=== PATIENT | male | born 1950 | race African-American/Black ===

== ENCOUNTER → 2020-06-07 10:08 | Outpatient (BNVA) | payer OTHER, MEDICARE, SELFPAY | PROVIDERS: Family Provider Family Medicine; PCP Family Medicine; Visit Provider Nurse Practitioner Family | DX: E11.37X3 Type 2 diabetes mellitus with diabetic macular edema, resolved following treatment, bilateral (principal); I10 Essential (primary) hypertension; E78.5 Hyperlipidemia, unspecified | CPT/HCPCS: 80053; 80061; 83036; 84439; 84443; 85025 ==

== ENCOUNTER 2021-03-19 11:05 | Emergency (ER) | payer MEDICARE, SELFPAY ==
[2021-03-19 11:12] VITALS: BP 171/83; PULSE 94; RESP 18; TEMP 36.7; O2SAT 99; BMI 31.4
--- NOTE | 2021-03-19 11:56 | CTR_ITS ---
PROCEDURE INFORMATION: Exam: CT Head Without Contrast Exam date and time: 03/19/2021 12:40 PM Age: 70 years old Clinical indication: Speech disturbance; Slurred speech; Additional info: Altered mental status, slurred speech TECHNIQUE: Imaging protocol: Computed tomography of the head without contrast. Radiation optimization: All CT scans at this facility use at least one of these dose optimization techniques: automated exposure control; mA and/or kV adjustment per patient size (includes targeted exams where dose is matched to clinical indication); or iterative reconstruction. COMPARISON: CT head wo con* [id number] 02/08/2017 8:13 PM RADIATION DOSE METRICS: Total DLP (mGy-cm): 881.62 FINDINGS: Brain: There is generalized chronic atrophy. The ventricles and sulci are prominent. There is decreased white matter density indicating chronic small vessel white matter ischemia. There is mineralization of the basal ganglia. No intracranial hemorrhage, edema or other acute abnormalities are seen in the brain. Cerebral ventricles: See Brain finding. Bones/joints: Unremarkable. No acute fracture. Paranasal sinuses: There is scattered mild mucosal thickening in the paranasal sinuses. Mastoid air cells: Visualized mastoid air cells are well aerated. Soft tissues: Unremarkable. CT/CT head wo con* [id number] IMPRESSION: 1. No acute intracranial abnormality. 2. Chronic atrophy with chronic white matter ischemic changes. Radiation Dose CTDIVOL = (mGy): DLP = 881.62 (mGy-cm)
[2021-03-19 12:11] LABS: Basophils % 0.5 %; Eosinophils # 0.4 10^3/uL (0.0-0.8); Eosinophils % 4.4 %; Hematocrit 47.3 % (42.0-52.0); Hemoglobin 14.5 g/dL (11.7-16.6); Lymphocytes # 1.8 10^3/uL (0.8-4.8); Lymphocytes % 22.3 %; Mean Corpuscular HGB Conc 30.7 g/dL (30.0-36.0); Mean Corpuscular Hemoglobin 28.7 pg (28.0-34.0); Mean Corpuscular Volume 93.7 fL (80-94); Mean Platelet Volume 10.3 fL (7.4-10.4); Monocytes # 0.9 10^3/uL (0.2-0.9); Monocytes % 10.9 %; Neutrophils # 5.06 10^3/uL (1.8-7.7); Neutrophils % 61.8 %; Nucleated Red Blood Cells % 0 %; Platelet Count 226 10^3/cmm (130-400); Red Blood Count 5.05 10^6/uL (4.1-5.3); Red Cell Distribution Width 11.9 % (12.1-15.1); White Blood Count 8.2 10^3/uL (4.0-10.0)
[2021-03-19 12:24] LABS: Alanine Aminotransferase 14 U/L (0-41); Albumin Level 4.3 g/dL (3.5-5.2); Alkaline Phosphatase 79 IU/L (40-130); Anion Gap 14.2 (5-19); Aspartate Amino Transferase 15 U/L (0-40); Blood Urea Nitrogen 11 mg/dL (8-23); Calcium 8.8 mg/dL (8.5-10.5); Carbon Dioxide 24 mmol/L (22-29); Chloride 102 mmol/L (98-107); Glomerular Filtration Rate 89.6 mL/min (90-130); Glucose 121 mg/dL (65-115); Magnesium 2.2 mg/dL (1.7-2.3); Osmolality Calculated 283 mOsm/kg (285-295); Potassium 4.2 mmol/L (3.5-5.1); Sodium 136 mmol/L (136-145); Thyroid Stimulating Hormone 2.37 uIU/mL (0.27-4.20); Total Bilirubin 0.4 mg/dL (0.15-1.2); Total Protein 7.3 g/dL (6.6-8.7)
--- NOTE | 2021-03-19 13:08 | ED_ITS ---
HPI - Neuro Symptoms/Deficit General: Chief Complaint: Neuro Symptoms/Deficit Stated Complaint: STUMBLING Time Seen by Provider: 03/19/21 11:31 History of Present Illness: HPI Narrative: 70-year-old male was brought in by his . She states about 10 AM he was stumbling and seems somewhat confused. He was difficult to understand. Patient stated he felt somewhat dizzy. He denied that he was having any difficulty walking. He denied any weakness in his arms or legs. He took 6 x 81 mg aspirins. His states that he is supposed to take an aspirin every day but he does not do that. She also states she does not take his blood pressure medicine on a regular basis. states that he started doing better 15-20 minutes after it started. Patient denies any fever chills. No nausea or vomiting. No diarrhea constipation. No pain or burning with urination. He has not had any difficulty breathing or shortness of breath. He denies any chest pain. Onset (ago): hour(s) (This occurred at approximately 10 AM) Timing confirmed by: spouse Location: speech and left face History of same: No Severity: moderate Quality: other (Symptoms resolved 15-20 minutes after they started.) Relieving factors: rest Exacerbating factors: none Context: sudden onset On Anticoagulants: No (He is supposed to take aspirin every day but he does not do that.) Associated symptoms: Reports vertigo (He states he did feel somewhat dizzy at that time.); Deny chest pain, cough, diaphoresis, fevers/chills, headache(s), nausea, seizures, short of breath, syncope, tingling, vomiting or weakness Treatments Prior to Arrival: Aspirin (Patient took 6 x 81 mg aspirin) Review of Systems Const: Denies: fever(s), chills, body aches, change in appetite, fatigue, night sweats or diaphoresis Eyes: Reports: other (Patient is blind in the right eye.); Denies: change in vision or blurry vision Card: Reports: lightheadedness; Denies: chest pain, palpitations, irregular heart rhythm, edema, swelling of feet/ankles, syncope, pre-syncope, dyspnea on exertion, orthopnea or leg pain with exertion Resp: Denies: dyspnea, productive cough, non-productive cough, wheezing, stridor or pain on inspiration GI: Denies: abdominal pain, nausea, vomiting, dysphagia, diarrhea or constipation : Denies: flank pain, difficulty urinating or dysuria Musc: Denies: neck pain, back pain, extremity pain, extremity swelling, joint pain, joint swelling, limited range of motion or muscle weakness Neuro: Reports: dizziness, vertigo (He states he did feel somewhat dizzy at that time.), Slurred speech present and other (Left-sided facial droop); Denies: headache(s), numbness in extremities, weakness in extremities, sensory changes, lack of coordination, difficulty walking or confusion PFSH ED PFSH: Medical History Amputated toe Social History Smoking and tobacco status: former smoker Quit status (tobacco): has quit using tobacco Year quit tobacco: 1997 Alcohol intake: never NIH stroke score NIHSS: Level Of Consciousness - 1a: 0 Level Of Consciousness Questions - 1b: Both Correct Level Of Consciousness Commands - 1c: Both Correct Best Gaze - 2: Normal Visual [place] - 3: No Visual Loss Facial Palsy - 4: Normal Motor Arm Right - 5: No Drift Motor Arm Left - 5: No Drift Motor Leg Right - 6: No Drift Motor Leg Left - 6: No Drift Limb Ataxia - 7: Absent Sensory - 8: Normal Best Language - 9: No Aphasia Dysarthia - 10: Normal Extinction And Inattention - 11: 0 Score: Total Score: 0 Physical Exam Const: COMMON NORMALS: patient oriented x3 and alert GENERAL APPEARANCE: well kempt; not lethargic ORIENTATION/CONSCIOUSNESS: Yes oriented to person, Yes oriented to place and Yes oriented to time; not lethargic HENMT: COMMON NORMALS: normocephalic, atraumatic, hearing grossly normal bilaterally, Normal external nose present, Normal nasal mucous membranes and turbinates present and moist oral mucous membranes HEAD & SCALP: normal to inspection, normocephalic and atraumatic NOSE: Normal external nose present and Normal nasal mucous membranes and turbinates present Eye: COMMON NORMALS: Equal, round and reactive pupils present (Patient is blind in the right eye.), EOMs intact bilaterally, no scleral icterus and no papilledema GENERAL EYE: no appearance normal, both eyes and all related structures (Patient is blind in the right eye. Left eye is unremarkable) and normal light reflex (Normal in the left only.) DIRECT OPHTHALMOSCOPY: Yes normal light reflex (Normal in the left only.) and Yes no papilledema Neck/C-Spine: COMMON NORMALS: full ROM, supple, no meningeal signs, no JVD and Thyroid normal GENERAL: Yes normal visual inspection, Yes trachea midline, No anterior neck swelling and No tender THYROID: Thyroid normal CERVICAL SPINE: No cervical ROM normal Chest: COMMONS NORMALS: normal inspection of the chest Resp: COMMON NORMALS: normal respiratory effort, No retractions, No use of accessory muscles and clear to auscultation bilaterally EFFORT & INSPECTION: Yes able to speak in complete sentences, Yes symmetric chest movement, No abnormal respiratory pattern, No tachypneic, No respiratory distress, No decreased respiratory effort, No labored, No grunting, No stridor, No Actively coughing, No retractions and No uses accessory muscles AUSCULTATION: clear to auscultation bilaterally, no crackles, no rales, no rhonchi, no wheezes, breath sounds present and lung sounds not diminished Cardio: COMMON NORMALS: no JVD, regular rate, regular rhythm, No gallops present (Cardio), No clicks present (Cardio), No murmurs present (Cardio) and No rub (Cardio) RATE: regular rate RHYTHM: regular rhythm HEART SOUNDS: no murmurs GI: COMMON NORMALS: Soft to palpation, non-tender, No hepatosplenomegaly present and no masses PALPATION: Yes Soft to palpation and Yes No hepatosplenomegaly present : COMMON NORMALS: Yes no CVA tenderness BLADDER/KIDNEY EXAM: Yes no CVA tenderness Back/Pelvis: COMMON NORMALS: no CVA tenderness Extremity: COMMON NORMALS: full ROM, capillary refill normal and no joint enlargement GENERAL: Yes normal exam except as noted Neuro: COMMON NORMALS: patient oriented x3, CN's II-XII intact bilaterally, moves all extremities, no focal motor deficits and gait normal SENSORIUM/ORIENTATION: Yes alert, Yes oriented to person, Yes oriented to place, Yes oriented to time, No Orientation impaired, No lethargic, No somnolent, No obtunded and No stuporous MENINGEAL SIGNS: Yes no meningeal signs COORDINATION/BALANCE: [id number] test normal and fimp-ul-qhet test normal SPEECH: speech normal GAIT: Yes Normal gait present COORDINATION: [id number] test normal and [id number]-uk-[id number] test normal Psych: COMMON NORMALS: mental status grossly normal, Normal thought process present, cooperative, normal affect, speech normal and activity/motor behavior normal APPEARANCE: Yes grossly normal and Yes well kempt ATTITUDE: Yes calm and Yes engaged ACTIVITY/MOTOR BEHAVIOR: Yes appropriate eye contact SPEECH: Yes normal speech THOUGHT PROCESS: Normal thought process present THOUGHT CONTENT: Yes Normal thought content present ATTENTION/CONCENTRATION: Yes attention grossly intact and Yes concentration grossly intact Skin: COMMON NORMALS: no rashes or lesions noted GENERAL SKIN EXAM: no rashes or lesions noted Course Vital Signs: Vital signs: Vital Signs Temperature 98.1 F 03/19/21 14:29 Pulse Rate 94 03/19/21 11:12 Respiratory Rate 18 03/19/21 14:29 Blood Pressure 171/83 03/19/21 11:12 Pulse Oximetry 99 03/19/21 14:29 MDM - Neuro Symptoms/Deficit Lab Data: Labs: Lab Results 03/19/21 03/19/21 03/19/21 Range/Units 11:40 11:40 13:39 WBC 8.2 (4.0-10.0) 10^3/ uL RBC 5.05 (4.1-5.3) 10^6/u L Hgb 14.5 (11.7-16.6) g/dL Hct 47.3 (42.0-52.0) % MCV 93.7 (80-94) fL MCH 28.7 (28.0-34.0) pg MCHC 30.7 (30.0-36.0) g/dL RDW 11.9 L (12.1-15.1) % Plt Count 226 (130-400) 10^3/c mm MPV 10.3 (7.4-10.4) fL Neut % (Auto) 61.8 % Lymph % (Auto) 22.3 % [place] % (Auto) 10.9 % Eos % (Auto) 4.4 % Baso % (Auto) 0.5 % Neut # (Auto) 5.06 (1.8-7.7) 10^3/u L Lymph # (Auto) 1.8 (0.8-4.8) 10^3/u L [place] # (Auto) 0.9 (0.2-0.9) 10^3/u L Eos # (Auto) 0.4 (0.0-0.8) 10^3/u L Baso # (Auto) 0.0 (0.0-0.1) 10^3/u L Nucleated RBC % (a uto) 0 % Nucleated RBCs # 0.0 /100WBC Sodium 136 (136-145) mmol/L Potassium 4.2 (3.5-5.1) mmol/L Chloride 102 (98-107) mmol/L Carbon Dioxide 24 (22-29) mmol/L Anion Gap 14.2 (5-19) BUN 11 (8-23) mg/dL Creatinine 1.0 (0.7-1.2) mg/dL GFR Calculation 89.6 L (90-130) mL/min Glucose 121 H (65-115) mg/dL Calculated Osmolal ity 283 L (285-295) mOsm/k g Calcium 8.8 (8.5-10.5) mg/dL Magnesium 2.2 (1.7-2.3) mg/dL Total Bilirubin 0.4 (0.15-1.2) mg/dL AST 15 (0-40) U/L ALT 14 (0-41) U/L Alkaline Phosphata se 79 (40-130) IU/L Total Protein 7.3 (6.6-8.7) g/dL Albumin 4.3 (3.5-5.2) g/dL Globulin 3.0 (1.3-4.6) g/dL TSH 2.37 (0.27-4.20) uIU/ mL Urine Color Straw (Yellow) Urine Appearance Clear (CLEAR) Urine pH 7 (5-7) Ur Specific Gravit y 1.005 (1.005-1.030) Urine Protein Neg (Negative) Urine Glucose (UA) Norm (Normal) Urine Ketones Negative (Negative) Urine Blood Neg (Negative) Urine Nitrate Negative (Negative) Urine Bilirubin Neg (Negative) Urine Urobilinogen Norm (Negative) mg/dL Ur Leukocyte [place] ase Negative (Negative) Discharge Plan Discharge Patient Disposition: Home Clinical Impression: TIA (transient ischemic attack), Dizziness Type 2 diabetes mellitus Qualifiers: Diabetes mellitus retirement insulin use: without 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 Diabetes mellitus complication status: without complication Qualified Code(s): E11.9 - Type 2 diabetes mellitus without complications Condition: Stable Prescriptions: No Action aspirin [Adult Aspirin Regimen] 81 mg tablet,delayed release (DR/EC) 81 mg PO DAILY RF: 0 brimonidine 0.1 % drops 1 drop ophthalmic (eye) BID RF: 0 latanoprost 0.005 % drops 1 drop ophthalmic (eye) BEDTIME RF: 0 metformin 500 mg tablet 500 mg PO DAILY PRN (Reason: diabetes) RF: 0 dorzolamide-timolol 22.3-6.8 mg/mL drops 1 drp ophthalmic (eye) BID RF: 0 Vitamin B-12 1 tab PO PRN RF: 0 Vitamin C 1 tab PO PRN RF: 0 Vitamin D3 1 cap PO PRN RF: 0 lisinopril 5 mg tablet 5 mg PO DAILY RF: 0 Discharge Orders: Discharge ED (Routine); Ordered 03/19/21 Ordered By: Jakob Noonan Referrals: Tonio Delatorre DO [Primary Care Provider] - Discharge Diet: Diabetic Discharge Activity: Increase activity as tolerated Patient Instructions: Opioid Safety Activity Restrictions/Additional Instructions: Take your aspirin every day. Take your blood pressure medicines every day. Take all of your other medications as prescribed. Please monitor your blood pressure on a regular basis. Continue to monitor your blood sugars. Follow-up with your primary care physician. 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
--- NOTE | 2021-03-19 13:15 | PC.PHAR ---
pt states he takes care of his own medications-pt states he hasnt taken his lisinopril for a month or maybe less-pt states he takes metformin 500mg once a day prn-ext med history shows last filled on 11/21/20 90d/s as 500mg bid-
[2021-03-19 13:59] LABS: Add Urine Microscopic? NO; Charge for UA Resulting for Rev
[2021-03-19 14:04] LABS: Bilirubin Urine Neg (Negative); Blood Urine Neg (Negative); Glucose Urine UA Norm (Normal); Ketones Urine Negative (Negative); Leukocyte Esterase Urine Negative (Negative); Nitrate Urine Negative (Negative); Protein Urine Neg (Negative); Specific Gravity, Urine 1.005 (1.005-1.030); Urine Appearance Clear (CLEAR); Urine Color Straw (Yellow); Urobilinogen Urine Norm (Negative); pH Urine 7 (5-7)
[2021-03-19 14:29] VITALS: RESP 18; TEMP 36.7; O2SAT 99
== END 2021-03-19 14:29 | disposition home or self-care (01) ==
PROVIDERS: Emergency Provider Emergency Medicine; PCP Family Medicine
DX: G45.9 Transient cerebral ischemic attack, unspecified (principal); R42 Dizziness and giddiness; E11.9 Type 2 diabetes mellitus without complications; Z79.82 Long term (current) use of aspirin; Z87.891 Personal history of nicotine dependence
CPT/HCPCS: 70450; 80053; 81003; 83735; 84443; 85025; 99283

== ENCOUNTER → 2021-03-22 10:06 | Outpatient (BNVA) | payer MEDICARE, SELFPAY | PROVIDERS: PCP Family Medicine; Visit Provider Family Medicine | DX: E11.9 Type 2 diabetes mellitus without complications (principal); G45.9 Transient cerebral ischemic attack, unspecified; R42 Dizziness and giddiness; Z09 Encounter for follow-up examination after completed treatment for conditions other than malignant neoplasm; I10 Essential (primary) hypertension | CPT/HCPCS: 80061; 83036 ==

== ENCOUNTER 2021-04-03 10:04 | Observation (INO) | payer MEDICARE, SELFPAY ==
[2021-04-03] VITALS (12 sets, daily range): BP systolic 158–199; BP diastolic 79–105; PULSE 48–99; RESP 16–18; TEMP 36.3–37.3; O2SAT 95–100; BMI 31.5
--- NOTE | 2021-04-03 10:34 | ECG_ITS ---
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 Measurements Intervals Maud Rate: 51 P: 51 PA: 180 QRS: -47 QRSD: 110 T: -16 QT: 417 QTc: 386 Interpretive Statements SINUS BRADYCARDIA POSSIBLE RIGHT VENTRICULAR CONDUCTION DELAY [RSR (QR) IN V1/V2] LEFT ANTERIOR FASCICULAR BLOCK [QRS AXIS <= -45, QR IN I, RS IN II] MODERATE VOLTAGE CRITERIA FOR LVH, CONSIDER NORMAL VARIANT [MEETS CRITERIA IN ONE OF: R(aVL), S(V1), R(V5), R(V5/V6)+S(V1)] No previous ECG available for comparison Electronically Signed On 04-04-2021 9:27:29 CDT by Cassie Tamayo M.D. [email or web address]
--- NOTE | 2021-04-03 10:34 | CT_ITS ---
WS: [id number] CT HEAD NONCONTRAST HISTORY: Symptoms of Acute Stroke TECHNIQUE: Contiguous axial imaging performed through the brain in 2.5 mm imaging. Bone and soft tiss ue windows. Sagittal and coronal reformats reviewed. All CT scans at [facility] use at ast one of these dose optimization techniques: automated exposure control; mA and/or kV adjustment pe r patient size (includes targeted exams where dose is matched to clinical indication); or iterative r econstruction. DLP: 1010.81 mGy-cm. COMPARISON: 03/19/2021 No acute intracranial hemorrhage, midline shift or mass effect. Mild atrophy with moderate to severe chronic microvascular ischemic changes in the white matter. Ther e is a new area of decreased attenuation in the RIGHT bryant radiata. Bilateral basal ganglia calcif ications. Ventricles: Normal size with no hydrocephalus. Paranasal sinuses: Mild mucoperiosteal thickening in the LEFT maxillary sinus. No air-fluid levels. Mastoid air cells: Well pneumatized. Calvarium and scalp: No skull fracture. There is mild scalp edema. Abnormal RIGHT orbit. CT/CT head wo con* [id number] IMPRESSION: 1. No acute intracranial hemorrhage or edema. 2. Subacute infarct has developed since 03/19/2021 within the RIGHT bryant radi emile. 3. Moderate chronic microvascular ischemic changes. Notified Merlin Mendoza DO at 04/03/2021 10:46 AM.
--- NOTE | 2021-04-03 10:35 | ED_ITS ---
HPI - Neuro Symptoms/Deficit General: Chief Complaint: Neuro Symptoms/Deficit Stated Complaint: TIA's, Here Recently Time Seen by Provider: 04/03/21 10:22 History of Present Illness: HPI Narrative: 70-year-old male presents emergency room complaining of left-sided facial droop slurring of speech and left-sided weakness. He went to bed last night said he felt dizzy that was around 930 then this morning when he woke up he had left-sided weakness and facial droop. He has some distortion of facial muscles due to loss of the right eye. Patient does have a little bit of dizziness he was evaluated 2 weeks ago and no significant abnormality was found at that time. He was started on aspirin but he does not appear to be on a statin according to his medication list. Onset (ago): hour(s) Timing confirmed by: spouse Location: speech, left face, left arm and left leg History of same: Yes Severity: mild Quality: weak and tingling Associated symptoms: Deny chest pain, malaise, nausea or vomiting Review of Systems Const: Denies: fever(s), chills, body aches, change in appetite, fatigue or malaise ENMT: Denies: throat pain, ear or mastoid pain, nasal discharge or nasal congestion Card: Denies: chest pain, edema, dyspnea on exertion or orthopnea Resp: Denies: dyspnea, productive cough or non-productive cough GI: Denies: abdominal pain, nausea, vomiting, hematemesis, coffee ground emesis, diarrhea, constipation, bloating, hematochezia or melena : Denies: flank pain, dysuria, urinary frequency or urinary urgency Skin/Breast: Denies: rash or pruritus PFSH ED PFSH: Medical History (Updated 04/04/21 @ 16:56 by Merlin Mendoza DO) Amputated toe Social History Smoking and tobacco status: former smoker Quit status (tobacco): has quit using tobacco Year quit tobacco: 1997 Alcohol intake: never NIH stroke score NIHSS: Level Of Consciousness - 1a: 0 Level Of Consciousness Questions - 1b: Both Correct Level Of Consciousness Commands - 1c: Both Correct Best Gaze - 2: Normal Visual [place] - 3: No Visual Loss Facial Palsy - 4: Par tial Paralysis Motor Arm Right - 5: No Drift Motor Arm Left - 5: No Drift Motor Leg Right - 6: No Drift Motor Leg Left - 6: No Drift (His strength is not as brisk in the left compared to the right however he is able to perform all functions leg raising and [id number]) Limb Ataxia - 7: Absent Sensory - 8: Normal Best Language - 9: No Aphasia Dysarthia - 10: Normal E xtinction And Inattention - 11: 0 Score: Total Score: 2 Physical Exam Const: COMMON NORMALS: no acute distress GENERAL APPEARANCE: cooperative and comfortable ORIENTATION/CONSCIOUSNESS: Yes awake, Yes oriented to person, Yes oriented to place and Yes oriented to time HENMT: COMMON NORMALS: normocephalic, atraumatic, hearing grossly normal bilaterally, external ears normal, EAC's normal, TM's normal bilaterally, Normal nasal mucous membranes and turbinates present, moist oral mucous membranes and oropharynx normal HEAD & SCALP: normocephalic and atraumatic NOSE: Normal nasal mucous membranes and turbinates present EXTERNAL EAR: Yes external ears normal EXTERNAL AUDITORY CANAL: EAC's normal TYMPANIC MEMBRANE: TM's normal bilaterally Eye: COMMON NORMALS: Equal, round and reactive pupils present, EOMs intact bilaterally, conjunctivae normal and no scleral icterus CONJUNCTIVA: Yes conjunctivae normal PUPIL: Yes Equal, round and reactive pupils present Neck/C-Spine: COMMON NORMALS: full ROM, no lymphadenopathy, supple and no JVD Lymph: LYMPHATIC: no lymphadenopathy noted and no lymphedema noted Resp: COMMON NORMALS: normal respiratory effort, No retractions, No use of accessory muscles and clear to auscultation bilaterally AUSCULTATION: clear to auscultation bilaterally Cardio: COMMON NORMALS: no JVD, regular rate, regular rhythm and No murmurs present (Cardio) RATE: regular rate RHYTHM: regular rhythm GI: COMMON NORMALS: Soft to palpation and No hepatosplenomegaly present AUSCULTATION: Yes normoactive bowel sounds PALPATION: Yes Soft to palpation, No Tenderness to palpation present (GI), No Guarding due to palpation present (GI) and Yes No hepatosplenomegaly present Extremity: COMMON NORMALS: normal to inspection, capillary refill normal, no clubbing, cyanosis or edema, no calf tenderness and no pedal edema Neuro: SENSORIUM/ORIENTATION: Yes oriented to person, Yes oriented to place and Yes oriented to time Skin: COMMON NORMALS: no rashes or lesions noted GENERAL SKIN EXAM: no rashes or lesions noted Course Vital Signs: Vital signs: Vital Signs Temperature 98.0 F 04/04/21 11:44 Pulse Rate 63 04/04/21 11:44 Respiratory Rate 16 04/04/21 11:44 Blood Pressure 142/84 04/04/21 11:44 Pulse Oximetry 98 04/04/21 11:44 MDM - Neuro Symptoms/Deficit MDM Narrative: Medical decision making narrative: Subacute CVA. Admitted for further work-up including echo carotids etc. Lab Data: Labs: Lab Results 04/03/21 04/03/21 04/03/21 Range/Units 11:01 11:01 11:01 WBC 8.1 (4.0-10.0) 10^3/ uL RBC 5.27 (4.1-5.3) 10^6/u L Hgb 15.5 (11.7-16.6) g/dL Hct 50.0 (42.0-52.0) % MCV 94.9 H (80-94) fL MCH 29.4 (28.0-34.0) pg MCHC 31.0 (30.0-36.0) g/dL RDW 11.9 L (12.1-15.1) % Plt Count 215 (130-400) 10^3/c mm MPV 10.7 H (7.4-10.4) fL Neut % (Auto) 62.9 % Lymph % (Auto) 24.9 % [place] % (Auto) 8.5 % Eos % (Auto) 3.0 % Baso % (Auto) 0.5 % Neut # (Auto) 5.08 (1.8-7.7) 10^3/u L Lymph # (Auto) 2.0 (0.8-4.8) 10^3/u L [place] # (Auto) 0.7 (0.2-0.9) 10^3/u L Eos # (Auto) 0.2 (0.0-0.8) 10^3/u L Baso # (Auto) 0.0 (0.0-0.1) 10^3/u L Nucleated RBC % (a uto) 0 % Nucleated RBCs # 0.0 /100WBC PT 14.10 (12.1-14.9) SECO NDS INR 1.05 (0.8-1.2) APTT 30.7 (23.9-36.7) SECO NDS Sodium 137 (136-145) mmol/L Potassium 4.5 (3.5-5.1) mmol/L Chloride 102 (98-107) mmol/L Carbon Dioxide 29 (22-29) mmol/L Anion Gap 10.5 (5-19) BUN 12 (8-23) mg/dL Creatinine 1.1 (0.7-1.2) mg/dL GFR Calculation 80.3 L (90-130) mL/min Glucose 124 H (65-115) mg/dL Calculated Osmolal ity 285 (285-295) mOsm/k g Calcium 9.2 (8.5-10.5) mg/dL Total Bilirubin 0.5 (0.15-1.2) mg/dL AST 12 (0-40) U/L ALT 12 (0-41) U/L Alkaline Phosphata se 82 (40-130) IU/L Total Protein 7.6 (6.6-8.7) g/dL Albumin 4.6 (3.5-5.2) g/dL Globulin 3.0 (1.3-4.6) g/dL Urine Color (Yellow) Urine Appearance (CLEAR) Urine pH (5-7) Ur Specific Gravit y (1.005-1.030) Urine Protein (Negative) Urine Glucose (UA) (Normal) Urine Ketones (Negative) Urine Blood (Negative) Urine Nitrate (Negative) Urine Bilirubin (Negative) Prot Sulfosalicyli c Acd (Negative) Urine Urobilinogen (Negative) mg/dL Ur Leukocyte [place] ase (Negative) Urine Opiates Scre en (Negative) ng/mL Ur Barbiturates Sc reen (Negative) ng/mL Ur Phencyclidine S crn (Negative) ng/mL Ur Amphetamines Sc reen (Negative) ng/mL U Benzodiazepines Scrn (Negative) ng/mL Urine Cocaine Scre en (Negative) ng/mL U Marijuana (THC) Screen (Negative) ng/mL 04/03/21 04/03/21 Range/Units 11:25 11:25 WBC (4.0-10.0) 10^3/ uL RBC (4.1-5.3) 10^6/u L Hgb (11.7-16.6) g/dL Hct (42.0-52.0) % MCV (80-94) fL MCH (28.0-34.0) pg MCHC (30.0-36.0) g/dL RDW (12.1-15.1) % Plt Count (130-400) 10^3/c mm MPV (7.4-10.4) fL Neut % (Auto) % Lymph % (Auto) % [place] % (Auto) % Eos % (Auto) % Baso % (Auto) % Neut # (Auto) (1.8-7.7) 10^3/u L Lymph # (Auto) (0.8-4.8) 10^3/u L [place] # (Auto) (0.2-0.9) 10^3/u L Eos # (Auto) (0.0-0.8) 10^3/u L Baso # (Auto) (0.0-0.1) 10^3/u L Nucleated RBC % (a uto) % Nucleated RBCs # /100WBC PT (12.1-14.9) SECO NDS INR (0.8-1.2) APTT (23.9-36.7) SECO NDS Sodium (136-145) mmol/L Potassium (3.5-5.1) mmol/L Chloride (98-107) mmol/L Carbon Dioxide (22-29) mmol/L Anion Gap (5-19) BUN (8-23) mg/dL Creatinine (0.7-1.2) mg/dL GFR Calculation (90-130) mL/min Glucose (65-115) mg/dL Calculated Osmolal ity (285-295) mOsm/k g Calcium (8.5-10.5) mg/dL Total Bilirubin (0.15-1.2) mg/dL AST (0-40) U/L ALT (0-41) U/L Alkaline Phosphata se (40-130) IU/L Total Protein (6.6-8.7) g/dL Albumin (3.5-5.2) g/dL Globulin (1.3-4.6) g/dL Urine Color Straw (Yellow) Urine Appearance Clear (CLEAR) Urine pH 8 H (5-7) Ur Specific Gravit y 1.010 (1.005-1.030) Urine Protein Neg (Negative) Urine Glucose (UA) Norm (Normal) Urine Ketones Negative (Negative) Urine Blood Neg (Negative) Urine Nitrate Negative (Negative) Urine Bilirubin Neg (Negative) Prot Sulfosalicyli c Acd Negative (Negative) Urine Urobilinogen Norm (Negative) mg/dL Ur Leukocyte [place] ase Negative (Negative) Urine Opiates Scre en Negative (Negative) ng/mL Ur Barbiturates Sc reen Negative (Negative) ng/mL Ur Phencyclidine S crn Negative (Negative) ng/mL Ur Amphetamines Sc reen Negative (Negative) ng/mL U Benzodiazepines Scrn Negative (Negative) ng/mL Urine Cocaine Scre en Negative (Negative) ng/mL U Marijuana (THC) Screen Negative (Negative) ng/mL Discharge Plan Discharge Patient Disposition: Admitted As Inpatient Admit Provider: Yevgeniy Joyner Clinical Impression: Acute CVA (cerebrovascular accident), Type 2 diabetes mellitus, Hypertension Condition: Stable Coding Level of Care Code 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
[2021-04-03 11:29] LABS: Basophils % 0.5 %; Eosinophils # 0.2 10^3/uL (0.0-0.8); Hemoglobin 15.5 g/dL (11.7-16.6); Lymphocytes % 24.9 %; Mean Corpuscular Hemoglobin 29.4 pg (28.0-34.0); Mean Corpuscular Volume 94.9 fL (80-94); Mean Platelet Volume 10.7 fL (7.4-10.4); Monocytes # 0.7 10^3/uL (0.2-0.9); Monocytes % 8.5 %; Neutrophils # 5.08 10^3/uL (1.8-7.7); Neutrophils % 62.9 %; Nucleated Red Blood Cells % 0 %; Platelet Count 215 10^3/cmm (130-400); Red Blood Count 5.27 10^6/uL (4.1-5.3); Red Cell Distribution Width 11.9 % (12.1-15.1); White Blood Count 8.1 10^3/uL (4.0-10.0)
[2021-04-03 11:30] LABS: INR 1.05 (0.8-1.2)
[2021-04-03 11:31] LABS: Partial Thromboplastin Time 30.7 SECONDS (23.9-36.7)
[2021-04-03 11:32] LABS: Add Urine Microscopic? NO; Charge for UA Resulting for Rev
[2021-04-03 11:32] LABS: Alanine Aminotransferase 12 U/L (0-41); Albumin Level 4.6 g/dL (3.5-5.2); Alkaline Phosphatase 82 IU/L (40-130); Anion Gap 10.5 (5-19); Aspartate Amino Transferase 12 U/L (0-40); Blood Urea Nitrogen 12 mg/dL (8-23); Calcium 9.2 mg/dL (8.5-10.5); Carbon Dioxide 29 mmol/L (22-29); Chloride 102 mmol/L (98-107); Glomerular Filtration Rate 80.3 mL/min (90-130); Glucose 124 mg/dL (65-115); Osmolality Calculated 285 mOsm/kg (285-295); Potassium 4.5 mmol/L (3.5-5.1); Sodium 137 mmol/L (136-145); Total Bilirubin 0.5 mg/dL (0.15-1.2); Total Protein 7.6 g/dL (6.6-8.7)
[2021-04-03 11:44] LABS: Bilirubin Urine Neg (Negative); Blood Urine Neg (Negative); Glucose Urine UA Norm (Normal); Ketones Urine Negative (Negative); Leukocyte Esterase Urine Negative (Negative); Nitrate Urine Negative (Negative); Protein Urine Neg (Negative); Sulfosalicylic Acid Urine Negative (Negative); Urine Appearance Clear (CLEAR); Urine Color Straw (Yellow); Urobilinogen Urine Norm (Negative); pH Urine 8 (5-7)
[2021-04-03 11:50] LABS: Amphetamines Screen Urine Negative (Negative); Barbiturates Screen Urine Negative (Negative); Benzodiazepines Screen Urine Negative (Negative); Cocaine Screen Urine Negative (Negative); Opiate Screen Urine Negative (Negative); PCP Screen Urine Negative (Negative); THC Screen Urine Negative (Negative)
--- NOTE | 2021-04-03 15:19 | USCV_ITS ---
Jerson Francis Age: 70 Gender: M : 1950 Exam Date: 04/03/2021 15:40 Ordering Phys: Yevgeniy Joyner MD Technologist: Dorothy Roberts Exam Location: [facility] [place]_ Indication: AC CVA Risk Factors: Previous Vascular Surgery: Right Brachial BP: / Left Brachial BP: / Right Left Velocity (cm/s) Spectral Plaque Velocity (cm/s) Spectral Plaque Syst/Diast Broadening Syst/Diast Broadening 24.90/ 7.10 Prox CCA 93.10 / 16.20 60.70/ 8.50 Mid CCA 69.40 / 14.10 62.40/ 14.50 Distal CCA 62.10 / 11.70 34.80/ 6.60 Prox ICA 29.20 / 6.00 20.30/ 6.20 Mid ICA 17.30 / 8.90 37.90/ 9.90 Distal ICA 19.30 / 6.10 44.40 ECA 55.00 0.61 ICA/CCA 0.31 Antegrade Vertebral Antegrade 42.10/ 9.20 cm/s 38.00/ 6.00 cm/s Tri Subclavian Tri 84.90 144.8 0 FINDINGS Comparison: none available. No significant elevation of systolic or diastolic velocities. Diffuse bilateral scattered calcified plaque and intimal thickening throughout the common carotid arteries and extending through the bifurcation. No elevation of velocity. Antegrade vertebral arteries. CONCLUSIONS Bilateral ICA stenosis less than 50%. Mild diffuse atherosclerosis. Dr. Mojgan Sherman DO (Electronically Signed) Final Date: 04 Apr 2021 08:14 S
--- NOTE | 2021-04-03 15:22 | PM.HP ---
Providers/Chief Complaint Primary Care Provider: Tonio Delatorre DO Chief Complaint: TIA's, Here Recently History of Present Illness Jerson Francis is a 70 year old male with past medical history of hypertension diabetes, came in today with chief complaint of acute onset of left-sided facial droop, as well as left-sided weakness, started, likely last night, last normal is unknown, not a TPA candidate, based on the low NIHSS, score.He was recently here in the ER on March 19 with similar complaints and was discharged from the ER, after a CT head without contrast was performed, and showed no acute intracranial pathology. He was continued on aspirin 81 mg p.o. daily, along with his other home medications. When I examined the patient today in the ER, he has left facial drop, I have not noted any marked this slurred speech, or gross motor weakness, sensations are intact. Upon arrival in the ER: CT head without contrast: Subacute infarct has developed since 03/19/2021 within the RIGHT bryant radiata. EKG: Sinus bradycardia CBC CMP:Nomal , urinalysis is clean, U tox negative Review of Systems Const: Denies: fever(s), chills, body aches, change in appetite or diaphoresis Card: Denies: palpitations, edema, swelling of feet/ankles, dyspnea on exertion, orthopnea or leg pain with exertion Resp: Denies: dyspnea, productive cough, wheezing or pain on inspiration GI: Denies: abdominal pain, nausea, vomiting, diarrhea or constipation : Denies: flank pain or difficulty urinating Musc: Denies: back pain, extremity pain or extremity swelling Neuro: Denies: headache(s) or confusion Medications/Allergies Home Medications Medication Instructions Recorded Confirmed Last Taken Type aspirin 81 mg tablet,delayed 81 mg PO DAILY 01/15/20 04/03/21 04/03/21 History release 6 tablets today brimonidine 0.1 % eye drops 1 drop OPHTHALMIC (EYE) BID ml 01/15/20 04/03/21 04/02/21 History latanoprost 0.005 % eye drops 1 drop OPHTHALMIC (EYE) BEDTIME 01/15/20 04/03/21 04/02/21 History dorzolamide-timolol 1 drp OPHTHALMIC (EYE) BID 03/19/21 04/03/21 04/02/21 History lisinopril 5 mg PO DAILY 03/19/21 04/03/21 04/03/21 History metformin 500 mg PO BID 03/19/21 04/03/21 Unknown History Allergies Allergy/AdvReac Type Severity Reaction Status Date / Time Penicillins Allergy Mild ALGY-Rash Verified 04/03/21 10:18 PFSH Acute PFSH: Medical History (Updated 04/03/21 @ 15:34 by Yevgeniy Joyner MD) Amputated toe Social History Smoking and tobacco status: former smoker Quit status (tobacco): has quit using tobacco Year quit tobacco: 1997 Alcohol intake: never Vitals/I&O/Wt Last Vital Signs Temp 97.9 F 04/03/21 10:11 Pulse 51 L 04/03/21 11:26 Resp 18 04/03/21 11:24 BP 172/79 04/03/21 11:24 Pulse Ox 97 04/03/21 11:24 Weight last 48 hrs Weight 102.512 kg Physical Exam Const: COMMON NORMALS: patient oriented x3 HENMT: COMMON NORMALS: normocephalic and atraumatic HEAD & SCALP: normocephalic and atraumatic Resp: COMMON NORMALS: clear to auscultation bilaterally EFFORT & INSPECTION: Yes symmetric chest movement AUSCULTATION: clear to auscultation bilaterally Cardio: COMMON NORMALS: regular rate, regular rhythm, S1 normal heart sound present, S2 normal heart sound present, No gallops present (Cardio), No murmurs present (Cardio), No rub (Cardio) and Peripheral pulses 2+ throughout RATE: regular rate RHYTHM: regular rhythm HEART SOUNDS: S1 normal heart sound present and S2 normal heart sound present PERIPHERAL PULSES: Peripheral pulses 2+ throughout GI: COMMON NORMALS: Normal to inspection, nondistended, normoactive bowel sounds present, Soft to palpation, non-tender, No hepatosplenomegaly present and no masses AUSCULTATION: Yes normoactive bowel sounds PALPATION: Yes Soft to palpation and Yes No hepatosplenomegaly present RECTAL EXAM: Yes deferred Extremity: COMMON NORMALS: no clubbing, cyanosis or edema and no pedal edema Neuro: COMMON NORMALS: patient oriented x3, moves all extremities, no focal motor deficits and no sensory deficits noted SENSORIUM/ORIENTATION: Yes alert, Yes oriented to person, Yes oriented to place and Yes oriented to time MOTOR EXAM: 5/5 motor strength present throughout, Pronator motor function not present, no tremor noted, no asterixis, Motor fasciculations not present, Normal motor muscle tone present throughout and Motor abnormalities not present OTHER: Left-sided facial droop. Data : 04/03/21 11:01 04/03/21 11:01 A&P Assessment and plan (1) Acute CVA (cerebrovascular accident): Acute CVA with left-sided facial weakness: CT head without contrast: Subacute infarct has developed since 03/19/2021 within the RIGHT bryant radiata. 2D echo: Carotid Doppler: PT/OT Evalutaion Tele 2 WEEK Event Monitor as outpatient Speech and Swallow Evaluation Permissive HTN for 48 Hrs Aspirin 81 mg po daily Plavix : 75 mg po daily Lipitor 40 mg po daily Status: Acute (2) Hypertension: Status: Acute Qualifiers: Hypertension type: essential hypertension Qualified Code(s): I10 - Essential (primary) hypertension (3) Type 2 diabetes mellitus: LDSSI FSG Hba1C: 6.6 Diabetic diet Status: Acute Qualifiers: Diabetes mellitus jail insulin use: without jail use Diabetes mellitus complication status: without complication Qualified Code(s): E11.9 - Type 2 diabetes mellitus without complications Additional A&P Information CODE STATUS: Full code DVT prophylaxis: On Lovenox Disposition: Home Attestations Medical Necessity Statement*: Patient needs to the hospital for management of acute/subacute CVA. Anticipated length of stay less than 2 midnights. 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
[2021-04-03] MEDS: enoxaparin 40 mg/0.4 mL Syringe SUBCUT (16:11)
[2021-04-03] MEDS: aspirin 81 mg Chew Tablet PO (16:12)
[2021-04-03] MEDS: clopidogrel 75 mg Tablet PO (16:12)
[2021-04-03] MEDS: amlodipine 5 mg Tablet PO (16:21)
[2021-04-03 17:39] LABS: Glucose Point of Care 79 mg/dL (70-110)
[2021-04-03 20:35] LABS: Glucose Point of Care 153 mg/dL (70-110)
[2021-04-03] MEDS: atorvastatin 40 mg Tablet 20 MG PO (21:00)
[2021-04-04] VITALS (11 sets, daily range): BP systolic 126–158; BP diastolic 66–93; PULSE 45–79; RESP 15–18; TEMP 36.6–36.8; O2SAT 96–100
--- NOTE | 2021-04-04 06:00 | USCV_ITS ---
Jerson Francis Age: 70 Gender: M : 1950 Exam Date: 04/04/2021 05:20 Ordering Phys: Merlin Mendoza DO Technologist: Swathi Bosch [place] [facility] [place]ication: CVA BP: 145 / 82 HR: 59 Rhythm: Sinus Technical Quality: TDS MEASUREMENTS (Male / Female) Normal Values 2D ECHO LV Diastolic Diameter PLAX 3.7 cm 4.2 - 5.9 / 3.9 - 5.3 cm LV Systolic Diameter PLAX 2.1 cm LV Chamber Size 3.4 cm IVS Diastolic Thickness 1.2 cm 0.6 - 1.0 / 0.6 - 0.9 cm IVS Systolic Thickness 2.3 cm LVPW Diastolic Thickness 1.3 cm 0.6 - 1.0 / 0.6 - 0.9 cm LVPW Systolic Thickness 1.9 cm RV Chamber Size 3.2 cm LVOT Diameter 2.0 cm LV Ejection Fraction 2D Teich 74.0 % LV Ejection Fraction MOD 2C 62.9 % LV Ejection Fraction 2C AL 65.4 % LA Diameter 3.2 cm LA Width 2.5 cm LA Height 3.7 cm RA Width 3.3 cm RA Height 4.3 cm Aorta at Sinotubular Diameter 4.1 cm M-MODE LV Diastolic Diameter MM 3.2 cm 4.2 - 5.9 / 3.9 - 5.3 cm LV Systolic Diameter MM 1.8 cm LV Ejection Fraction MM Teich 77.3 % IVS Diastolic Thickness MM 0.9 cm 0.6 - 1.0 / 0.6 - 0.9 cm IVS Systolic Thickness MM 1.2 cm LVPW Diastolic Thickness MM 0.8 cm 0.6 - 1.0 / 0.6 - 0.9 cm LVPW Systolic Thickness MM 1.3 cm Aortic Annulus Diameter 4.2 cm LA Ao Ratio MM 0.7 MV E Point Septal Separation 1.3 cm DOPPLER AV Peak Velocity 131.0 cm/s LVOT Peak Velocity 81.0 cm/s AV Area Cont Eq vti 2.5 cm squared AV Area Cont Eq pk 1.9 cm squared MV Area PHT 3.1 cm squared Mitral E to A Ratio 1.0 MV E' Velocity 35.0 cm/s Mitral E to MV E' Ratio 6.8 Mitral E to LV E' Lateral Ratio 5.7 Mitral E to LV E' Septal Ratio 8.3 TR Peak Velocity 125.5 cm/s TR Peak Gradient 6.3 mmHg TR Mean Velocity 85.7 cm/s TR Mean Gradient 3.4 mmHg TR Velocity Time Integral 28.9 cm TV Peak E Velocity 56.0 cm/s Right Atrial Pressure 3.0 mmHg Pulmonary Artery Systolic Pressu 9.3 mmHg PV Peak Velocity 40.0 cm/s RV Acceleration Time 0.1 s RV Ejection Time 0.4 s RV AcT/ET 0.4 FINDINGS Left Ventricle Normal left ventricular size, systolic function with no regional wall motion abnormalities. Left ventricular ejection fraction is estimated at 65 %. Normal diastolic function. Right Ventricle Normal right ventricular size and systolic function. Right ventricular systolic pressure 9.3 mmHg. Right Atrium Normal right atrial size. Left Atrium Normal left atrial size. Mitral Valve Mildly thickened mitral valve. No mitral valve stenosis. Trace mitral valve regurgitation. Aortic Valve Aortic valve not well visualized. No aortic valve stenosis. No aortic valve regurgitation. Tricuspid Valve Tricuspid valve not well visualized. Trace tricuspid valve regurgitation. Pulmonic Valve Pulmonic valve not well visualized. Trace pulmonary valve regurgitation. Pericardium No pericardial effusion. Aorta Mildly dilated aortic root measured anteroposteriorly at 41 mm. Ascending aorta not well visualized. CONCLUSIONS 1. Normal left ventricular size and systolic functionwith no regional wall motion abnormalities. Left ventricular ejection fraction is estimated at 65 %. Normal diastolic function. 2. Normal right ventricular size and systolic function. 3. No significant valvular abnormality. 4. Mildly dilated aortic root measured anteroposteriorly at 41 mm. 5. No prior similar studies to compare. Cassie Tamayo MD (Electronically Signed) Final Date: 04 Apr 2021 17:02 S
[2021-04-04 06:27] LABS: Basophils % 0.4 %; Eosinophils # 0.3 10^3/uL (0.0-0.8); Eosinophils % 3.8 %; Hematocrit 48.9 % (42.0-52.0); Hemoglobin 15.4 g/dL (11.7-16.6); Lymphocytes # 2.2 10^3/uL (0.8-4.8); Mean Corpuscular HGB Conc 31.5 g/dL (30.0-36.0); Mean Corpuscular Hemoglobin 29.4 pg (28.0-34.0); Mean Corpuscular Volume 93.5 fL (80-94); Mean Platelet Volume 10.3 fL (7.4-10.4); Monocytes # 0.9 10^3/uL (0.2-0.9); Monocytes % 12.3 %; Neutrophils % 52.2 %; Nucleated Red Blood Cells % 0 %; Platelet Count 191 10^3/cmm (130-400); Red Blood Count 5.23 10^6/uL (4.1-5.3); Red Cell Distribution Width 11.9 % (12.1-15.1); White Blood Count 7.1 10^3/uL (4.0-10.0)
[2021-04-04 06:42] LABS: Chol HDL Ratio 5.61 mg/dL (1.0-5.00); Cholesterol 157 mg/dL (0-200); HDL Cholesterol 28 mg/dL (60-100); LDL Cholesterol Calculated 92 mg/dL (50-129); LDL HDL Ratio 3.29 RATIO (0.00-3.22); Triglycerides 185 mg/dL (0-150)
[2021-04-04 06:45] LABS: Glucose Point of Care 91 mg/dL (70-110)
[2021-04-04 06:50] LABS: Alanine Aminotransferase 11 U/L (0-41); Albumin Level 4.3 g/dL (3.5-5.2); Alkaline Phosphatase 72 IU/L (40-130); Anion Gap 14.6 (5-19); Aspartate Amino Transferase 13 U/L (0-40); Blood Urea Nitrogen 12 mg/dL (8-23); Calcium 8.8 mg/dL (8.5-10.5); Carbon Dioxide 24 mmol/L (22-29); Chloride 104 mmol/L (98-107); Globulin 3.1 g/dL (1.3-4.6); Glomerular Filtration Rate 80.3 mL/min (90-130); Glucose 84 mg/dL (65-115); Magnesium 2.2 mg/dL (1.7-2.3); Osmolality Calculated 287 mOsm/kg (285-295); Potassium 3.6 mmol/L (3.5-5.1); Sodium 139 mmol/L (136-145); Thyroid Stimulating Hormone 1.76 uIU/mL (0.27-4.20); Total Bilirubin 0.6 mg/dL (0.15-1.2); Total Protein 7.4 g/dL (6.6-8.7)
[2021-04-04 07:03] LABS: Estmated Average Glucose 140; Hemoglobin A1C 6.5 % (4.0-6.0)
[2021-04-04] MEDS: atorvastatin 40 mg Tablet PO (08:48)
[2021-04-04] MEDS: aspirin 81 mg Chew Tablet PO (08:49)
[2021-04-04] MEDS: amlodipine 5 mg Tablet PO (08:49)
[2021-04-04] MEDS: clopidogrel 75 mg Tablet PO (08:49)
[2021-04-04] MEDS: dorzolamide/timolol Op Soln 10 mL Btl 1 DROP EYE-LEFT ×2 (11:11→18:07)
--- NOTE | 2021-04-04 11:58 | PC.OT ---
OT NOTE: OT EVALUATION/SCREEN COMPLETED. PATIENT SHOWS NO DEFICITS ROM OR UB MX STRENGTH. NO DEFICITS NOTED IN ADL PERFORMANCE. NO FURTHER SKILLED OT REQUIRED.
--- NOTE | 2021-04-04 12:00 | PC.NUTR ---
MD consult for dietitian completed. See nutrition assessment for full details.
--- NOTE | 2021-04-04 12:11 | P.PN_ITS ---
Subjective Subjective: Interval history: No significant interval change in left facial weakness.No marked speech abnormality noted. No dysphagia. Vitals/I&O/Wt Last Vital Signs Temp 98.0 F 04/04/21 11:44 Pulse 63 04/04/21 11:44 Resp 16 04/04/21 11:44 BP 142/84 04/04/21 11:44 Pulse Ox 98 04/04/21 11:44 04/03/21 04/04/21 04/04/21 22:59 06:59 14:59 Intake Total 120 / 120 120 / 120 Output Total 500 / 500 400 / 400 Balance 120 / 120 -500 / -380 -280 / -280 Weight last 48 hrs Weight 102.512 kg Physical Exam Const: COMMON NORMALS: patient oriented x3 and alert ORIENTATION/CONSCIOUSNESS: Yes oriented to person, Yes oriented to place and Yes oriented to time HENMT: COMMON NORMALS: normocephalic and atraumatic HEAD & SCALP: normocephalic and atraumatic Resp: COMMON NORMALS: clear to auscultation bilaterally EFFORT & INSPECTION: Yes symmetric chest movement AUSCULTATION: clear to auscultation bilaterally Cardio: COMMON NORMALS: regular rate, regular rhythm, S1 normal heart sound present, S2 normal heart sound present, No gallops present (Cardio), No murmurs present (Cardio), No rub (Cardio) and Peripheral pulses 2+ throughout RATE: regular rate RHYTHM: regular rhythm HEART SOUNDS: S1 normal heart sound present and S2 normal heart sound present PERIPHERAL PULSES: Peripheral puls es 2+ throughout GI: COMMON NORMALS: Normal to inspection, nondistended, normoactive bowel sounds present, Soft to palpation, non-tender, No hepatosplenomegaly present and no masses AUSCULTATION: Yes normoactive bowel sounds PALPATION: Yes Soft to palpation and Yes No hepatosplenomegaly present RECTAL EXAM: Yes deferred Extremity: COMMON NORMALS: no clubbing, cyanosis or edema and no pedal edema Neuro: COMMON NORMALS: patient oriented x3, moves all extremities, no focal motor deficits and no sensory deficits noted SENSORIUM/ORIENTATION: Yes alert, Yes oriented to person, Yes oriented to place and Yes oriented to time MOTOR EXAM: 5/5 motor strength present throughout, Pronator motor function not present, no tremor noted, no asterixis, Motor fasciculations not present, Normal motor muscle tone present throughout and Motor abnormalities not present OTHER: Left-sided facial droop. Data : 04/04/21 05:15 04/04/21 05:15 A&P Assessment and plan (1) Acute CVA (cerebrovascular accident): Acute CVA with left-sided facial weakness: CT head without contrast: Subacute infarct has developed since 03/19/2021 within the RIGHT bryant radiata. 2D echo: Normal left ventricular size and systolic function, no RWMA, EF 65%, normal RV size and systolic function, No significant valvular abnormality. Carotid Doppler:Bilateral ICA stenosis less than 50%. PT/OT Evalutaion Tele : No significant arrhthymia on Tele 2 Weeks Event Monitor as outpatient Speech and Swallow Evaluation Aspirin 81 mg po daily Plavix : 75 mg po daily Lipitor 40 mg po daily Status: Acute (2) Hypertension: Amlodipine 5 mg po daily Status: Acute (3) Type 2 diabetes mellitus: LDSSI FSG Hba1C: 6.6 Diabetic diet Status: Acute (4) Sinus bradycardia: Resolved Status: Acute (5) Urge incontinence of urine: Oxybutynin 5 mg po BID Status: Acute Additional A&P Information CODE STATUS: Full code DVT prophylaxis: On Lovenox Disposition: Home Attestations Medical Necessity Statement*: Patient needs to be in hospital for the management of Ac stroke. Coding Level of Care Code Acute [employer] for [employer] Diagnoses Acute CVA (cerebrovascular accident) I63.9 Hypertension I10 Type 2 diabetes mellitus E11.9 Sinus bradycardia R00.1 Urge incontinence of urine N39.41
[2021-04-04 12:14] LABS: Glucose Point of Care 218 mg/dL (70-110)
--- NOTE | 2021-04-04 12:29 | PC.CHAP ---
Pastoral Care Encounter/Spiritual Assessment Type of Contact [] Declined plycor operator visit [] Patient/Family/Request visit [] Outpatient visit [] Follow-up visit [] Physician referral [] Code/Alert [x] Routine visit [] Staff referral [] Actively dying [] Patient sleeping [] Family support [] [] Out of room [] Palliative care [] [x] Receiving care in room [] Pre-surgical visit [] Trauma [] Long length of stay [] ICU visit [] Other: Relational/Emotional Strength [] Patient feels connected with others/family/visitors/staff [] Distress [] Loneliness/isolation [] Abandonment Spirituality of Patient [] Person of Katie [] Attends Uatsdin of their Katie [] Believes in Prayer [] Reads Bible or Anabaptism materials [] There are Spiritual issues to be addressed Jewelry Engraver Interventions [] Prayer [] Active listening [] Non-anxious presence [] Spiritual/emotional support [] Crisis/trauma care [] Spiritual counseling [] Bereavement support [] Provided bereavement packet [] Provided Bible/devotional materials [] Provided toy/stuffed animal, coloring book to patient or family member [] Provided Communion [] Anointing/Bridgman [] Salvation [] Completed spiritual assessment [] Other: Impact on Illness or Injury [] Angry [] Fearful [] Anxious [] Often cries [] Exhaustion [] Unable to work [] Unable to attend jain [] Unable to walk/stand [] Unable to read [] Unable to drive [] Unable to eat/drink [] Unable to sleep [] Unable to be with family [] Patient intubated [] Other: Summary Time spent with patient
[2021-04-04] MEDS: enoxaparin 40 mg/0.4 mL Syringe SUBCUT (18:08)
[2021-04-04] MEDS: oxybutynin 5 mg Tablet PO (18:08)
[2021-04-04 18:19] LABS: Glucose Point of Care 156 mg/dL (70-110)
[2021-04-04] MEDS: atorvastatin 40 mg Tablet 20 MG PO (20:41)
[2021-04-04 21:10] LABS: Glucose Point of Care 109 mg/dL (70-110)
[2021-04-04] MEDS: latanoprost 0.005% Op Soln 2.5 mL Btl 1 DROP EYE-LEFT (21:18)
[2021-04-04] MEDS: cetylpyridinium Lozenge 1 EACH MUCOUS MEM (21:57)
[2021-04-05] VITALS: BP 134/85; PULSE 49; RESP 18; TEMP 36.7; O2SAT 100
[2021-04-05 01:33] VITALS: PULSE 57; O2SAT 99
[2021-04-05 04:00] VITALS: BP 135/78; PULSE 56; RESP 18; TEMP 36.6; O2SAT 100
[2021-04-05] MEDS: cetylpyridinium Lozenge 1 EACH MUCOUS MEM (04:33)
[2021-04-05 06:00] VITALS: PULSE 46
[2021-04-05 07:05] LABS: Glucose Point of Care 118 mg/dL (70-110)
[2021-04-05 08:00] VITALS: BP 144/85; PULSE 51; RESP 18; TEMP 36.4; O2SAT 99
[2021-04-05] MEDS: atorvastatin 40 mg Tablet PO (09:05)
[2021-04-05] MEDS: aspirin 81 mg Chew Tablet PO (09:05)
[2021-04-05] MEDS: oxybutynin 5 mg Tablet PO (09:05)
[2021-04-05] MEDS: amlodipine 5 mg Tablet PO (09:05)
[2021-04-05] MEDS: clopidogrel 75 mg Tablet PO (09:05)
[2021-04-05] MEDS: dorzolamide/timolol Op Soln 10 mL Btl 1 DROP EYE-LEFT (09:06)
[2021-04-05 09:10] LABS: Basophils % 0.5 %; Eosinophils # 0.3 10^3/uL (0.0-0.8); Eosinophils % 4.1 %; Hematocrit 54.5 % (42.0-52.0); Hemoglobin 16.9 g/dL (11.7-16.6); Lymphocytes # 2.1 10^3/uL (0.8-4.8); Lymphocytes % 28.3 %; Mean Corpuscular Hemoglobin 29.2 pg (28.0-34.0); Mean Corpuscular Volume 94.1 fL (80-94); Mean Platelet Volume 10.3 fL (7.4-10.4); Monocytes # 0.7 10^3/uL (0.2-0.9); Monocytes % 9.4 %; Neutrophils # 4.21 10^3/uL (1.8-7.7); Neutrophils % 57.6 %; Nucleated Red Blood Cells % 0 %; Platelet Count 219 10^3/cmm (130-400); Red Blood Count 5.79 10^6/uL (4.1-5.3); Red Cell Distribution Width 11.8 % (12.1-15.1); White Blood Count 7.3 10^3/uL (4.0-10.0)
[2021-04-05 09:40] LABS: Alanine Aminotransferase 12 U/L (0-41); Albumin Level 4.5 g/dL (3.5-5.2); Alkaline Phosphatase 80 IU/L (40-130); Aspartate Amino Transferase 15 U/L (0-40); Blood Urea Nitrogen 11 mg/dL (8-23); Calcium 9.2 mg/dL (8.5-10.5); Carbon Dioxide 29 mmol/L (22-29); Chloride 104 mmol/L (98-107); Globulin 3.2 g/dL (1.3-4.6); Glomerular Filtration Rate 72.6 mL/min (90-130); Glucose 114 mg/dL (65-115); Osmolality Calculated 290 mOsm/kg (285-295); Sodium 140 mmol/L (136-145); Total Bilirubin 0.6 mg/dL (0.15-1.2); Total Protein 7.7 g/dL (6.6-8.7)
--- NOTE | 2021-04-05 10:40 | PM.DCS ---
Discharge Providers Date of Admission: 04/03/21 15:14 Date of Discharge: April 05, 2021 Attending Provider at Admission: Yevgeniy Joyner MD Attending Provider at Discharge: Yevgeniy Joyner MD Primary Care Provider: Tonio Delatorre DO Diagnoses at Discharge Discharge Diagnosis (1) Acute CVA (cerebrovascular accident): Status: Resolved Permanent problem details: With residual left facial and left upper extremity weakness (2) Hypertension: Status: Chronic (3) Type 2 diabetes mellitus: Status: Chronic (4) Sinus bradycardia: Status: Acute (5) Urge incontinence of urine: Status: Chronic Reason for Visit Reason for Visit: TIA's, Here Recently Hospital Course Hospital Course Jerson Francis is a 70 year old male with past medical history of hypertension diabetes, came in today with chief complaint of acute onset of left-sided facial droop, as well as left-sided weakness, started, likely last night, last normal was unknown, not a TPA candidate.He was recently here in the ER on March 19 with similar complaints and was discharged from the ER, after a CT head without contrast was performed, and showed no acute intracranial pathology. He was continued on aspirin 81 mg p.o. daily, along with his other home medications. He was admitted for the management of acute CVA,CT head without contrast: Subacute infarct has developed since 03/19/2021 within the RIGHT bryant radiata.EKG:Sinus bradycardia,CBC CMP:Nomal , urinalysis is clean, U tox negative.2D echo: Normal left ventricular size and systolic function, no RWMA, EF 65%, normal RV size and systolic function,No significant valvular abnormality.Carotid Doppler:Bilateral ICA stenosis less than 50%. PT/OT Evalutaion: Was done: Home exercise education was provided. He has no difficulty with swallowing. Speech was improving.He was continued on aspirin 81 mg po daily as well as Plavix and statin was started. Telemetry monitoring had shown sinus bradycardia, which is asymptomatic.Patient is being discharged on 3 weeks event monitor.Patient responded well to the above medical management and is being discharged in stable condition.He will follow Dr. Pierre as an outpatient. Physical Exam Const: COMMON NORMALS: patient oriented x3 and alert ORIENTATION/CONSCIOUSNESS: Yes oriented to person, Yes oriented to place and Yes oriented to time HENMT: COMMON NORMALS: normocephalic and atraumatic HEAD & SCALP: normocephalic and atraumatic Resp: COMMON NORMALS: clear to auscultation bilaterally EFFORT & INSPECTION: Yes symmetric chest movement AUSCULTATION: clear to auscultation bilaterally Cardio: COMMON NORMALS: regular rate, regular rhythm, S1 normal heart sound present, S2 normal heart sound present, No gallops present (Cardio), No murmurs present (Cardio), No rub (Cardio) and Peripheral pulses 2+ throughout RATE: regular rate RHYTHM: regular rhythm HEART SOUNDS: S1 normal heart sound present and S2 normal heart sound present PERIPHERAL PULSES: Peripheral pulses 2+ throughout GI: COMMON NORMALS: Normal to inspection, nondistended, normoactive bowel sounds present, Soft to palpation, non-tender, No hepatosplenomegaly present and no masses AUSCULTATION: Yes normoactive bowel sounds PALPATION: Yes Soft to palpation and Yes No hepatosplenomegaly present RECTAL EXAM: Yes deferred Extremity: COMMON NORMALS: no clubbing, cyanosis or edema and no pedal edema Neuro: COMMON NORMALS: patient oriented x3, moves all extremities, no focal motor deficits and no sensory deficits noted SENSORIUM/ORIENTATION: Yes alert, Yes oriented to person, Yes oriented to place and Yes oriented to time MOTOR EXAM: 5/5 motor strength present throughout, no tremor noted, no asterixis, Motor fasciculations not present, Normal motor muscle tone present throughout and Motor abnormalities not present OTHER: Left-sided facial droop. Discharge Data Data Completed and Pending: Completed Studies During Hospitalization Category Date Time Status CT head wo con* [id number] Stat Cat Scan 04/03/21 10:34 Completed CV carotid duplex BI* [id number] Routine Ultrasound 04/03/21 15:19 Completed CV echo complete* [id number] Routine Ultrasound 04/04/21 06:00 Completed Pending at discharge Category Date Time Status CA cardiac event monitor Routine Exams 04/05/21 10:38 Ordered Complete Blood Co unt w/Auto AM LABS Lab 04/06/21 04:00 Ordered Comprehensive Met abolic Panel AM LA BS Lab 04/06/21 04:00 Ordered Labs from last 24 hours 04/05/21 04/05/21 04/05/21 08:47 08:47 06:10 WBC 7.3 Corrected WBC RBC 5.79 H Hgb 16.9 H Hct 54.5 H MCV 94.1 H MCH 29.2 MCHC 31.0 RDW 11.8 L Plt Count 219 MPV 10.3 Gran % Neut % (Auto) 57.6 Lymph % (Auto) 28.3 [place] % (Auto) 9.4 Eos % (Auto) 4.1 Baso % (Auto) 0.5 Neut # (Auto) 4.21 Lymph # (Auto) 2.1 [place] # (Auto) 0.7 Eos # (Auto) 0.3 Baso # (Auto) 0.0 Absolute Gran (aut o) Nucleated RBC % (a uto) 0 Nucleated RBCs # 0.0 Sodium 140 Potassium 4.0 Chloride 104 Carbon Dioxide 29 Anion Gap 11.0 BUN 11 Creatinine 1.2 GFR Calculation 72.6 L Glucose 114 POC Glucose 118 H Calculated Osmolal ity 290 Calcium 9.2 Total Bilirubin 0.6 AST 15 ALT 12 Alkaline Phosphata se 80 Total Protein 7.7 Albumin 4.5 Globulin 3.2 04/05/21 04/05/21 04/04/21 06:07 06:07 21:06 WBC Cancelled Corrected WBC Cancelled RBC Cancelled Hgb Cancelled Hct Cancelled MCV Cancelled MCH Cancelled MCHC Cancelled RDW Cancelled Plt Count Cancelled MPV Cancelled Gran % Cancelled Neut % (Auto) Cancelled Lymph % (Auto) Cancelled [place] % (Auto) Cancelled Eos % (Auto) Cancelled Baso % (Auto) Cancelled Neut # (Auto) Cancelled Lymph # (Auto) Cancelled [place] # (Auto) Cancelled Eos # (Auto) Cancelled Baso # (Auto) Cancelled Absolute Gran (aut o) Cancelled Nucleated RBC % (a uto) Cancelled Nucleated RBCs # Cancelled Sodium Cancelled Potassium Cancelled Chloride Cancelled Carbon Dioxide Cancelled Anion Gap Cancelled BUN Cancelled Creatinine Cancelled GFR Calculation Cancelled Glucose Cancelled POC Glucose 109 Calculated Osmolal ity Cancelled Calcium Cancelled Total Bilirubin Cancelled AST Cancelled ALT Cancelled Alkaline Phosphata se Cancelled Total Protein Cancelled Albumin Cancelled Globulin Cancelled 04/04/21 04/04/21 17:56 11:58 WBC Corrected WBC RBC Hgb Hct MCV MCH MCHC RDW Plt Count MPV Gran % Neut % (Auto) Lymph % (Auto) [place] % (Auto) Eos % (Auto) Baso % (Auto) Neut # (Auto) Lymph # (Auto) [place] # (Auto) Eos # (Auto) Baso # (Auto) Absolute Gran (aut o) Nucleated RBC % (a uto) Nucleated RBCs # Sodium Potassium Chloride Carbon Dioxide Anion Gap BUN Creatinine GFR Calculation Glucose POC Glucose 156 H 218 H Calculated Osmolal ity Calcium Total Bilirubin AST ALT Alkaline Phosphata se Total Protein Albumin Globulin Vitals: Last Vital Signs Temp 97.6 F 04/05/21 08:00 Pulse 51 L 04/05/21 08:00 Resp 18 04/05/21 08:00 BP 144/85 04/05/21 08:00 Pulse Ox 99 04/05/21 08:00 Discharge Plan Discharge Patient Disposition: Home Condition: Stable Prescriptions: New Plavix 75 mg tablet 75 mg PO DAILY Qty: 30 RF: 3 Lipitor 40 mg tablet 40 mg PO DAILY Qty: 30 RF: 3 Continued aspirin [Adult Aspirin Regimen] 81 mg tablet,delayed release (DR/EC) 81 mg PO DAILY RF: 0 brimonidine 0.1 % drops 1 drop ophthalmic (eye) BID RF: 0 latanoprost 0.005 % drops 1 drop ophthalmic (eye) BEDTIME RF: 0 metformin 500 mg tablet 500 mg PO BID RF: 0 dorzolamide-timolol 22.3-6.8 mg/mL drops 1 drp ophthalmic (eye) BID RF: 0 lisinopril 5 mg tablet 5 mg PO DAILY RF: 0 Discharge Orders: Discharge Order (Routine); Ordered 04/05/21 Ordered By: Yevgeniy Joyner Referrals: Haleigh Pierre MD [Physician] - 04/14/21 3:00 pm (APPOINTMENT WITH [facility]) Cassie Tamayo MD [Physician] - 04/20/21 1:30 pm Discharge Diet: Diabetic Discharge Activity: Resume usual activity Patient Instructions: Bradycardia, Atorvastatin (By mouth), Clopidogrel (By mouth), Ischemic Stroke (GEN), Self Care Measures After a Stroke (DC), Opioid Safety, Stroke Stoplight Activity Restrictions/Additional Instructions: APPOINTMENT FOR EVENT MONITOR [facility] ON APRIL 11 AT 1:00 Discharge Attestations Time Spent in Discharge Care*: less than 30 min Quality Metrics Clinical Quality Measures During this hospital stay, did patient experience: None Coding Level of Care Code Acute Chg FW DC note Exam Detailed Diagnoses Acute CVA (cerebrovascular accident) I63.9 Hypertension I10 Type 2 diabetes mellitus E11.9 Sinus bradycardia R00.1 Urge incontinence of urine N39.41
--- NOTE | 2021-04-05 12:50 | PC.NURSE ---
Patient given discharge instructions, all questions answered. Patient has follow up appointment for 04/11 for cardiac event monitor. IV catheter removed, tip intact. Patient discharged at this time in stable condition in the care of his .
[2021-04-05 12:52] VITALS: BP 144/85; PULSE 51; RESP 18; TEMP 36.4; O2SAT 99
== END 2021-04-05 12:52 | disposition home or self-care (01) ==
LOC: ER 14:57 → MEDSURG 16:26
PROVIDERS: Admitting Provider Internal Medicine; Emergency Provider Family Medicine; PCP Family Medicine; Visit Provider Internal Medicine
DX: I63.9 Cerebral infarction, unspecified (principal); I10 Essential (primary) hypertension; E11.9 Type 2 diabetes mellitus without complications; R00.1 Bradycardia, unspecified; N39.41 Urge incontinence
CPT/HCPCS: 36415; 36416; 70450; 80053; 80061; 80306; 81003; 82962; 83036; 83735; 84443; 85025; 85610; 85730; 92507; 92523; 92610; 93005; 93271; 93306; 93880; 96360; 96361; 96372; 97116; 97161; 99285; 99291; G0378; J1650; J1815

== ENCOUNTER → 2021-04-14 14:41 | Outpatient (BNVA) | payer MEDICARE, SELFPAY | PROVIDERS: PCP Family Medicine; Referring Provider Internal Medicine; Visit Provider Nurse Practitioner | DX: Z86.73 Personal history of transient ischemic attack (TIA), and cerebral infarction without residual deficits (principal); Z87.891 Personal history of nicotine dependence | CPT/HCPCS: 99204 ==

== ENCOUNTER 2021-08-10 12:31 | Inpatient (IN) | payer MEDICARE, SELFPAY ==
[2021-08-10 13:01] VITALS: BP 141/85; PULSE 66; RESP 20; TEMP 37.4; O2SAT 96; BMI 27.7
--- NOTE | 2021-08-10 13:33 | XR_ITS ---
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 Fracture dislocation of the DIP joint of the left second toe. This is associated with soft tissue antonia nges suggesting infection. No bone destruction or periosteal reaction to suggest osteomyelitis. Base of the distal phalanx of the second toe is fractured. XR/XR foot LT min 3V* [id number] IMPRESSION: Postsurgical change. Fracture dislocation of the DIP joint of the left second toe as above.
--- NOTE | 2021-08-10 13:36 | W.ED.EXTPRO ---
Documented by User: STEFANO Sanchez 08/10/21 17:03 HPI - Extremity Problem General: Chief complaint: Extremity Problem,Nontraumatic Stated complaint: LEFT TOE INJURY Time Seen by Provider: 08/10/21 13:14 Source: patient and family Mode of arrival: wheelchair Limitations: no limitations History of Present Illness: HPI Narrative: Patient is a 71-year-old male who presents to ED today for concerns of a left second toe infection and ulcer. Patient tells me he initially began noticing the ulcer 2 to 3 weeks ago. He states his has been trying to take care of it at home but has progressively worsened. He is now having swelling and redness throughout the entire digit and is noticing foul odor. Patient has had his first toe amputated 4 years ago in [place] secondary to a diabetic infection. Patient reportedly does not take his sugars often. He does state his last hemoglobin A1c was 6.0%. Other significant PMH includes HTN and hyperlipidemia. MD Complaint: extremity pain and extremity swelling Onset (ago): day(s) Location: left and toe Review of Systems Musc: Reports: extremity pain and extremity swelling Skin/Breast: Reports: new lesions (ulcer to L 4th toe) Neuro: Reports: sensory changes (chronic lower extremity diabetic neuropathy) [facility] ED PFSH: Medical History 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 Amputated toe Hyperlipidemia Hypertension Ischemic stroke Sinus bradycardia Type 2 diabetes mellitus Urge incontinence of urine Social History Smoking and tobacco status: former smoker Quit status (tobacco): has quit using tobacco Year quit tobacco: 1997 Alcohol intake: never History of recent travel: No Physical Exam Const: COMMON NORMALS: no acute distress, average body habitus, patient oriented x3, no limitations, healthy appearing, alert and well nourished GENERAL APPEARANCE: cooperative ORIENTATION/CONSCIOUSNESS: Yes awake, Yes oriented to person, Yes oriented to place and Yes oriented to time HENMT: COMMON NORMALS: normocephalic and atraumatic HEAD & SCALP: normocephalic, atraumatic and other (facial deficits secondary to previous CVA) Resp: COMMON NORMALS: normal respiratory effort and clear to auscultation bilaterally AUSCULTATION: clear to auscultation bilaterally Cardio: COMMON NORMALS: regular rate and regular rhythm RATE: regular rate RHYTHM: regular rhythm Extremity: OTHER: patient has diffuse swelling/redness to entire L 2nd digit with full thickness ulcer with exposed bone to distal tip; there is foul odor present; he has mild erythema to the dorsal base of 3rd digit; dorsal foot is mildly swollen and warm to touch Neuro: COMMON NORMALS: patient oriented x3 SENSORIUM/ORIENTATION: Yes alert, Yes oriented to person, Yes oriented to place and Yes oriented to time OTHER: chronic facial and L sided deficits from previous CVA Skin: NARRATIVE SKIN EXAM: see extremity assessment; otherwise normal skin findings Course Consultations: Consultation #1: Dr. Moreno-recommend admit to hospitalist and plan will be for OR tomorrow Consultation #2: Dr. Bardales-accepts admission; recommend EKG for surgical clearance, add PCR COVID for clearance Vital Signs: Vital signs: Vital Signs Temperature 98.8 F 08/10/21 17:17 Pulse Rate 64 08/10/21 17:17 Respiratory Rate 16 08/10/21 17:17 Blood Pressure 130/75 08/10/21 17:17 Pulse Oximetry 96 08/10/21 17:17 MDM - Extremity (Nontraumatic) MDM Narrative: Medical decision making narrative: Patient is a nice 71-year-old male here for concerns of a left second toe diabetic wound/infection. On exam patient has extensive swelling, erythema, and foul odor to the toe. He has a full-thickness distal ulcer with exposed bone. There is gas formation on his XR indicative of infection. He has a fracture dislocation at his DIP joint. I have spoken to Dr. Moreno who recommends admit to the hospitalist and he will consult with plan for OR tomorrow. Lab Data: Attestation: I reviewed the patient's lab results. Labs: Lab Results 08/10/21 08/10/21 08/10/21 Range/Units 13:49 13:49 14:13 WBC 11.0 H (4.0-10.0) 10^3/ uL RBC 4.58 (4.1-5.3) 10^6/u L Hgb 13.4 (11.7-16.6) g/dL Hct 43.1 (42.0-52.0) % MCV 94.1 H (80-94) fl MCH 29.3 (28.0-34.0) pg MCHC 31.1 (30.0-36.0) g/dL RDW 11.7 L (12.1-15.1) % Plt Count 255 (130-400) 10^3/c mm MPV 10.6 H (7.4-10.4) fL Neut % (Auto) 63.3 % Lymph % (Auto) 18.5 % [place] % (Auto) 14.9 % Eos % (Auto) 2.5 % Baso % (Auto) 0.5 % Neut # (Auto) 6.94 (1.8-7.7) 10^3/u L Lymph # (Auto) 2.0 (0.8-4.8) 10^3/u L [place] # (Auto) 1.6 H (0.2-0.9) 10^3/u L Eos # (Auto) 0.3 (0.0-0.8) 10^3/u L Baso # (Auto) 0.1 (0.0-0.1) 10^3/u L Nucleated RBC % (a uto) 0 % Nucleated RBCs # 0.0 /100WBC Sodium Cancelled Potassium Cancelled Chloride Cancelled Carbon Dioxide Cancelled Anion Gap Cancelled BUN Cancelled Creatinine Cancelled GFR Calculation Cancelled Glucose Cancelled Calculated Osmolal ity Cancelled Lactic Acid 1.1 (0.5-2.2) mmol/L Calcium Cancelled Total Bilirubin Cancelled AST Cancelled ALT Cancelled Alkaline Phosphata se Cancelled C-Reactive Protein Cancelled NT-Pro-B Natriuret Pep (0-125) pg/mL Total Protein Cancelled Albumin Cancelled Globulin Cancelled 08/10/21 08/10/21 Range/Units 14:13 14:13 WBC (4.0-10.0) 10^3/ uL RBC (4.1-5.3) 10^6/u L Hgb (11.7-16.6) g/dL Hct (42.0-52.0) % MCV (80-94) fl MCH (28.0-34.0) pg MCHC (30.0-36.0) g/dL RDW (12.1-15.1) % Plt Count (130-400) 10^3/c mm MPV (7.4-10.4) fL Neut % (Auto) % Lymph % (Auto) % [place] % (Auto) % Eos % (Auto) % Baso % (Auto) % Neut # (Auto) (1.8-7.7) 10^3/u L Lymph # (Auto) (0.8-4.8) 10^3/u L [place] # (Auto) (0.2-0.9) 10^3/u L Eos # (Auto) (0.0-0.8) 10^3/u L Baso # (Auto) (0.0-0.1) 10^3/u L Nucleated RBC % (a uto) % Nucleated RBCs # /100WBC Sodium 135 L Potassium 4.4 Chloride 97 L Carbon Dioxide 26 Anion Gap 16.4 BUN 11 Creatinine 1.1 GFR Calculation 80.1 L Glucose 102 Calculated Osmolal ity 280 L Lactic Acid (0.5-2.2) mmol/L Calcium 9.0 Total Bilirubin 0.4 AST 14 ALT 12 Alkaline Phosphata se 72 C-Reactive Protein 66.5 H NT-Pro-B Natriuret Pep 109 (0-125) pg/mL Total Protein 7.8 Albumin 3.8 Globulin 4.0 Imaging Data^: XR L foot: Radiologist's impression: [address] [id number] XRay Report Signed Patient: Jerson Francis Unit #: [id number] : 1950 Age/Sex: 71 / M ADM Date: 08/10/21 Loc: ER Room/Bed: Attending Dr: Ordering Provider/Ordering MD: Jessica Owusu Date of Service: 08/10/21 Procedure(s): XR foot LT min 3V* [id number] Accession Number(s): [id number] Report Number: [id number] WS: [id number] XR foot LT min 3V* [id number] REASON FOR EXAM: infection FINDINGS: 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 Fracture dislocation of the DIP joint of the left second toe. This is associated with soft tissue changes suggesting infection. No bone destruction or periosteal reaction to suggest osteomyelitis. Base of the distal phalanx of the second toe is fractured. XR/XR foot LT min 3V* [id number] IMPRESSION: Postsurgical change. Fracture dislocation of the DIP joint of the left second toe as above. Dictated By: Ralf Bello Jr, MD Signed By: Ralf Bello Jr, MD Signed Date/Time: 08/10/211420 DD/ 141 Discharge Plan Discharge Patient Disposition: Admitted As Inpatient Clinical Impression: Diabetic toe ulcer Qualifiers: Diabetes mellitus type: type 2 Laterality: left Non-pressure ulcer stage: with necrosis of bone Qualified Code(s): E11.621 - Type 2 diabetes mellitus with foot ulcer Condition: Stable Coding Level of Care Code ED Youth Development Specialist for Chg Fwd Exam Expanded Problem Focused Documented by User: Kehinde Awad MD 08/10/21 18:01 HPI - Extremity Problem General: Chief complaint: Extremity Problem,Nontraumatic Stated complaint: LEFT TOE INJURY Time Seen by Provider: 08/10/21 13:14 PFS ED PFSH: Medical History 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 Amputated toe Hyperlipidemia Hypertension Ischemic stroke Sinus bradycardia Type 2 diabetes mellitus Urge incontinence of urine Social History Smoking and tobacco status: former smoker Quit status (tobacco): has quit using tobacco Year quit tobacco: 1997 Alcohol intake: never History of recent travel: No Course Vital Signs: Vital signs: Vital Signs Temperature 98.8 F 08/10/21 17:17 Pulse Rate 64 08/10/21 17:17 Respiratory Rate 16 08/10/21 17:17 Blood Pressure 130/75 08/10/21 17:17 Pulse Oximetry 96 08/10/21 17:17 MDM - Extremity (Nontraumatic) Lab Data: Labs: Lab Results 08/10/21 08/10/21 08/10/21 Range/Units 13:49 13:49 14:13 WBC 11.0 H (4.0-10.0) 10^3/ uL RBC 4.58 (4.1-5.3) 10^6/u L Hgb 13.4 (11.7-16.6) g/dL Hct 43.1 (42.0-52.0) % MCV 94.1 H (80-94) fl MCH 29.3 (28.0-34.0) pg MCHC 31.1 (30.0-36.0) g/dL RDW 11.7 L (12.1-15.1) % Plt Count 255 (130-400) 10^3/c mm MPV 10.6 H (7.4-10.4) fL Neut % (Auto) 63.3 % Lymph % (Auto) 18.5 % [place] % (Auto) 14.9 % Eos % (Auto) 2.5 % Baso % (Auto) 0.5 % Neut # (Auto) 6.94 (1.8-7.7) 10^3/u L Lymph # (Auto) 2.0 (0.8-4.8) 10^3/u L [place] # (Auto) 1.6 H (0.2-0.9) 10^3/u L Eos # (Auto) 0.3 (0.0-0.8) 10^3/u L Baso # (Auto) 0.1 (0.0-0.1) 10^3/u L Nucleated RBC % (a uto) 0 % Nucleated RBCs # 0.0 /100WBC Sodium Cancelled Potassium Cancelled Chloride Cancelled Carbon Dioxide Cancelled Anion Gap Cancelled BUN Cancelled Creatinine Cancelled GFR Calculation Cancelled Glucose Cancelled Calculated Osmolal ity Cancelled Lactic Acid 1.1 (0.5-2.2) mmol/L Calcium Cancelled Total Bilirubin Cancelled AST Cancelled ALT Cancelled Alkaline Phosphata se Cancelled C-Reactive Protein Cancelled NT-Pro-B Natriuret Pep (0-125) pg/mL Total Protein Cancelled Albumin Cancelled Globulin Cancelled 08/10/21 08/10/21 Range/Units 14:13 14:13 WBC (4.0-10.0) 10^3/ uL RBC (4.1-5.3) 10^6/u L Hgb (11.7-16.6) g/dL Hct (42.0-52.0) % MCV (80-94) fl MCH (28.0-34.0) pg MCHC (30.0-36.0) g/dL RDW (12.1-15.1) % Plt Count (130-400) 10^3/c mm MPV (7.4-10.4) fL Neut % (Auto) % Lymph % (Auto) % [place] % (Auto) % Eos % (Auto) % Baso % (Auto) % Neut # (Auto) (1.8-7.7) 10^3/u L Lymph # (Auto) (0.8-4.8) 10^3/u L [place] # (Auto) (0.2-0.9) 10^3/u L Eos # (Auto) (0.0-0.8) 10^3/u L Baso # (Auto) (0.0-0.1) 10^3/u L Nucleated RBC % (a uto) % Nucleated RBCs # /100WBC Sodium 135 L Potassium 4.4 Chloride 97 L Carbon Dioxide 26 Anion Gap 16.4 BUN 11 Creatinine 1.1 GFR Calculation 80.1 L Glucose 102 Calculated Osmolal ity 280 L Lactic Acid (0.5-2.2) mmol/L Calcium 9.0 Total Bilirubin 0.4 AST 14 ALT 12 Alkaline Phosphata se 72 C-Reactive Protein 66.5 H NT-Pro-B Natriuret Pep 109 (0-125) pg/mL Total Protein 7.8 Albumin 3.8 Globulin 4.0 Discharge Plan Discharge Patient Disposition: Admitted As Inpatient Clinical Impression: Diabetic toe ulcer Qualifiers: Diabetes mellitus type: type 2 Laterality: left Non-pressure ulcer stage: with necrosis of bone Qualified Code(s): E11.621 - Type 2 diabetes mellitus with foot ulcer Condition: Stable Coding Level of Care Code ED Youth Development Specialist for [facility] Fwd Exam Expanded Problem Focused
[2021-08-10 13:58] LABS: Basophils # 0.1 10^3/uL (0.0-0.1); Basophils % 0.5 %; Eosinophils # 0.3 10^3/uL (0.0-0.8); Eosinophils % 2.5 %; Hematocrit 43.1 % (42.0-52.0); Hemoglobin 13.4 g/dL (11.7-16.6); Lymphocytes % 18.5 %; Mean Corpuscular HGB Conc 31.1 g/dL (30.0-36.0); Mean Corpuscular Hemoglobin 29.3 pg (28.0-34.0); Mean Corpuscular Volume 94.1 fl (80-94); Mean Platelet Volume 10.6 fL (7.4-10.4); Monocytes # 1.6 10^3/uL (0.2-0.9); Monocytes % 14.9 %; Neutrophils # 6.94 10^3/uL (1.8-7.7); Neutrophils % 63.3 %; Nucleated Red Blood Cells % 0 %; Platelet Count 255 10^3/cmm (130-400); Red Blood Count 4.58 10^6/uL (4.1-5.3); Red Cell Distribution Width 11.7 % (12.1-15.1)
[2021-08-10 14:00] VITALS: BP 122/80; PULSE 62; RESP 16; TEMP 37.1; O2SAT 96
[2021-08-10 14:02] VITALS: PULSE 62
[2021-08-10] MEDS: vancomycin 1,000 MG in sodium chloride 0.9% 250 ML 250 MG IV (14:30)
[2021-08-10 14:43] LABS: Alanine Aminotransferase 12 U/L (0-41); Albumin Level 3.8 g/dL (3.5-5.2); Alkaline Phosphatase 72 IU/L (40-130); Anion Gap 16.4 (5-19); Aspartate Amino Transferase 14 U/L (0-40); Blood Urea Nitrogen 11 mg/dL (8-23); C Reactive Protein 66.5 mg/L (0.0-4.9); Carbon Dioxide 26 mmol/L (22-29); Chloride 97 mmol/L (98-107); Glomerular Filtration Rate 80.1 mL/min (90-130); Glucose 102 mg/dL (65-115); Osmolality Calculated 280 mOsm/kg (285-295); Potassium 4.4 mmol/L (3.5-5.1); Sodium 135 mmol/L (136-145); Total Bilirubin 0.4 mg/dL (0.15-1.2); Total Protein 7.8 g/dL (6.6-8.7)
[2021-08-10 14:44] LABS: Lactic Sepsis W/Reflex 1.1 mmol/L (0.5-2.2)
[2021-08-10 17:17] VITALS: BP 130/75; PULSE 64; RESP 16; TEMP 37.1; O2SAT 96
[2021-08-10 17:39] LABS: NT Pro B Type Natriuretic Pept 109 pg/mL (0-125)
--- NOTE | 2021-08-10 18:17 | P.HP_ITS ---
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 He states the swelling started after initial red spot he noticed after weed eating and his diabetic shoes, he peeled off the superficial layer. He was seen in urgent care as he states his podiatry Dr. he sees in [place] has been on vacation. States subsequently the red spot reappeared, associated with swelling. He was treating the wound with a natural healer with Vitor which his continued at home. He states subsequently he had continued foul- smelling drainage from the toe since May. He states he did low-grade temp of 100.5 yesterday, today his temperature returned to normal. He otherwise denies headache, muscle aches, chills, nausea, vomiting, diarrhea. He has not been taking any antibiotics recently. His A1c is reported to be 5.9. He is noted afebrile in ER, without tachycardia or tachypnea, with mild leukocytosis of 11,000. Left foot x-ray shows fracture dislocation of the DIP joint of the left second toe. Discussing results with him he recalls that he had recently accidentally hit his foot which he says sometimes happens due to not realizing he is not lifting his foot high enough due to persistent left-sided weakness following his stroke. He is not vaccinated for COVID-19. She states he does not believe in the vaccination, he states he knows who is behind the spread of everything - it is the bush, through [employer]. He then goes on to explain that COVID-19 and delta are codes for the new world order. He states that he barely goes anywhere and always keeps his distance. He states he is not worried if he gets the infection and God calls on him. But he also states he and his took precautions and have obtained and taken the forbidden medication - hydroxychloroquine. With regards to CODE STATUS he states he would want to receive CPR in case of cardiopulmonary arrest. He states that those who do not want to go on living are misled. He wants to so that he can be one of the [id number] chosen ones to go to [facility] called by [facility]. Confirming with him, he is not Worship, and is okay to accept blood products if needed. Review of Systems Const: Reports: fever(s); Denies: chills, body aches or malaise Eyes: Denies: change in vision or eye redness ENMT: Denies: throat pain, oral sores or ear or mastoid pain Card: Denies: chest pain, edema, pre-syncope or dyspnea on exertion Resp: Denies: dyspnea, productive cough, change in phlegm color or hemoptysis GI: Denies: abdominal pain, nausea, vomiting, diarrhea, constipation, hematochezia or melena : Denies: flank pain, difficulty urinating, urinary frequency or hematuria Musc: Reports: other (Left second toe swelling); Denies: back pain, joint swelling or joint redness Skin/Breast: Reports: erythema (Left second toe), non-healing lesions and other (Foul-smelling drainage from left second toe); Denies: rash or sores Neuro: Reports: weakness in extremities (Chronic left-sided weakness and facial droop following past CVA); Denies: headache(s), numbness in extremities, dizziness, confusion or seizure-like activity Endo: Denies: polyuria or polydipsia Isac/Lymph: Denies: easy bleeding or purpura All/Imm: Denies: urticaria, throat swelling or tongue swelling Medications/Allergies Home Medications Medication Instructions Recorded Confirmed Last Taken Type aspirin 81 mg tablet,delayed 81 mg PO DAILY 01/15/20 08/10/21 08/10/21 History release brimonidine 0.1 % eye drops 1 drop OPHTHALMIC (EYE) BID ml 01/15/20 08/10/21 08/09/21 History latanoprost 0.005 % eye drops 1 drop OPHTHALMIC (EYE) BEDTIME 01/15/20 08/10/21 08/10/21 History dorzolamide-timolol 1 drp OPHTHALMIC (EYE) BID 04/08/10/21 08/09/21 History lisinopril 5 mg PO DAILY 03/19/21 08/10/21 08/10/21 History metformin 500 mg PO BID 03/19/21 08/10/21 08/09/21 History atorvastatin [Lipitor] 40 mg PO DAILY #30 tab 04/05/21 08/10/21 Unknown Rx psyllium husk (with sugar) 3.4 1 tbsp PO DAILY #822 g 04/17/21 08/10/21 Unknown Rx gram/7 gram oral powder brimonidine [Alphagan P] 1 drp OPHTHALMIC (EYE) BID 08/10/21 08/10/21 08/09/21 History cholecalciferol (vitamin D3) 25 mcg PO DAILY 08/10/21 08/10/21 08/09/21 History [Vitamin D3] chromium 100 mcg PO DAILY 08/10/21 08/10/21 08/09/21 History selenium 100 mcg PO DAILY 08/10/21 08/10/21 08/09/21 History vitamins A,C,B-izds-fgnvbn 2 tab PO BID 08/10/21 08/10/21 08/09/21 History [PreserVision AREDS] zinc 50 mg PO DAILY 08/10/21 08/10/21 08/09/21 History Allergies Allergy/AdvReac Type Severity Reaction Status Date / Time Penicillins Allergy Mild ALGY-Rash Verified 08/10/21 11:46 PFSH Acute PFSH: Medical History (Updated 08/10/21 @ 19:26 by Serafin Bardales MD) 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 Amputated toe Blind right eye Cataract Glaucoma Hyperlipidemia Hypertension Ischemic stroke Sinus bradycardia Type 2 diabetes mellitus Urge incontinence of urine Surgical History H/O chest tube placement H/O hernia repair History of amputation of great toe Family History (Updated 08/10/21 @ 18:25 by Serafin Bardales MD) Father Glaucoma Social History Smoking and tobacco status: former smoker Quit status (tobacco): has quit using tobacco Year quit tobacco: 1997 Alcohol intake: never History of recent travel: No Vitals/I&O/Wt Last Vital Signs Temp 98.8 F 08/10/21 17:17 Pulse 64 08/10/21 17:17 Resp 16 08/10/21 17:17 BP 130/75 08/10/21 17:17 Pulse Ox 96 08/10/21 17:17 08/10/21 08/10/21 08/10/21 06:59 14:59 22:59 Intake Total 350 / 350 Balance 350 / 350 Weight last 48 hrs Weight 90.265 kg Physical Exam Const: COMMON NORMALS: no acute distress, patient oriented x3 and alert GENERAL APPEARANCE: frail appearing NUTRITIONAL APPEARANCE: overweight ORIENTATION/CONSCIOUSNESS: Yes awake HENMT: COMMON NORMALS: oropharynx normal Neck/C-Spine: COMMON NORMALS: no JVD Resp: COMMON NORMALS: normal respiratory effort and clear to auscultation bilaterally AUSCULTATION: clear to auscultation bilaterally Cardio: COMMON NORMALS: no JVD, regular rhythm, S1 normal heart sound present, S2 normal heart sound present and No murmurs present (Cardio) RHYTHM: regular rhythm HEART SOUNDS: S1 normal heart sound present and S2 normal heart sound present GI: COMMON NORMALS: Normal to inspection, nondistended, normoactive bowel sounds present, Soft to palpation and non-tender PALPATION: Yes Soft to palpation Extremity: COMMON NORMALS: no joint enlargement and no pedal edema LEFT LOWER EXTREMITY: Yes foot & digits (2nd L toe swelling, redness, min ext of redness to dist foot. Swelling of f) Neuro: COMMON NORMALS: patient oriented x3 and moves all extremities Skin: COMMON NORMALS: no rashes or lesions noted GENERAL SKIN EXAM: no rashes or lesions noted Data : 08/10/21 13:49 08/10/21 14:13 Micro: Microbiology 08/10/21 14:15 Blood Culture - Preliminary Blood SPECIMEN COLLECTED 08/10/21 14:13 Blood Culture - Preliminary Blood SPECIMEN COLLECTED A&P Assessment and plan (1) Toe infection: Nonhealing wound, swelling, erythema, foul-smelling drainage from second left toe. Noted pathological fracture. Underlying diabetes. Prior need for infection due to gangrene of great toe of the left foot. IV antibiotic coverage. Reports some low-grade fever at home yesterday. At the moment no sign of sepsis. Monitor. Will attempt to collect culture. Appreciate podiatry recommendations. BNP, EKG, NPO after midnight in anticipation of possible surgical intervention. He is looking forward to discussing with podiatry. Status: Acute (2) Pathological fracture of toe: Second toe pathological fracture. Elevated CRP. Possible osteomyelitis. Discussed with him. 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 Reports hitting his left foot due to not lifting it high enough in the air due to the residual symptoms following the CVA. Consider additional PT following definitive treatment of the left second toe infection. Status: Acute Additional A&P Information Reports chronic pain, swelling of the left lower leg. Will assess duplex ultrasound. Attestations Medical Necessity Statement*: Admission of over 2 midnights is going to be needed for assessment management of nonresolving infection of left second toe with pathological fracture, possible osteomyelitis in a gentleman with underlying diabetes. 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
[2021-08-10 18:26] VITALS: BP 124/76; PULSE 60; RESP 16; TEMP 36.9; O2SAT 99
--- NOTE | 2021-08-10 18:28 | PC.NURSE ---
Left toe/foot area wrapped with kerlex and leeanne.
[2021-08-10 19:36] VITALS: BP 118/71; PULSE 60; RESP 16; TEMP 37.2; O2SAT 97
--- NOTE | 2021-08-10 20:20 | PM.CONSULT ---
Providers/Reason For Consult Consulting Physician/Specialty*: Eugenio Moreno D.P.M. Reason for Consult*: Gas gangrene Attending Physician: Serafin Bardales Primary Care Provider: Tonio Delatorre DO History of Present Illness History of Present Illness Jerson Francis is a 71 year old male admitted to the hospital service for gas gangrene of the left second toe. He states that he had a wound that has been present for several weeks, his has been applying hydrogen peroxide and has been trimming off tissue. They noticed foul-smelling odor, increased swelling, redness and warmth of the left foot and presented to urgent care who directed him to the emergency department. Patient admitted on empiric IV antibiotics, x-ray shows soft tissue emphysema and pathologic fracture of the distal phalanx left second toe. Also history of left hallux amputation. Review of Systems General: Reports: 10 or more systems reviewed and unremarkable except in HPI and below Const: Denies: fever(s) or chills Card: Denies: chest pain or palpitations Resp: Denies: productive cough GI: Denies: abdominal pain, nausea or vomiting : Denies: flank pain Musc: Reports: extremity swelling, joint pain, joint stiffness, limited range of motion and deformity Skin/Breast: Reports: skin swelling, sores, nail changes and change in hair; Denies: rash or skin pain Neuro: Reports: numbness in extremities, sensory changes and difficulty walking Psych: Denies: suicidal ideation Isac/Lymph: Denies: easy bruising Meds/Allergies Home Medications and Allergies Home Medications Medication Instructions Recorded Confirmed Last Taken Type aspirin 81 mg tablet,delayed 81 mg PO DAILY 01/15/20 08/10/21 08/10/21 History release brimonidine 0.1 % eye drops 1 drop OPHTHALMIC (EYE) BID ml 01/15/20 08/10/21 08/09/21 History latanoprost 0.005 % eye drops 1 drop OPHTHALMIC (EYE) BEDTIME 01/15/20 08/10/21 08/10/21 History dorzolamide-timolol 1 drp OPHTHALMIC (EYE) BID 03/19/21 08/10/21 08/09/21 History lisinopril 5 mg PO DAILY 03/19/21 08/10/21 08/10/21 History metformin 500 mg PO BID 03/19/21 08/10/21 08/09/21 History atorvastatin [Lipitor] 40 mg PO DAILY #30 tab 04/05/21 08/10/21 Unknown Rx psyllium husk (with sugar) 3.4 1 tbsp PO DAILY #822 g 04/17/21 08/10/21 Unknown Rx gram/7 gram oral powder brimonidine [Alphagan P] 1 drp OPHTHALMIC (EYE) BID 08/10/21 08/10/21 08/09/21 History cholecalciferol (vitamin D3) 25 mcg PO DAILY 08/10/21 08/10/21 08/09/21 History [Vitamin D3] chromium 100 mcg PO DAILY 08/10/21 08/10/21 08/09/21 History selenium 100 mcg PO DAILY 08/10/21 08/10/21 08/09/21 History vitamins A,C,Z-cuhq-ozxtkq 2 tab PO BID 08/10/21 08/10/21 08/09/21 History [PreserVision AREDS] zinc 50 mg PO DAILY 08/10/21 08/10/21 08/09/21 History Allergies Allergy/AdvReac Type Severity Reaction Status Date / Time Penicillins Allergy Mild ALGY-Rash Verified 08/10/21 11:46 PFSH Acute PFSH: Medical History (Updated 08/10/21 @ 20:44 by Eugenio Moreno DPM) 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 Amputated toe Blind right eye Cataract Glaucoma Hyperlipidemia Hypertension Ischemic stroke Sinus bradycardia Type 2 diabetes mellitus Urge incontinence of urine Surgical History H/O chest tube placement H/O hernia repair History of amputation of great toe Family History (Updated 08/10/21 @ 18:25 by Serafin Bardales MD) Father Glaucoma Social History Smoking and tobacco status: former smoker Quit status (tobacco): has quit using tobacco Year quit tobacco: 1997 Alcohol intake: never History of recent travel: No Vitals/I&O/Wt Last Vital Signs Temp 98.9 F 08/10/21 19:36 Pulse 60 08/10/21 19:36 Resp 16 08/10/21 19:36 BP 118/71 08/10/21 19:36 Pulse Ox 97 08/10/21 19:36 08/10/21 08/10/21 08/10/21 06:59 14:59 22:59 Intake Total 350 / 350 Balance 350 / 350 Weight last 48 hrs Weight 199 lb Physical Exam Narrative: EXAM NARRATIVE: GENERAL: Patient is alert and oriented ?3 and in no acute distress. The following is a focused bilateral lower extremity exam. VASCULAR: Dorsalis pedis palpable +2, posterior tibial arteries palpable +2. Capillary refill time less than 3 seconds to the distal hallux to the right foot and third distal digit on the left. Calf is supple and nontender proximally and distally. Decreased pedal hair growth bilaterally. Focal edema to the left second toe. NEUROLOGICAL: Protective sensation intact 0/10 sites, tested with [place] monofilament to bilateral feet. DERMATOLOGICAL: Full-thickness wound with exposed bone and bone necrosis distal phalanx of the left second toe. Dystrophic toenails 2 through 5 of the left and 1 through 5 on the right with thickening and discoloration. No other wounds present. No proximal lymphangitic streaking. MUSCULOSKELETAL: Status post left hallux amputation. Muscle strength 5 out of 5 in all 3 cardinal planes to the bilateral foot and ankle. No pain with posterior calf squeeze bilaterally. CARDIOVASCULAR: S1, S2, normal rate, normal rhythm. Dorsalis pedis and posterior tibial arteries palpable. LUNGS: Clear to auscltation, no use of acessory muscles, no crackles or wheezes. Data Micro: Micro: Microbiology 08/10/21 14:15 Blood Culture - Pr eliminary Blood SPECIMEN [facility] 08/10/21 14:13 Blood Culture - Pr eliminary Blood SPECIMEN [facility], [place], operated by [facility] [place], [place] [address]TZfi ReportSigned Patient: Dottie Francis #: [id number]: 1Acct#:[id number]/Sex: 71 / MADM Date: 08/10/21Loc: ERRoom/Bed:Attending Dr: Ordering Provider/Ordering MD: Jessica Owusu Date of Service: 08/10/21 Procedure(s): XR foot LT min 3V* [id number] Accession Number(s): [id number] Report Number: [id number] WS: [id number] XR foot LT min 3V* [id number] REASON FOR EXAM: infection FINDINGS: 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 Fracture dislocation of the DIP joint of the left second toe. This is associated with soft tissue changes suggesting infection. No bone destruction or periosteal reaction to suggest osteomyelitis. Base of the distal phalanx of the second toe is fractured. XR/XR foot LT min 3V* [id number] IMPRESSION: Postsurgical change. Fracture dislocation of the DIP joint of the left second toe as above. Dictated By:Ralf Bello Jr MDSigned By:Ralf Bello Jr MDSigned Date/Time:08/10/21 1421DD/ 1416 A&P Assessment and plan (1) Diabetic peripheral neuropathy associated with type 2 diabetes mellitus: Status: Acute (2) Gangrene of toe of left foot: Status: Acute (3) Soft tissue emphysema: Status: Acute (4) Osteomyelitis of toe of left foot: Status: Acute 71-year-old male with gas gangrene of the left second toe admitted for surgical intervention and empiric IV antibiotics initially. -N.p.o. at midnight -Covid screening pending -Discussed several options with the patient, first option is a surgical debridement with bone biopsy, plans for PICC line and wound care clinic in efforts to save the toe versus amputation of the left second toe. After discussing risks and benefits of each patient's preference is to undergo amputation of the left second toe in efforts to be more curative to potentially prevent ascending infection. -Lovenox dose this evening, hold a.m. Lovenox. -Bedside debridement down to and including bone which showed bone necrosis was of poor density and dark cyr at the distal phalanx left second toe patient tolerated debridement well secondary to neuropathy no anesthesia required hemostasis via manual pressure with dressing Betadine wet-to-dry. -Plan for left second toe amputation tomorrow morning 7 AM. Consult Attestations Medical Necessity Statement: Gangrene left second toe Procedures Procedure Narrative Left second toe excisional debridement down to and including bone that was devitalized, performed sharply with a dermal curette, hemostasis via manual pressure no anesthesia required secondary to neuropathy Betadine wet-to-dry dressing. Purpose of bedside debridement was to expose gas organisms due to soft tissue of edema being appreciated on left foot x-ray. 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
[2021-08-10 20:43] VITALS: BMI 27.7
--- NOTE | 2021-08-10 22:49 | PC.PHAR ---
Vancomycin is dosed at 1000mg IVPB every 12 hours to produce a predicted trough level of 15.89 (population based pharmacokinetic analysis). A trough level has been ordered from the lab to be obtained before the fourth dose to confirm and adjust if needed.
[2021-08-10] MEDS: ciprofloxacin 400 MG/200 ML PREMIX 200 MG IV (22:57)
[2021-08-10] MEDS: heparin 5,000 unit/mL INJ 1 mL 5000 UNIT SUBCUT (22:58)
[2021-08-10] MEDS: latanoprost 0.005% Op Soln 2.5 mL Btl 1 DROP EYE-LEFT (23:04)
[2021-08-11] VITALS (13 sets, daily range): BP systolic 112–135; BP diastolic 65–81; PULSE 52–67; RESP 12–20; TEMP 36.3–37.1; O2SAT 91–100
[2021-08-11] MEDS: vancomycin 1,000 MG in sodium chloride 0.9% 250 ML 250 MG IV (03:06)
[2021-08-11 05:18] LABS: Basophils % 0.5 %; Eosinophils # 0.3 10^3/uL (0.0-0.8); Eosinophils % 4.3 %; Hematocrit 39.9 % (42.0-52.0); Hemoglobin 12.5 g/dL (11.7-16.6); Lymphocytes # 1.9 10^3/uL (0.8-4.8); Lymphocytes % 25.2 %; Mean Corpuscular HGB Conc 31.3 g/dL (30.0-36.0); Mean Corpuscular Hemoglobin 29.4 pg (28.0-34.0); Mean Corpuscular Volume 93.9 fl (80-94); Mean Platelet Volume 10.3 fL (7.4-10.4); Monocytes # 1.5 10^3/uL (0.2-0.9); Monocytes % 19.6 %; Neutrophils # 3.81 10^3/uL (1.8-7.7); Neutrophils % 50.1 %; Nucleated Red Blood Cells % 0 %; Platelet Count 266 10^3/cmm (130-400); Red Blood Count 4.25 10^6/uL (4.1-5.3); Red Cell Distribution Width 11.6 % (12.1-15.1); White Blood Count 7.6 10^3/uL (4.0-10.0)
[2021-08-11 05:38] LABS: Alanine Aminotransferase 12 U/L (0-41); Albumin Level 3.3 g/dL (3.5-5.2); Alkaline Phosphatase 64 IU/L (40-130); Aspartate Amino Transferase 14 U/L (0-40); Blood Urea Nitrogen 10 mg/dL (8-23); Calcium 8.6 mg/dL (8.5-10.5); Carbon Dioxide 24 mmol/L (22-29); Chloride 101 mmol/L (98-107); Globulin 3.7 g/dL (1.3-4.6); Glomerular Filtration Rate 80.1 mL/min (90-130); Glucose 86 mg/dL (65-115); Osmolality Calculated 278 mOsm/kg (285-295); Sodium 135 mmol/L (136-145); Total Bilirubin 0.4 mg/dL (0.15-1.2)
--- NOTE | 2021-08-11 06:00 | USCV_ITS ---
Jerson Francis Age: 71 Gender: M : 1950 Exam Date: 08/11/2021 06:26 Ordering Phys: Serafin Bardales MD Technologist: Parris Cast [place] [facility] [place]: Swelling HISTORY: Lower extremity swelling. PROCEDURES: Venous duplex imaging was performed in only the left lower extremity. The following venous structures were evaluated: common femoral vein, profunda vein, proximal portion of the greater saphenous vein, superficial femoral vein, and the popliteal vein. In addition, the posterior tibial and peroneal trunk were evaluated. FINDINGS: Normal 2-D Doppler and augmentation and compressibility throughout the lower extremity venous structures. Additional imaging through the proximal calf veins also reveals no thrombus. Limited evaluation of the greater saphenous vein is patent with no thrombus. CONCLUSIONS No DVT left lower extremity. Dr. Mojgan Sherman DO (Electronically Signed) Final Date: 11 August 2021 08:00 S
[2021-08-11 06:58] LABS: Glucose Point of Care 106 mg/dL (70-110)
[2021-08-11] MEDS: sodium chloride 0.9% 1,000 ML 30 ML IV ×2 (07:35→10:07)
--- NOTE | 2021-08-11 08:17 | W.PM.OPSUD ---
Surgery/Procedure H&P Update DATE OF PROCEDURE: August 11, 2021 DATE H&P PERFORMED: 08/10/21 H&P UPDATE INFORMATION: I have reviewed H&P completed within last 30 days, I have examined patient prior to procedure and No changes to prior documentation PLANNED PROCEDURE: Operation Date: 08/11/21 13:05 Proposed Procedures p Amputation left second toe(Left) - Eugenio Moreno DPM
--- NOTE | 2021-08-11 08:22 | ANES.PREANE2 ---
Pre-Anesthetic Assessment Pre-Anesthetic Assessment: Height/Weight: Height 1.8 m Weight 118.025 kg Temp Pulse Resp BP Pulse Ox 97.5 F L 58 L 15 112/76 97 08/11/21 07:08 08/11/21 07:08 08/11/21 07:08 08/11/21 07:08 08/11/21 07:08 Proposed Procedure: Operation Date: 08/11/21 13:05 Proposed Procedures p Amputation left second toe(Left) - RAFAEL WillsM Was Beta Keith taken within 24 hours: N/A Was Clonidine taken within 24 hours: N/A Last intake: Intake Last Liquid Date 08/10/21 Last Liquid Time 20:00 Last Solid Date 08/10/21 Last Solid Time 20:00 Social: Social History: No alcohol and No tobacco Exam: Pre-Anes Outpt Exam: alert, oriented x 3, clear to auscultation bilaterally and regular rate & rhythm Airway: Submandibular: WNL Cervical ROM: WNL MP: 2 Dentition: Chipped and False (upper) Additional comments: Poor dentition on lower arch CV/HEM: CV/HEM: HTN and PVD Comments: Dilated Ao root Metabolic: Metabolic: DM Neuropsych: Neuropsych: CVA, Deficit (left weak) and Neuropathy Anesthetic Plan: ASA status: 3 Anesthesia: MAC Risk of > 500 ml blood loss (7ml/kg in children): No Meds/Allergies Current Medications: Current Medications Generic Name Dose Route Start Last Admin Trade Name Freq PRN Reason Stop Dose Admin Ciprofloxacin/Dext liliana 400 mg in 200 mls @ 200 mls/hr 08/10/21 22:14 08/11/21 00:17 Cipro IV Infused Q12H VERONICA Infusion Protocol Vancomycin HCl 1,0 00 mg/ 250 mls @ 250 mls /hr 08/11/21 02:30 08/11/21 04:10 Sodium Chloride IV Infused Q12H VERONICA Infusion Protocol As Directed Sodium Chloride 1,000 mls @ 30 ml s/hr 08/11/21 07:30 08/11/21 07:35 Sodium Chloride 0.9% IV 08/12/21 07:29 30 mls/hr .Q24H VERONICA Administration Latanoprost 1 drop 08/10/21 22:14 08/10/21 23:04 Latanoprost 0.00 5% Op Soln 2.5 Ml Btl EYE-LEFT 1 drop BEDTIME VERONICA Administration PFSH Anesthesia PFSH: Medical History (Updated 08/10/21 @ 20:44 by Eugenio Moreno DPM) 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 Amputated toe Blind right eye Cataract Glaucoma Hyperlipidemia Hypertension Ischemic stroke Sinus bradycardia Type 2 diabetes mellitus Urge incontinence of urine Surgical History H/O chest tube placement H/O hernia repair History of amputation of great toe Family History (Updated 08/10/21 @ 18:25 by Serafin Bardales MD) Father Glaucoma Social History Smoking and tobacco status: former smoker Quit status (tobacco): has quit using tobacco Year quit tobacco: 1997 Alcohol intake: never History of recent travel: No Data Anesthesia CBC & Chem 7: 08/11/21 04:40 08/11/21 04:40 Other Labs: Laboratory Results - last 48 hr 08/10/21 08/10/21 08/10/21 13:49 13:49 14:13 WBC 11.0 H RBC 4.58 Hgb 13.4 Hct 43.1 MCV 94.1 H MCH 29.3 MCHC 31.1 RDW 11.7 L Plt Count 255 MPV 10.6 H Neut % (Auto) 63.3 Lymph % (Auto) 18.5 [place] % (Auto) 14.9 Eos % (Auto) 2.5 Baso % (Auto) 0.5 Neut # (Auto) 6.94 Lymph # (Auto) 2.0 [place] # (Auto) 1.6 H Eos # (Auto) 0.3 Baso # (Auto) 0.1 Nucleated RBC % (auto) 0 Nucleated RBCs # 0.0 Sodium Cancelled Potassium Cancelled Chloride Cancelled Carbon Dioxide Cancelled Anion Gap Cancelled BUN Cancelled Creatinine Cancelled GFR Calculation Cancelled Glucose Cancelled POC Glucose Calculated Osmolality Cancelled Lactic Acid 1.1 Calcium Cancelled Total Bilirubin Cancelled AST Cancelled ALT Cancelled Alkaline Phosphatase Cancelled C-Reactive Protein Cancelled NT-Pro-B Natriuret Pep Total Protein Cancelled Albumin Cancelled Globulin Cancelled 09/08/10/21 08/11/21 14:13 14:13 04:40 WBC 7.6 RBC 4.25 Hgb 12.5 Hct 39.9 L MCV 93.9 MCH 29.4 MCHC 31.3 RDW 11.6 L Plt Count 266 MPV 10.3 Neut % (Auto) 50.1 Lymph % (Auto) 25.2 [place] % (Auto) 19.6 Eos % (Auto) 4.3 Baso % (Auto) 0.5 Neut # (Auto) 3.81 Lymph # (Auto) 1.9 [place] # (Auto) 1.5 H Eos # (Auto) 0.3 Baso # (Auto) 0.0 Nucleated RBC % (auto) 0 Nucleated RBCs # 0.0 Sodium 135 L Potassium 4.4 Chloride 97 L Carbon Dioxide 26 Anion Gap 16.4 BUN 11 Creatinine 1.1 GFR Calculation 80.1 L Glucose 102 POC Glucose Calculated Osmolality 280 L Lactic Acid Calcium 9.0 Total Bilirubin 0.4 AST 14 ALT 12 Alkaline Phosphatase 72 C-Reactive Protein 66.5 H NT-Pro-B Natriuret Pep 109 Total Protein 7.8 Albumin 3.8 Globulin 4.0 08/11/21 08/11/21 04:40 06:52 WBC RBC Hgb Hct MCV MCH MCHC RDW Plt Count MPV Neut % (Auto) Lymph % (Auto) [place] % (Auto) Eos % (Auto) Baso % (Auto) Neut # (Auto) Lymph # (Auto) [place] # (Auto) Eos # (Auto) Baso # (Auto) Nucleated RBC % (auto) Nucleated RBCs # Sodium 135 L Potassium 4.0 Chloride 101 Carbon Dioxide 24 Anion Gap 14.0 BUN 10 Creatinine 1.1 GFR Calculation 80.1 L Glucose 86 POC Glucose 106 Calculated Osmolality 278 L Lactic Acid Calcium 8.6 Total Bilirubin 0.4 AST 14 ALT 12 Alkaline Phosphatase 64 C-Reactive Protein NT-Pro-B Natriuret Pep Total Protein 7.0 Albumin 3.3 L Globulin 3.7 Micro: Microbiology 08/10/21 14:15 Blood Culture - Preliminary Blood SPECIMEN COLLECTED 08/10/21 14:13 Blood Culture - Preliminary Blood SPECIMEN COLLECTED Cardiac Studies: Cardiac Event Monitor 04/13/21
[2021-08-11] MEDS: lidocaine 1% INJ 20 mL 15 ML INJECTION (08:56)
--- NOTE | 2021-08-11 09:12 | P.PCN_ITS ---
PACU note PACU note: VSS, Good respiratory effort, report to CUSTOMER SERVICE DISPATCHER Post-Anesthesia Exam: awake
--- NOTE | 2021-08-11 09:12 | PM.PACU ---
PACU note PACU note: VSS, Good respiratory effort, report to INTEGRATION DIRECTOR Post-Anesthesia Exam: awake
--- NOTE | 2021-08-11 09:19 | XR_ITS ---
WS: [id number] XR foot LT 2V 63112 REASON FOR EXAM: post op FINDINGS: 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 Compared to previous examination of 08/10/2021 there is been amputation of the phalanges of the left s econd toe. No residual bone. No other significant abnormality. XR/XR foot LT 2V 52002 IMPRESSION: Postoperative left foot as above.
--- NOTE | 2021-08-11 09:19 | PM.OP ---
Operative Report Date of procedure: August 11, 2021 Pre-op Diagnosis: Gas gangrene left second toe Post-op diagnosis: same Post-op Findings: Gas gangrene with osteomyelitis distal phalanx left second toe Procedure Done: Left second toe amputation at the metatarsophalangeal joint Implants: 3-0 Vicryl 4-0 nylon Pathology: Left second toe sent to pathology for permanent Surgeon: Eugenio Moreno D.P.M. Customer Service Coordinator: Alix Anesthesia: MAC Estimated blood loss: Less than 5 mL Tourniquet time: 12 minutes IV fluids: None Urine output: None Complications: None Findings: Devitalized tissue down to bone at the distal phalanx left second toe Condition: stable Disposition: PACU Brief History: Gas gangrene left second toe face admitted for surgical intervention. He is wishing to proceed with amputation. Risks include pain, bleeding, numbness, infection, higher level of amputation, need for IV antibiotics, wound care modalities and offloading. Delayed healing. Altered mechanics and transfer pressure with transfer lesions. Informed consent signed. Patient is agreeable wishes to proceed Covid screening pending, informed consent signed, patient is n.p.o. No guarantees written, expressed or implied. Procedure: Under mild sedation the patient was brought to the operating room and remained on the gurney in supine position. A timeout was performed. Anesthesia was administered by the anesthesia service. Local anesthesia injected by myself consisting of one-to-one mixture 1% lidocaine 0.5 Marcaine plain and a left second ray block total of 30 cc utilized left foot. Well-padded pneumatic tourniquet applied to the left ankle. Left lower extremity was scrubbed, prepped and draped utilizing normal aseptic technique. Left foot was then elevated and the tourniquet inflated to 250 mmHg. Attention was directed to the left second toe where a full-thickness incision was made a vertical fishmouth and the left second toe was disarticulated at the second metatarsophalangeal joint this was passed from the operative field and sent to pathology for permanent. No devitalized tissue at this level appreciated. Bleeders were ligated and cauterized as necessary. Tendons were transected at the most proximal margin. Second metatarsal head was bright and viable appeared to be infection free. Incision was flushed with copious amounts sterile saline solution. Subcutaneous tissue closed with 3-0 Vicryl and skin closed with accommodation of 4-0 nylon and 3-0 nylon. This was then dressed with Adaptic, sterile 4 x 4, Kerlix and Geoff wrap. Tourniquet was deflated and a prompt hyperemic response was noted to toes three through five left foot. Patient tolerated procedure well and was transferred to the PACU with vital signs stable and vascular status intact. Following a period of postoperative monitoring will be transferred back to the floor. Patient okay for discharge from podiatry standpoint on oral antibiotics will discuss this with hospitalist. Will follow up in podiatry clinic next week.
[2021-08-11 11:02] LABS: Glucose Point of Care 107 mg/dL (70-110)
--- NOTE | 2021-08-11 11:32 | PM.DCS ---
Discharge Providers Date of Admission: 08/10/21 17:00 Date of Discharge: August 11, 2021 Attending Provider at Admission: Serafin Bardales Attending Provider at Discharge: Serafin Bardales Primary Care Provider: Tonio Delatorre DO Diagnoses at Discharge Discharge Diagnosis (1) Diabetic peripheral neuropathy associated with type 2 diabetes mellitus: Status: Acute (2) Gangrene of toe of left foot: Status: Acute (3) Soft tissue emphysema: Status: Acute (4) Osteomyelitis of toe of left foot: Status: Acute Reason for Visit Reason for Visit: LEFT TOE INJURY Hospital Course Hospital Course Pleasant 71-year-old gentleman with history of diabetes, CVA, with residual left-sided weakness, clumsiness, facial droop, with prior diabetic infection of the great toe on the left foot, requiring amputation, recently with nonresolving infection, swelling, foul-smelling drainage from second toe since April-May. Reported low-grade fever at home, although he remained afebrile, on presentation without sepsis. However, with noted infection of the second toe, as well as pathological fracture with dislocation of the DIP joint. Swelling of left lower extremity was assessed by duplex and no DVT was noted. He was started on treatment with antibiotics with vancomycin, ciprofloxacin. Was assessed by podiatry. With longstanding drainage and infection with likely presence of osteomyelitis, he underwent definitive treatment today after discussion of options with left second toe amputation at metatarsophalangeal joint. The procedure was uneventful, with noted clean margins. He was doing well postoperatively, was cleared for discharge with podiatry with follow-up requested for reassessment next week. As per recommendations he will continue on 2 additional weeks of antibiotics. He is asked to continue dressing, maintain surgical shoe, avoid injury to his left foot. Physical Exam Narrative: EXAM NARRATIVE: He is doing well postoperatively. Denies any complaints apart from being hungry. Denies any trouble breathing. No chest pain or pressure. He feels good about returning home with outpatient follow-up. Const: COMMON NORMALS: no acute distress, patient oriented x3 and alert GENERAL APPEARANCE: frail appearing NUTRITIONAL APPEARANCE: overweight ORIENTATION/CONSCIOUSNESS: Yes awake HENMT: COMMON NORMALS: oropharynx normal Neck/C-Spine: COMMON NORMALS: no JVD Resp: COMMON NORMALS: normal respiratory effort and clear to auscultation bilaterally AUSCULTATION: clear to auscultation bilaterally Cardio: COMMON NORMALS: no JVD, regular rhythm, S1 normal heart sound present, S2 normal heart sound present and No murmurs present (Cardio) RHYTHM: regular rhythm HEART SOUNDS: S1 normal heart sound present and S2 normal heart sound present GI: COMMON NORMALS: Normal to inspection, nondistended, normoactive bowel sounds present, Soft to palpation and non-tender PALPATION: Yes Soft to palpation Extremity: OTHER: Prior amputation L great toe. Currently clean surgical dressing after amputation, surgical shoe. Neuro: COMMON NORMALS: patient oriented x3 and moves all extremities SENSORIUM/ORIENTATION: Yes alert Skin: OTHER: No erythema extending proximally. Discharge Data Data Completed and Pending: Completed Studies During Hospitalization Category Date Time Status XR foot LT 2V 736 20 Routine Exams 08/11/21 09:19 Completed XR foot LT min 3V * 61660 Urgent Exams 08/10/21 13:33 [place] [address] Urgent Ultrasound 08/11/21 06:00 Completed Pending at discharge Category Date Time Status Blood Culture Sta t Lab 08/10/21 14:15 Results Complete Blood Co unt w/Auto AM LABS Lab 08/12/21 04:00 Ordered Complete Blood Co unt w/Auto AM LABS Lab 08/13/21 04:00 Ordered Comprehensive Met abolic Panel AM LA BS Lab 08/12/21 04:00 Ordered Comprehensive Met abolic Panel AM LA BS Lab 08/13/21 04:00 Ordered Coronavirus Test [facility] Lab 08/10/21 17:16 Received Vancomycin Trough Timed Lab 08/12/21 01:30 Ordered Wound Culture and Gram Stain Routin e Lab 08/10/21 22:14 Uncollected Labs from last 24 hours 08/11/21 08/11/21 08/11/21 10:50 06:52 04:40 WBC RBC Hgb Hct MCV MCH MCHC RDW Plt Count MPV Neut % (Auto) Lymph % (Auto) [place] % (Auto) Eos % (Auto) Baso % (Auto) Neut # (Auto) Lymph # (Auto) [place] # (Auto) Eos # (Auto) Baso # (Auto) Nucleated RBC % (a uto) Nucleated RBCs # Sodium 135 L Potassium 4.0 Chloride 101 Carbon Dioxide 24 Anion Gap 14.0 BUN 10 Creatinine 1.1 GFR Calculation 80.1 L Glucose 86 POC Glucose 107 106 Calculated Osmolal ity 278 L Lactic Acid Calcium 8.6 Total Bilirubin 0.4 AST 14 ALT 12 Alkaline Phosphata se 64 C-Reactive Protein NT-Pro-B Natriuret Pep Total Protein 7.0 Albumin 3.3 L Globulin 3.7 Nasal/Oral COVID-1 9 PCR 08/11/21 08/10/21 08/10/21 04:40 17:16 14:13 WBC 7.6 RBC 4.25 Hgb 12.5 Hct 39.9 L MCV 93.9 MCH 29.4 MCHC 31.3 RDW 11.6 L Plt Count 266 MPV 10.3 Neut % (Auto) 50.1 Lymph % (Auto) 25.2 [place] % (Auto) 19.6 Eos % (Auto) 4.3 Baso % (Auto) 0.5 Neut # (Auto) 3.81 Lymph # (Auto) 1.9 [place] # (Auto) 1.5 H Eos # (Auto) 0.3 Baso # (Auto) 0.0 Nucleated RBC % (a uto) 0 Nucleated RBCs # 0.0 Sodium Potassium Chloride Carbon Dioxide Anion Gap BUN Creatinine GFR Calculation Glucose POC Glucose Calculated Osmolal ity Lactic Acid Calcium Total Bilirubin AST ALT Alkaline Phosphata se C-Reactive Protein NT-Pro-B Natriuret Pep 109 Total Protein Albumin Globulin Nasal/Oral COVID-1 9 PCR Pending 08/10/21 08/10/21 08/10/21 14:13 14:13 13:49 WBC RBC Hgb Hct MCV MCH MCHC RDW Plt Count MPV Neut % (Auto) Lymph % (Auto) [place] % (Auto) Eos % (Auto) Baso % (Auto) Neut # (Auto) Lymph # (Auto) [place] # (Auto) Eos # (Auto) Baso # (Auto) Nucleated RBC % (a uto) Nucleated RBCs # Sodium 135 L Cancelled Potassium 4.4 Cancelled Chloride 97 L Cancelled Carbon Dioxide 26 Cancelled Anion Gap 16.4 Cancelled BUN 11 Cancelled Creatinine 1.1 Cancelled GFR Calculation 80.1 L Cancelled Glucose 102 Cancelled POC Glucose Calculated Osmolal ity 280 L Cancelled Lactic Acid 1.1 Calcium 9.0 Cancelled Total Bilirubin 0.4 Cancelled AST 14 Cancelled ALT 12 Cancelled Alkaline Phosphata se 72 Cancelled C-Reactive Protein 66.5 H Cancelled NT-Pro-B Natriuret Pep Total Protein 7.8 Cancelled Albumin 3.8 Cancelled Globulin 4.0 Cancelled Nasal/Oral COVID-1 9 PCR 08/10/21 13:49 WBC 11.0 H RBC 4.58 Hgb 13.4 Hct 43.1 MCV 94.1 H MCH 29.3 MCHC 31.1 RDW 11.7 L Plt Count 255 MPV 10.6 H Neut % (Auto) 63.3 Lymph % (Auto) 18.5 [place] % (Auto) 14.9 Eos % (Auto) 2.5 Baso % (Auto) 0.5 Neut # (Auto) 6.94 Lymph # (Auto) 2.0 [place] # (Auto) 1.6 H Eos # (Auto) 0.3 Baso # (Auto) 0.1 Nucleated RBC % (a uto) 0 Nucleated RBCs # 0.0 Sodium Potassium Chloride Carbon Dioxide Anion Gap BUN Creatinine GFR Calculation Glucose POC Glucose Calculated Osmolal ity Lactic Acid Calcium Total Bilirubin AST ALT Alkaline Phosphata se C-Reactive Protein NT-Pro-B Natriuret Pep Total Protein Albumin Globulin Nasal/Oral COVID-1 9 PCR Vitals: Last Vital Signs Temp 97.6 F 08/11/21 10:10 Pulse 52 L 08/11/21 10:40 Resp 18 08/11/21 10:40 BP 131/81 08/11/21 10:40 Pulse Ox 97 08/11/21 10:40 Discharge Plan Discharge Patient Disposition: Home Condition: Stable Prescriptions: New ciprofloxacin HCl [Cipro] 500 mg tablet 500 mg PO BID Qty: 12 RF: 0 doxycycline hyclate 100 mg tablet 100 mg PO BID 12 Days Qty: 24 RF: 0 Continued aspirin [Adult Aspirin Regimen] 81 mg tablet,delayed release (DR/EC) 81 mg PO DAILY RF: 0 brimonidine 0.1 % drops 1 drop ophthalmic (eye) BID RF: 0 latanoprost 0.005 % drops 1 drop ophthalmic (eye) BEDTIME RF: 0 Metamucil (with sugar) 3.4 gram/7 gram powder 1 tbsp PO DAILY Qty: 822 RF: 0 metformin 500 mg tablet 500 mg PO BID RF: 0 dorzolamide-timolol 22.3-6.8 mg/mL drops 1 drp ophthalmic (eye) BID RF: 0 lisinopril 5 mg tablet 5 mg PO DAILY RF: 0 atorvastatin [Lipitor] 40 mg tablet 40 mg PO DAILY Qty: 30 RF: 3 chromium 100 mcg Tablet 100 mcg PO DAILY RF: 0 zinc 50 mg Tablet 50 mg PO DAILY RF: 0 selenium 100 mcg Tablet 100 mcg PO DAILY RF: 0 Alphagan P 0.1 % drops 1 drp ophthalmic (eye) BID RF: 0 Vitamin D3 25 mcg (1,000 unit) Tablet 25 mcg PO DAILY RF: 0 PreserVision AREDS 7,160 unit- 113 mg-100 unit Tablet 2 tab PO BID RF: 0 Discharge Orders: Discharge Order (Routine); Ordered 08/11/21 Ordered By: Serafin Bardales Referrals: Eugenio Moreno DPM [Physician] - 4-7 days Tonio Delatorre DO [Primary Care Provider] - 4-7 days Discharge Diet: Cardiac and Diabetic Discharge Activity: Limit activity as instructed Activity Restrictions/Additional Instructions: Continue dressing, continue with surgical shoe on the left foot. Do not walk barefoot. Exercise caution not to injure your foot. Please follow-up with podiatry DrBernie In office next week for reassessment of the wound. Complete antibiotic course. Follow-up with your primary provider for reassessment of the wound, antibiotic course, reassessment of diabetes control. In case you experience bleeding, abnormal discharge, severe pain, fever, difficulty breathing, chest pain or any other concerning symptoms, please seek medical attention. Discharge Attestations Time Spent in Discharge Care*: greater than 30 min Quality Metrics Clinical Quality Measures During this hospital stay, did patient experience: None Coding Level of Care Code Acute [facility] note Exam Detailed Diagnoses Diabetic peripheral neuropathy associated with type 2 diabetes mellitus E11.42 Gangrene of toe of left foot I96 Soft tissue emphysema T79.7XXA Osteomyelitis of toe of left foot M86.9
--- NOTE | 2021-08-11 13:38 | ANE.PACU2 ---
Inpatient post-anesthesia follow up: Airway intact: Yes Vital signs: Temperature 97.6 F Pulse Rate [Monito r] 62 Pulse Rate 56 Respiratory Rate 18 Blood Pressure [Le ft Arm] 141/85 Blood Pressure 135/81 Pulse Oximetry 100 Oxygen Delivery Me thod Room Air Oxygen Flow Rate Fraction of Inspir ed Oxygen Hydration adequate: Yes Nausea and vomiting: No Pain level: 2 Mental status: Baseline
[2021-08-11 14:41] LABS: Coronavirus Test Green County Not Detected
--- NOTE | 2021-08-14 12:43 | PC.SOCIAL ---
discharge follow up call made, spoke with patient. patient is taking new medications as prescribed. they are aware of follow up appointment dates and times. patient is continuing to change dressing and wear walking shoe. no questions voiced.
== END 2021-08-11 14:29 | disposition home or self-care (01) | DRG 255 ==
LOC: ER 16:26 → MEDSURG 18:40
PROVIDERS: Podiatrist Foot & Ankle Surgery; Admitting Provider Internal Medicine; Emergency Provider Physician Assistant; PCP Family Medicine; Visit Provider Internal Medicine
PROC: 0Y6S0Z0 Detachment at Left 2nd Toe, Complete, Open Approach (ICD-10-PCS; principal; 2021-08-11 12:55)
DX: E11.52 Type 2 diabetes mellitus with diabetic peripheral angiopathy with gangrene (principal); A48.0 Gas gangrene; I69.354 Hemiplegia and hemiparesis following cerebral infarction affecting left non-dominant side; M86.9 Osteomyelitis, unspecified; M84.478A Pathological fracture, left toe(s), initial encounter for fracture; E11.69 Type 2 diabetes mellitus with other specified complication; E11.42 Type 2 diabetes mellitus with diabetic polyneuropathy; I69.392 Facial weakness following cerebral infarction; I10 Essential (primary) hypertension; H54.61 Unqualified visual loss, right eye, normal vision left eye; E78.5 Hyperlipidemia, unspecified; Z87.891 Personal history of nicotine dependence; Z79.84 Long term (current) use of oral hypoglycemic drugs; Z89.412 Acquired absence of left great toe
CPT/HCPCS: 36415; 36416; 73620; 73630; 80053; 82962; 83605; 83880; 85025; 86140; 87040; 87635; 88305; 88311; 93971; 96365; 96367; 96372; 99285; J0743; J0744; J1644; J2704; J3010; J3370; J3490; J7030; J7050; L3260

== ENCOUNTER → 2021-08-29 12:54 | Outpatient (BNVA) | payer MEDICARE, SELFPAY | PROVIDERS: PCP Family Medicine; Visit Provider Internal Medicine | DX: R10.13 Epigastric pain (principal); R19.4 Change in bowel habit; Z20.822 Contact with and (suspected) exposure to COVID-19 | CPT/HCPCS: 87635 ==

== ENCOUNTER 2021-09-04 07:21 | Day surgery (SDC) | payer MEDICARE, SELFPAY ==
--- NOTE | 2021-09-04 07:39 | ANES.PREANE2 ---
Pre-Anesthetic Assessment Pre-Anesthetic Assessment: Height/Weight: Height 1.8 m Weight 89.811 kg Preop Diagnosis: Gas gangrene left second toe Proposed Procedure: Operation Date: 09/04/21 08:45 Proposed Procedures p EGD/Colon 71181 R10.13(Not Applicable) - Manolo Vinson MD s Colonoscopy 27716 R19.4(Not Applicable) - Manolo Vinson MD Familial anesthetic complications: none Was Beta Keith taken within 24 hours: N/A Was Clonidine taken within 24 hours: N/A Last intake: > 8 hrs Social: Social History: No alcohol and No tobacco Exam: Pre-Anes Outpt Exam: alert, oriented x 3, clear to auscultation bilaterally and regular rate & rhythm Airway: Cervical ROM: WNL MP: 2 Dentition: False Pulmonary: Comments: collapsed lung a couple of years ago CV/HEM: CV/HEM: HTN Comments: Echo 2020 CONCLUSIONS 1. Normal left ventricular size and systolic functionwith no regional wall motion abnormalities. Left ventricular ejection fraction is estimated at 65 %. Normal diastolic function. 2. Normal right ventricular size and systolic function. 3. No significant valvular abnormality. 4. Mildly dilated aortic root measured anteroposteriorly at 41 mm. 5. No prior similar studies to compare. cardiac event monitor 2020 Conclusion: 1. Baseline rhythm is sinus bradycardia or sinus rhythm. Heart rate ranged from 41 to 128 bpm with average heart rate of 59 bpm. 2. One 4 beats long run of nonsustained ventricular tachycardia at 158 bpm on 16 April at 9:12 AM. 3. Normal event monitor. Metabolic: Metabolic: DM and Hyperlipidemia Neuropsych: Neuropsych: CVA (april side weak) Comments: carotid doppler CONCLUSIONS Bilateral ICA stenosis less than 50%. Mild diffuse atherosclerosis. 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 Amputated toe Blind right eye Cataract Diabetic peripheral neuropathy associated with type 2 diabetes mellitus Diabetic toe ulcer Gangrene of toe of left foot Glaucoma Hyperlipidemia Hypertension Ischemic stroke Osteomyelitis of toe of left foot Pathological fracture of toe Sinus bradycardia Toe infection Type 2 diabetes mellitus Urge incontinence of urine Surgical History H/O chest tube placement H/O hernia repair History of amputation of great toe Family History Father Glaucoma Social History Smoking and tobacco status: former smoker Quit status (tobacco): has quit using tobacco Year quit tobacco: 1997 Alcohol intake: never History of recent travel: No Data Anesthesia Cardiac Studies: Cardiac Event Monitor 04/13/21
--- NOTE | 2021-09-04 07:46 | P.HP_ITS ---
Same Day Surgery H&P Indication for Procedure/HPI DATE OF PROCEDURE: September 04, 2021 CHIEF COMPLAINT/INDICATIONFOR SURGICAL PROCEDURE: Change in bowel habit PREOP DIAGNOSIS: Gas gangrene left second toe PLANNED PROCEDRUE: Operation Date: 09/04/21 08:45 Proposed Procedures p EGD/Colon 77282 R10.13(Not Applicable) - Manolo Vinson MD s Colonoscopy 09487 R19.4(Not Applicable) - Manolo Vinson MD Medications/Allergies* Home Medications Medication Instructions Recorded Confirmed Type aspirin 81 mg tablet,delayed 81 mg PO DAILY 01/15/20 08/31/21 History release brimonidine 0.1 % eye drops 1 drop OPHTHALMIC (EYE) BID ml 01/15/20 08/31/21 History latanoprost 0.005 % eye drops 1 drop OPHTHALMIC (EYE) BEDTIME 01/15/20 08/31/21 History dorzolamide-timolol 1 drp OPHTHALMIC (EYE) BID 03/19/21 08/31/21 History lisinopril 5 mg PO DAILY 03/19/21 08/31/21 History metformin 500 mg PO DAILY 03/19/21 08/31/21 History Alphagan P 1 drp OPHTHALMIC (EYE) BID 08/10/21 08/31/21 History PreserVision AREDS 2 tab PO BID 08/10/21 08/31/21 History cholecalciferol (vitamin D3) 25 mcg PO DAILY 08/10/21 08/31/21 History [Vitamin D3] chromium 100 mcg PO DAILY 08/10/21 08/31/21 History selenium 100 mcg PO DAILY 08/10/21 08/31/21 History zinc 50 mg PO DAILY 08/10/21 08/31/21 History doxycycline hyclate 100 mg PO BID 08/31/21 08/31/21 History Allergies/Adverse Reactions Allergy/AdvReac Type Severity Reaction Status Date / Time Penicillins Allergy Mild ALGY-Rash Verified 08/31/21 10:36 Pertinent History/Comorbid Conditions* Medical History (Updated 08/28/21 @ 20:52 by Eugenio Moreno DPM) 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 Amputated toe Blind right eye Cataract Diabetic peripheral neuropathy associated with type 2 diabetes mellitus Diabetic toe ulcer Gangrene of toe of left foot Glaucoma Hyperlipidemia Hypertension Ischemic stroke Osteomyelitis of toe of left foot Pathological fracture of toe Sinus bradycardia Toe infection Type 2 diabetes mellitus Urge incontinence of urine Surgical History (Updated 08/10/21 @ 18:25 by Serafin Bardales MD) H/O chest tube placement H/O hernia repair History of amputation of great toe Family History (Updated 08/10/21 @ 18:25 by Serafin Bardales MD) Glaucoma Father Social History Smoking and tobacco status: former smoker Quit status (tobacco): has quit using tobacco Year quit tobacco: 1997 Alcohol intake: never History of recent travel: No Pertinent Exam Findings alert, oriented x 3, clear to auscultation bilaterally, regular rate & rhythm, operative site marked and procedure specific exam findings Recommendations Surgery/Procedure today Coding Level of Care Code Acute Occupational Rehabilitation Aide for Dameon Rajput
[2021-09-04 08:15] VITALS: BP 146/87; PULSE 83; RESP 18; TEMP 36.6; O2SAT 99
[2021-09-04 08:59] LABS: Glucose Point of Care 73 mg/dL (70-110)
[2021-09-04] MEDS: sodium chloride 0.9% 1,000 ML 30 ML IV (09:16)
[2021-09-04 09:57] VITALS: BP 138/86; PULSE 62; RESP 16; TEMP 36.3; O2SAT 97
[2021-09-04 10:11] VITALS: BP 126/86; PULSE 58; RESP 16; O2SAT 100
--- NOTE | 2021-09-04 14:57 | ANE.PACU2 ---
Inpatient post-anesthesia follow up: Airway intact: Yes Vital signs: Temperature 97.4 F Pulse Rate 58 Respiratory Rate 16 Blood Pressure 126/86 Pulse Oximetry 100 Oxygen Delivery Me thod Room Air Oxygen Flow Rate Fraction of Inspir ed Oxygen Hydration adequate: Yes Nausea and vomiting: No Pain level: 1 Mental status: Baseline
== END 2021-09-04 10:30 | disposition home or self-care (01) ==
PROVIDERS: PCP Family Medicine; Visit Provider Internal Medicine
PROC: 0DJ08ZZ Inspection of Upper Intestinal Tract, Via Natural or Artificial Opening Endoscopic (ICD-10-PCS; CPT 43235; principal; 2021-09-04 08:45)
PROC: 0DJD8ZZ Inspection of Lower Intestinal Tract, Via Natural or Artificial Opening Endoscopic (ICD-10-PCS; CPT 45378; 2021-09-04 08:45)
DX: R19.4 Change in bowel habit (principal); R10.13 Epigastric pain; Z79.82 Long term (current) use of aspirin; Z86.73 Personal history of transient ischemic attack (TIA), and cerebral infarction without residual deficits; E11.42 Type 2 diabetes mellitus with diabetic polyneuropathy; E78.5 Hyperlipidemia, unspecified; I10 Essential (primary) hypertension; Z87.891 Personal history of nicotine dependence
CPT/HCPCS: 36416; 43235; 82962; 96360; 96365; 96375; G0121; J2704; J7030

== ENCOUNTER → 2022-02-28 14:03 | Outpatient (BNVA) | payer MEDICARE, SELFPAY | PROVIDERS: PCP Family Medicine; Visit Provider Podiatrist Foot & Ankle Surgery | DX: E11.621 Type 2 diabetes mellitus with foot ulcer (principal); L97.522 Non-pressure chronic ulcer of other part of left foot with fat layer exposed; E11.42 Type 2 diabetes mellitus with diabetic polyneuropathy; M20.41 Other hammer toe(s) (acquired), right foot; M20.42 Other hammer toe(s) (acquired), left foot; Z89.422 Acquired absence of other left toe(s) | CPT/HCPCS: 11042 ==

== ENCOUNTER → 2022-03-26 12:39 | Outpatient (BNVA) | payer MEDICARE, SELFPAY | PROVIDERS: PCP Family Medicine; Visit Provider Podiatrist Foot & Ankle Surgery | DX: E11.621 Type 2 diabetes mellitus with foot ulcer (principal); L97.522 Non-pressure chronic ulcer of other part of left foot with fat layer exposed; E11.42 Type 2 diabetes mellitus with diabetic polyneuropathy; M20.41 Other hammer toe(s) (acquired), right foot; M20.42 Other hammer toe(s) (acquired), left foot; Z89.422 Acquired absence of other left toe(s); L84 Corns and callosities; Z87.891 Personal history of nicotine dependence | CPT/HCPCS: 11042; 11055 ==

== ENCOUNTER → 2022-04-19 14:52 | Outpatient (BNVA) | payer MEDICARE, SELFPAY | PROVIDERS: PCP Family Medicine; Visit Provider Podiatrist Foot & Ankle Surgery | DX: E11.621 Type 2 diabetes mellitus with foot ulcer (principal); L97.524 Non-pressure chronic ulcer of other part of left foot with necrosis of bone; E11.42 Type 2 diabetes mellitus with diabetic polyneuropathy; M20.41 Other hammer toe(s) (acquired), right foot; M20.42 Other hammer toe(s) (acquired), left foot; L84 Corns and callosities; Z89.422 Acquired absence of other left toe(s) | CPT/HCPCS: 73630 ==

== ENCOUNTER 2022-04-19 16:02 | Outpatient (CLI) | payer MEDICARE, SELFPAY | END 2022-04-19 16:03 | disposition home or self-care (01) | LOC: SPT 16:03 | PROVIDERS: PCP Family Medicine; Visit Provider Podiatrist Foot & Ankle Surgery | DX: Z46.89 Encounter for fitting and adjustment of other specified devices (principal); E11.621 Type 2 diabetes mellitus with foot ulcer; L97.525 Non-pressure chronic ulcer of other part of left foot with muscle involvement without evidence of necrosis; Z89.422 Acquired absence of other left toe(s); Z79.84 Long term (current) use of oral hypoglycemic drugs | CPT/HCPCS: 73630; 87070; 87075; 87077; 87186; 87205; 97760; L4361 ==

== ENCOUNTER 2022-04-20 09:47 | Day surgery (SDC) | payer MEDICARE, SELFPAY ==
[2022-04-19 17:54] VITALS: BMI 27.1
[2022-04-20 10:38] VITALS: BP 127/68; PULSE 58; RESP 16; TEMP 36.4; O2SAT 98
--- NOTE | 2022-04-20 11:05 | ANES.PREANE2 ---
Pre-Anesthetic Assessment Height/Weight: Height 1.8 m Weight 88.451 kg Temp Pulse Resp BP Pulse Ox 97.5 F L 58 L 16 127/68 98 04/20/22 10:38 04/20/22 10:38 04/20/22 10:38 04/20/22 10:38 04/20/22 10:38 Preop Diagnosis: Osteomyelitis left third toe Operation Date: 04/20/22 11:20 Proposed Procedures p Amputation left third toe 27658(Left) - Eugenio Moreno DPM Familial anesthetic complications: none Was Beta Keith taken within 24 hours: N/A Was Clonidine taken within 24 hours: N/A Last intake: Intake Last Liquid Date 04/19/22 Last Liquid Time 20:00 Last Solid Date 04/19/22 Last Solid Time 19:00 Social No alcohol and No tobacco Airway Submandibular: within normal limits Cervical ROM: within normal limits Mallampati: Class I Comments: Comments: Missing many teeth Poor dentition Pulmonary None reported CV/HEM Hypertension TTE 03/2021 CONCLUSIONS ?1. Normal left ventricular size and systolic functionwith no ?regional wall motion abnormalities. Left ventricular ejection ?fraction is estimated at 65 %. Normal diastolic function. ?2. Normal right ventricular size and systolic function. ?3. No significant valvular abnormality. ?4. Mildly dilated aortic root measured anteroposteriorly at 41 ?mm. ?5. No prior similar studies to compare. None reported GI Gastroesophageal Reflux Disease Metabolic Diabetes Mellitus Diabetic infection [facility] Osteoarthritis/DJD Neuropsych Cerebrovascular Accident Anesthetic Plan ASA status: 3 (71 year old male with diabetic foot infection, neuropathy, enlarged aortic root, hx of CVA ) Anesthesia: Anesthesia Evaluation, General and MAC Other: I discussed with the patient risks, goals, and benefits of MAC and general anesthesia. We discussed spectrum of MAC anesthesia including conversion to general as well as possibility of recall of intraoperative stimuli including discomfort/pain. Patient agrees to proceed with MAC. Risk of > 500 ml blood loss (7ml/kg in children): No Medications/Allergies Home Medications Medication Instructions Recorded Confirmed Last Taken Type aspirin 81 mg tablet,delayed 81 mg PO DAILY 01/15/20 04/20/22 04/19/22 08:00 History release (Adult Aspirin Regimen) brimonidine 0.1 % eye drops 1 drop OPHTHALMIC (EYE) BID ml 01/15/20 04/20/22 04/19/22 History latanoprost 0.005 % eye drops 1 drop OPHTHALMIC (EYE) BEDTIME 01/15/20 04/19/22 09/03/21 History dorzolamide 22.3 mg-timolol 6.8 1 drp OPHTHALMIC (EYE) BID 03/19/21 04/20/22 04/19/22 History mg/mL eye drops vitamins A,C,C-iocx-jiimno 7,160 2 tab PO BID 08/10/21 04/19/22 08/09/21 History unit-113 mg-100 unit tablet (PreserVision AREDS) Diabetic shoes with 3 inserts #1 ea 09/08/21 04/19/22 Unknown Rx atorvastatin 40 mg tablet (Lipitor) 40 mg PO DAILY #90 tab 10/18/21 04/20/22 04/19/22 08:00 Rx lisinopril 5 mg tablet See Rx Instructions .ROUTE 11/08/21 04/20/22 04/19/22 Rx .COMPLEX #90 tablet Cam Boot to the left #1 ea 04/19/22 04/19/22 Unknown Rx atropine 1 % eye drops drp 04/19/22 04/19/22 History difluprednate 0.05 % eye drops 1 drp OPHTHALMIC (EYE) BID 04/19/22 04/20/22 04/19/22 History (Durezol) metformin 500 mg tablet 500 04/19/22 04/19/22 08:00 History sulfamethoxazole 800 2 tab PO BID 10 Days #40 tab 04/19/22 04/20/22 04/19/22 Rx mg-trimethoprim 160 mg tablet (Bactrim DS) Allergies Allergy/AdvReac Type Severity Reaction Status Date / Time Penicillins Allergy Mild ALGY-Rash Verified 04/19/22 17:43 [facility] Anesthesia Medical History 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 Amputated toe Blind right eye Cataract Diabetic peripheral neuropathy associated with type 2 diabetes mellitus Diabetic toe ulcer Gangrene of toe of left foot Glaucoma Hyperlipidemia Hypertension Ischemic stroke Osteomyelitis of toe of left foot Pathological fracture of toe Sinus bradycardia Toe infection Type 2 diabetes mellitus Urge incontinence of urine Surgical History H/O chest tube placement H/O hernia repair History of amputation of great toe Family History Father Glaucoma Social History Smoking and tobacco status: never smoked Quit status (tobacco): has quit using tobacco Year quit tobacco: 1997 Alcohol intake: never History of recent travel: No Data Anesthesia Cardiac Studies: Echocardiogram Ultrasound 04/04/21 Cardiac Event Monitor 04/13/21
[2022-04-20] MEDS: sodium chloride 0.9% 1,000 ML 30 ML IV (11:13)
[2022-04-20 11:21] LABS: Glucose Point of Care 77 mg/dL (70-110)
--- NOTE | 2022-04-20 11:24 | W.PM.OPSUD ---
Surgery/Procedure H&P Update DATE OF PROCEDURE: April 20, 2022 DATE H&P PERFORMED: 04/19/22 CHANGES TO PREVIOUS DOCUMENTATION: None PREOP DIAGNOSIS: Osteomyelitis left third toe PRIMARY INDICATION FOR PROCEDURE: Osteomyelitis PLANNED PROCEDURE: Operation Date: 04/20/22 11:20 Proposed Procedures p Amputation left third, fourth and fifth toes 72682(Left) - Eugenio Moreno DPM
[2022-04-20] MEDS: clindamycin 600 MG/50 ML PREMIX 100 MG IV (11:42)
[2022-04-20] MEDS: lidocaine 2% INJ 20 mL INJECTION (12:05)
[2022-04-20 12:15] VITALS: BP 130/74; PULSE 57; RESP 16; TEMP 37.6; O2SAT 100
--- NOTE | 2022-04-20 12:18 | XR_ITS ---
WS: [id number] Exam: XR foot LT 2V [id number] Date/Time of Exam: 04/20/2022 12:20 PM Reason For Exam: post op Comparison 04/19/2022. The third, fourth and fifth toes have been surgically removed. Remaining aspects of the foot are in t act. The first and second toes have been removed previously. XR/XR foot LT 2V [id number] IMPRESSION: 1. Recent amputation of the third fourth and fifth toes.
--- NOTE | 2022-04-20 12:19 | PM.OP ---
Operative Report Date of procedure: April 20, 2022 Pre-op diagnosis: Osteomyelitis left third toe. Hammertoe left fourth and fifth. Post-op diagnosis: Same Post-op findings: None Procedure done: Amputation at metatarsal phalangeal joint left third, fourth and fifth toes. CPT code 49395 x3 Implants: 4-0 Vicryl, 3-0 nylon. Specimens removed/disposition: None Pathology: Left third, fourth and fifth toe sent to pathology for permanent. Surgeon: None Laborer Syrup Machine: See intraoperative documentation Estimated blood loss: None 14 IV fluids: None Urine output: None Complications: None Findings: Devitalized bone left third toe distal phalanx Brief History: Patient has a history of great toe and second toe amputation of the left foot. He has osteomyelitis at the left third toe as well as a hammertoe of the left fourth and fifth. Determination was made to perform a amputation of left third, fourth and fifth toes, reasoning being that he will need a amputation of the left third toe as it is more definitive and curative option potentially for osteomyelitis involving the distal phalanx of the left third toe. After this amputation he will be left with toes 4 and 5 the both of hammertoe deformity will likely result in transfer pressure and new wound formation. Given the likelihood of issues in the future he would like to proceed with a amputation of left third, fourth and fifth toes. Risks include but not limited to pain, bleeding, numbness, infection, surgical site dehiscence, need for further surgical intervention, antibiotic therapy, wound care therapy, offloading and need for higher level of amputation should this fail. No guarantees written, expressed or implied. Patient wishes to proceed, n.p.o. since midnight. Informed consent signed by patient and myself. I initialed his left foot preoperatively. Procedure: Under mild sedation the patient was brought to the operating room and remained on the gurney in supine position. A timeout was performed. Anesthesia was then administered by the anesthesia service. Local anesthesia injected by myself utilizing one-to-one mixture 1% lidocaine and 0.25% Marcaine plain and a left third, fourth and fifth ray block fashion. Well-padded pneumatic tourniquet applied to the left ankle. Left lower extremity was then scrubbed, prepped and draped utilizing normal aseptic technique. Left foot was then elevated and the left ankle tourniquet inflated to 250 mmHg. Tension was directed to the left foot where a tennis racquet incision was performed with a #10 blade full-thickness encompassing the left third, fourth and fifth metatarsal phalangeal joints coursing laterally at the fifth metatarsal circumferentially. The left third, fourth and fifth metatarsal phalangeal joints were disarticulated with toes 3, 4 and 5 sent to pathology for permanent. Clean margins were appreciated intraoperatively with healthy viable metatarsal heads at the third, fourth and fifth metatarsals left foot. All bleeders were ligated and cauterized as necessary. Extensor and flexor tendons pulled under traction and transected at their proximal margin. Incision was irrigated with copious amounts of sterile skin solution followed by closure in a layered fashion utilizing 4-0 Vicryl at subcutaneous tissue and skin was closed with 3-0 nylon with excellent approximation without tension or strangulating the soft tissue. The incision site was then dressed with Adaptic, sterile 4 x 4, Kerlix, Geoff wrap and a cam boot was applied to the left foot. Tourniquet was deflated and a prompt hyperemic response was noted to the distal amputation stump of the left foot. Patient tolerated the procedure and anesthesia well and was transferred to the PACU with vital signs stable and vascular status intact. Following a period of postop monitoring he will be discharged home is to remain strict nonweightbearing to the left foot. He is to elevate the left foot while resting. Continue with Bactrim that was previously prescribed. Will follow-up in clinic next week for his first dressing change.
[2022-04-20 12:20] VITALS: BP 134/77; PULSE 56; RESP 16; O2SAT 98
[2022-04-20 12:26] VITALS: BP 98/71; PULSE 56; RESP 16; O2SAT 97
[2022-04-20 12:45] VITALS: BP 125/73; PULSE 55; RESP 18; TEMP 36.8; O2SAT 97
--- NOTE | 2022-04-20 15:09 | ANE.PACU2 ---
Inpatient post-anesthesia follow up: Airway intact: Yes Vital signs: Temperature 98.3 F Pulse Rate 55 Respiratory Rate 18 Blood Pressure 125/73 Pulse Oximetry 97 Oxygen Delivery Me thod Room Air Oxygen Flow Rate Fraction of Inspir ed Oxygen Hydration adequate: Yes Nausea and vomiting: No Pain level: 1 Mental status: Baseline
== END 2022-04-20 13:15 | disposition home or self-care (01) ==
PROVIDERS: PCP Family Medicine; Visit Provider Podiatrist Foot & Ankle Surgery
PROC: (CPT 28820; principal; 2022-04-20 11:20)
DX: M86.8X7 Other osteomyelitis, ankle and foot (principal); K21.9 Gastro-esophageal reflux disease without esophagitis; E11.621 Type 2 diabetes mellitus with foot ulcer; Z86.73 Personal history of transient ischemic attack (TIA), and cerebral infarction without residual deficits; Z79.82 Long term (current) use of aspirin; Z79.84 Long term (current) use of oral hypoglycemic drugs; E78.5 Hyperlipidemia, unspecified
CPT/HCPCS: 28820 ×3; 36416; 73620; 82962; 88305; 88311; J3490; J7030

== ENCOUNTER → 2022-05-03 10:50 | Outpatient (BNVA) | payer MEDICARE, SELFPAY | PROVIDERS: PCP Family Medicine; Visit Provider Podiatrist Foot & Ankle Surgery | DX: E11.42 Type 2 diabetes mellitus with diabetic polyneuropathy (principal); M20.41 Other hammer toe(s) (acquired), right foot; M20.42 Other hammer toe(s) (acquired), left foot; Z89.422 Acquired absence of other left toe(s); L84 Corns and callosities | CPT/HCPCS: 99213; 99214 ==

== ENCOUNTER → 2022-05-31 14:10 | Outpatient (BNVA) | payer MEDICARE, SELFPAY | PROVIDERS: PCP Family Medicine; Visit Provider Podiatrist Foot & Ankle Surgery | DX: E11.42 Type 2 diabetes mellitus with diabetic polyneuropathy (principal); M20.41 Other hammer toe(s) (acquired), right foot; Z89.422 Acquired absence of other left toe(s); L84 Corns and callosities | CPT/HCPCS: 99214 ==

== ENCOUNTER → 2022-07-23 11:28 | Outpatient (BNVA) | payer MEDICARE, SELFPAY | PROVIDERS: PCP Family Medicine; Visit Provider Podiatrist Foot & Ankle Surgery | DX: E11.42 Type 2 diabetes mellitus with diabetic polyneuropathy (principal); M20.41 Other hammer toe(s) (acquired), right foot; M20.42 Other hammer toe(s) (acquired), left foot; Z79.84 Long term (current) use of oral hypoglycemic drugs | CPT/HCPCS: 99214 ==

== ENCOUNTER → 2022-08-06 14:18 | Outpatient (BNVA) | payer MEDICARE, SELFPAY | PROVIDERS: PCP Family Medicine; Visit Provider Family Medicine | DX: E11.42 Type 2 diabetes mellitus with diabetic polyneuropathy (principal); I10 Essential (primary) hypertension; E78.5 Hyperlipidemia, unspecified; I77.810 Thoracic aortic ectasia | CPT/HCPCS: 83036 ==

== ENCOUNTER → 2023-01-04 10:39 | Outpatient (BNVA) | payer MEDICARE, SELFPAY | PROVIDERS: PCP Family Medicine; Visit Provider Podiatrist Foot & Ankle Surgery | DX: E11.621 Type 2 diabetes mellitus with foot ulcer (principal); L97.522 Non-pressure chronic ulcer of other part of left foot with fat layer exposed; E11.42 Type 2 diabetes mellitus with diabetic polyneuropathy; Z89.422 Acquired absence of other left toe(s); Z79.84 Long term (current) use of oral hypoglycemic drugs | CPT/HCPCS: 11042 ==

== ENCOUNTER → 2023-01-16 16:40 | Outpatient (BNVA) | payer MEDICARE, SELFPAY | PROVIDERS: PCP Family Medicine; Visit Provider Family Medicine | DX: E11.42 Type 2 diabetes mellitus with diabetic polyneuropathy (principal); E78.5 Hyperlipidemia, unspecified; I10 Essential (primary) hypertension | CPT/HCPCS: 80053; 80061; 83036; 85025 ==

== ENCOUNTER → 2023-01-29 07:56 | Outpatient (BNVA) | payer MEDICARE, SELFPAY | PROVIDERS: PCP Family Medicine; Visit Provider Podiatrist Foot & Ankle Surgery | DX: E11.42 Type 2 diabetes mellitus with diabetic polyneuropathy (principal); Z89.432 Acquired absence of left foot; Z79.84 Long term (current) use of oral hypoglycemic drugs | CPT/HCPCS: 99214 ==

== ENCOUNTER → 2023-03-12 08:55 | Outpatient (BNVA) | payer MEDICARE, SELFPAY | PROVIDERS: PCP Family Medicine; Visit Provider Podiatrist Foot & Ankle Surgery | DX: E11.621 Type 2 diabetes mellitus with foot ulcer (principal); L97.523 Non-pressure chronic ulcer of other part of left foot with necrosis of muscle; E11.42 Type 2 diabetes mellitus with diabetic polyneuropathy; Z89.432 Acquired absence of left foot; Z79.84 Long term (current) use of oral hypoglycemic drugs | CPT/HCPCS: 11043; 73630; 87070; 87075; 87077; 87186; 87205 ==

== ENCOUNTER → 2023-03-20 13:04 | Outpatient (BNVA) | payer MEDICARE, SELFPAY | PROVIDERS: PCP Family Medicine; Visit Provider Podiatrist Foot & Ankle Surgery | DX: E11.42 Type 2 diabetes mellitus with diabetic polyneuropathy (principal); Z89.422 Acquired absence of other left toe(s); Z79.84 Long term (current) use of oral hypoglycemic drugs | CPT/HCPCS: 99213 ==

== ENCOUNTER → 2023-04-10 07:41 | Outpatient (BNVA) | payer MEDICARE, SELFPAY | PROVIDERS: PCP Family Medicine; Visit Provider Podiatrist Foot & Ankle Surgery | DX: E11.42 Type 2 diabetes mellitus with diabetic polyneuropathy (principal); L97.521 Non-pressure chronic ulcer of other part of left foot limited to breakdown of skin; Z89.422 Acquired absence of other left toe(s); E11.621 Type 2 diabetes mellitus with foot ulcer; Z79.84 Long term (current) use of oral hypoglycemic drugs | CPT/HCPCS: 99214 ==

== ENCOUNTER → 2023-04-24 09:38 | Outpatient (BNVA) | payer MEDICARE, SELFPAY | PROVIDERS: PCP Family Medicine; Visit Provider Podiatrist Foot & Ankle Surgery | DX: E11.621 Type 2 diabetes mellitus with foot ulcer (principal); E11.42 Type 2 diabetes mellitus with diabetic polyneuropathy; L97.521 Non-pressure chronic ulcer of other part of left foot limited to breakdown of skin; Z89.422 Acquired absence of other left toe(s); Z79.84 Long term (current) use of oral hypoglycemic drugs | CPT/HCPCS: 99214 ==

== ENCOUNTER → 2023-05-01 10:43 | Outpatient (BNVA) | payer MEDICARE, SELFPAY | PROVIDERS: PCP Family Medicine; Visit Provider Podiatrist Foot & Ankle Surgery | DX: E11.621 Type 2 diabetes mellitus with foot ulcer (principal); Z89.422 Acquired absence of other left toe(s); Z79.84 Long term (current) use of oral hypoglycemic drugs; E11.42 Type 2 diabetes mellitus with diabetic polyneuropathy; L97.522 Non-pressure chronic ulcer of other part of left foot with fat layer exposed | CPT/HCPCS: 99214 ==

== ENCOUNTER → 2023-05-22 12:28 | Outpatient (BNVA) | payer MEDICARE, SELFPAY | PROVIDERS: PCP Family Medicine; Visit Provider Podiatrist Foot & Ankle Surgery | DX: E11.621 Type 2 diabetes mellitus with foot ulcer (principal); Z89.422 Acquired absence of other left toe(s); Z79.4 Long term (current) use of insulin; E11.42 Type 2 diabetes mellitus with diabetic polyneuropathy; L97.522 Non-pressure chronic ulcer of other part of left foot with fat layer exposed | CPT/HCPCS: 99214 ==

== ENCOUNTER → 2023-06-19 12:46 | Outpatient (BNVA) | payer MEDICARE, SELFPAY | PROVIDERS: PCP Family Medicine; Visit Provider Podiatrist Foot & Ankle Surgery | DX: E11.42 Type 2 diabetes mellitus with diabetic polyneuropathy (principal); L97.522 Non-pressure chronic ulcer of other part of left foot with fat layer exposed; E11.621 Type 2 diabetes mellitus with foot ulcer; Z89.422 Acquired absence of other left toe(s); Z79.84 Long term (current) use of oral hypoglycemic drugs | CPT/HCPCS: 99214 ==

== ENCOUNTER → 2023-07-10 12:57 | Outpatient (BNVA) | payer MEDICARE, SELFPAY | PROVIDERS: PCP Family Medicine; Visit Provider Podiatrist Foot & Ankle Surgery | DX: E11.42 Type 2 diabetes mellitus with diabetic polyneuropathy; L97.522 Non-pressure chronic ulcer of other part of left foot with fat layer exposed; E11.621 Type 2 diabetes mellitus with foot ulcer; Z89.422 Acquired absence of other left toe(s); Z79.84 Long term (current) use of oral hypoglycemic drugs | CPT/HCPCS: 11042 ==

== ENCOUNTER 2023-07-23 10:04 | Outpatient (CLI) | payer MEDICARE, MEDICAID, SELFPAY ==
--- NOTE | 2023-07-23 10:30 | USCV_ITS ---
Jerson Francis Age: 73 Gender: M : 1950 Exam Date: 07/23/2023 10:15 Ordering Phys: Eugenio Moreno DPM Technologist: [place] [facility] Indication: lt toes removes RIGHT LEFT Brachial 153.00 mmHg Brachial 153.00 mmHg Pressure (mmHg) Waveform Pressure (mmHg) Waveform 152.00 HEARING CONSULTANT 168.00 152.00 DPA 137.00 1.00 Ankle/Brachial Index 1.10 129.00 Pre-Exercise Toe Pressure 0.84 Pre-Exercise Toe/Brachial Index FINDINGS Resting JANKI 1.0 on the right and 1.1 on the left Resting TBI of 0.84 on the right side. Resting TBI on the left side could not be obtained. CONCLUSIONS 1. Normal resting JANKI and TBI on the right side, suggesting no significant arterial obstruction. 2. Normal resting JANKI on the left side. The left TBI was not be performed Dr Lili Conrad MD [facility] (Electronically Signed) Final Date: 24 July 2023 01:15 S
== END 2023-07-23 10:05 | disposition home or self-care (01) ==
LOC: RAD 10:06
PROVIDERS: PCP Family Medicine; Visit Provider Podiatrist Foot & Ankle Surgery
DX: Z01.818 Encounter for other preprocedural examination (principal)
CPT/HCPCS: 93922

== ENCOUNTER → 2023-07-24 13:38 | Outpatient (BNVA) | payer MEDICARE, MEDICAID, SELFPAY | PROVIDERS: PCP Family Medicine; Visit Provider Podiatrist Foot & Ankle Surgery | DX: E11.621 Type 2 diabetes mellitus with foot ulcer (principal); L97.522 Non-pressure chronic ulcer of other part of left foot with fat layer exposed; E11.42 Type 2 diabetes mellitus with diabetic polyneuropathy; Z89.422 Acquired absence of other left toe(s); Z79.84 Long term (current) use of oral hypoglycemic drugs | CPT/HCPCS: 11042 ==

== ENCOUNTER → 2023-08-05 12:52 | Outpatient (BNVA) | payer MEDICARE, MEDICAID, SELFPAY | PROVIDERS: PCP Family Medicine; Visit Provider Podiatrist Foot & Ankle Surgery | DX: E11.42 Type 2 diabetes mellitus with diabetic polyneuropathy (principal); L97.522 Non-pressure chronic ulcer of other part of left foot with fat layer exposed; E11.621 Type 2 diabetes mellitus with foot ulcer; Z89.422 Acquired absence of other left toe(s); Z79.84 Long term (current) use of oral hypoglycemic drugs | CPT/HCPCS: 99214 ==

== ENCOUNTER → 2023-10-22 09:02 | Outpatient (BNVA) | payer MEDICARE, MEDICAID, SELFPAY | PROVIDERS: PCP Family Medicine; Visit Provider Nurse Practitioner Family | DX: E11.52 Type 2 diabetes mellitus with diabetic peripheral angiopathy with gangrene (principal); E11.621 Type 2 diabetes mellitus with foot ulcer; L89.892 Pressure ulcer of other site, stage 2 | CPT/HCPCS: 11042; 99213; A6210 ==

== ENCOUNTER → 2023-11-04 11:47 | Outpatient (BNVA) | payer MEDICARE, MEDICAID, SELFPAY | PROVIDERS: PCP Family Medicine; Visit Provider Nurse Practitioner Family | DX: E11.621 Type 2 diabetes mellitus with foot ulcer (principal); E11.52 Type 2 diabetes mellitus with diabetic peripheral angiopathy with gangrene; L97.422 Non-pressure chronic ulcer of left heel and midfoot with fat layer exposed | CPT/HCPCS: 11042; A6210 ==

== ENCOUNTER → 2024-04-14 14:10 | Outpatient (BNVA) | payer MEDICARE, MEDICAID, SELFPAY | PROVIDERS: PCP Family Medicine; Visit Provider Thoracic Surgery (Cardiothoracic Vascular Surgery) | DX: E11.52 Type 2 diabetes mellitus with diabetic peripheral angiopathy with gangrene (principal); E11.621 Type 2 diabetes mellitus with foot ulcer; L97.521 Non-pressure chronic ulcer of other part of left foot limited to breakdown of skin | CPT/HCPCS: 97597; 99213; A6210 ==

== ENCOUNTER → 2024-04-23 10:41 | Outpatient (BNVA) | payer MEDICARE, MEDICAID, SELFPAY | PROVIDERS: PCP Family Medicine; Visit Provider Thoracic Surgery (Cardiothoracic Vascular Surgery) | DX: E11.52 Type 2 diabetes mellitus with diabetic peripheral angiopathy with gangrene (principal); E11.621 Type 2 diabetes mellitus with foot ulcer; L97.521 Non-pressure chronic ulcer of other part of left foot limited to breakdown of skin | CPT/HCPCS: 97597; A6210 ==

== ENCOUNTER → 2024-05-12 10:26 | Outpatient (BNVA) | payer MEDICARE, MEDICAID, SELFPAY | PROVIDERS: PCP Family Medicine; Visit Provider Thoracic Surgery (Cardiothoracic Vascular Surgery) | DX: E11.52 Type 2 diabetes mellitus with diabetic peripheral angiopathy with gangrene (principal); E11.621 Type 2 diabetes mellitus with foot ulcer; L97.521 Non-pressure chronic ulcer of other part of left foot limited to breakdown of skin | CPT/HCPCS: 97597 ==

== ENCOUNTER → 2024-05-25 15:08 | Outpatient (BNVA) | payer MEDICARE, MEDICAID, SELFPAY | PROVIDERS: PCP Family Medicine; Visit Provider Thoracic Surgery (Cardiothoracic Vascular Surgery) | DX: E11.52 Type 2 diabetes mellitus with diabetic peripheral angiopathy with gangrene (principal); E11.621 Type 2 diabetes mellitus with foot ulcer; L97.521 Non-pressure chronic ulcer of other part of left foot limited to breakdown of skin | CPT/HCPCS: 97597 ==

== ENCOUNTER → 2024-06-11 13:57 | Outpatient (BNVA) | payer MEDICARE, MEDICAID, SELFPAY | PROVIDERS: PCP Family Medicine; Visit Provider Thoracic Surgery (Cardiothoracic Vascular Surgery) | DX: E11.52 Type 2 diabetes mellitus with diabetic peripheral angiopathy with gangrene (principal); E11.621 Type 2 diabetes mellitus with foot ulcer; L97.521 Non-pressure chronic ulcer of other part of left foot limited to breakdown of skin | CPT/HCPCS: 97597; A6210 ==

== ENCOUNTER → 2024-07-01 14:44 | Outpatient (BNVA) | payer MEDICARE, MEDICAID, SELFPAY | PROVIDERS: PCP Nurse Practitioner Family; Visit Provider Nurse Practitioner Family | DX: I10 Essential (primary) hypertension (principal); E11.621 Type 2 diabetes mellitus with foot ulcer; L97.509 Non-pressure chronic ulcer of other part of unspecified foot with unspecified severity | CPT/HCPCS: 80053; 80061; 82043; 83036; 85025 ==

== ENCOUNTER → 2024-07-09 13:51 | Outpatient (BNVA) | payer MEDICARE, MEDICAID, SELFPAY | PROVIDERS: PCP Nurse Practitioner Family; Visit Provider Thoracic Surgery (Cardiothoracic Vascular Surgery) | DX: E11.52 Type 2 diabetes mellitus with diabetic peripheral angiopathy with gangrene (principal); E11.621 Type 2 diabetes mellitus with foot ulcer; L97.521 Non-pressure chronic ulcer of other part of left foot limited to breakdown of skin | CPT/HCPCS: 97597 ==

== ENCOUNTER 2024-07-23 13:59 | Outpatient (CLI) | payer MEDICARE, MEDICAID, SELFPAY ==
--- NOTE | 2024-07-23 14:06 | XR_ITS ---
WS: [id number] Exam: XR foot LT min 3V* [id number] Date/Time of Exam: 07/23/2024 2:07 PM Reason For Exam: E11.621 - Type 2 diabetes mellitus with foot ulcer Comparison 03/12/2023. The toes have been amputated. There is edema of the amputation stump. The remaining bony structures o f the foot show no evidence of fracture or bone destruction. Small heel spurs noted. Mild degenerativ e changes in the midfoot joints. No opaque foreign bodies. XR/XR foot LT min 3V* [id number] IMPRESSION: 1. No fracture or bone destruction identified. 2. Amputation of the toes with edema of the amputation stump.
== END 2024-07-23 14:00 | disposition home or self-care (01) ==
PROVIDERS: PCP Nurse Practitioner Family; Visit Provider Thoracic Surgery (Cardiothoracic Vascular Surgery)
DX: E11.621 Type 2 diabetes mellitus with foot ulcer (principal); L97.509 Non-pressure chronic ulcer of other part of unspecified foot with unspecified severity; Z89.422 Acquired absence of other left toe(s)
CPT/HCPCS: 73630; 97597

== ENCOUNTER → 2024-07-29 14:15 | Outpatient (BNVA) | payer MEDICARE, MEDICAID, SELFPAY | PROVIDERS: PCP Nurse Practitioner Family; Visit Provider Thoracic Surgery (Cardiothoracic Vascular Surgery) | DX: E11.621 Type 2 diabetes mellitus with foot ulcer; E11.52 Type 2 diabetes mellitus with diabetic peripheral angiopathy with gangrene; L97.526 Non-pressure chronic ulcer of other part of left foot with bone involvement without evidence of necrosis | CPT/HCPCS: 87070; 87176; 87205; 97597 ==

== ENCOUNTER → 2024-08-05 14:05 | Outpatient (BNVA) | payer MEDICARE, MEDICAID, SELFPAY | PROVIDERS: PCP Nurse Practitioner Family; Visit Provider Thoracic Surgery (Cardiothoracic Vascular Surgery) | DX: E11.621 Type 2 diabetes mellitus with foot ulcer (principal); E11.52 Type 2 diabetes mellitus with diabetic peripheral angiopathy with gangrene; L97.526 Non-pressure chronic ulcer of other part of left foot with bone involvement without evidence of necrosis | CPT/HCPCS: 87070; 87176; 87205; 97597 ==

== ENCOUNTER → 2024-08-12 13:29 | Outpatient (BNVA) | payer MEDICARE, MEDICAID, SELFPAY | PROVIDERS: PCP Nurse Practitioner Family; Visit Provider Thoracic Surgery (Cardiothoracic Vascular Surgery) | DX: E11.52 Type 2 diabetes mellitus with diabetic peripheral angiopathy with gangrene (principal); E11.621 Type 2 diabetes mellitus with foot ulcer; L97.526 Non-pressure chronic ulcer of other part of left foot with bone involvement without evidence of necrosis | CPT/HCPCS: 97597 ==

== ENCOUNTER 2024-08-14 08:04 | Outpatient (CLI) | payer MEDICARE, SELFPAY ==
--- NOTE | 2024-08-14 08:30 | NM_ITS ---
WS: [id number] THREE-PHASE BONE SCAN HISTORY: R/O osteo, non healing wound COMPARISON: LEFT foot radiograph 07/23/2024 Patient is is injected with 25.6 mCi Tc99m HDP intravenously. Immediate angiographic phase imaging is performed over the area of concern. Static blood pool imaging also performed. Two-hour whole-body sc intigrams performed in anterior and posterior projections. Additional large field of view imaging sub mitted as necessary. Three-phase bone scan centered over the feet. There is marked intense uptake involving the LEFT foot centered in the soft tissues distal to the met atarsal heads. Patient is status post amputation of all 5 toes. On the blood pool phase imaging and a ngiographic imaging the intense uptake is centered around the mid to distal first and second metatars als and the adjacent soft tissues. On the delayed imaging there is marked increase uptake involving t he first metatarsal head. Mild RIGHT AC joint arthritis. Mild arthropathy at the ankles. Normal soft tissue uptake and renal up take. Degenerative disc and facet joint disease in the cervical spine. NM/NM bone 3 phase [id number] IMPRESSION: 1. Cellulitis involving the amputation sites distal to the first and second me tatarsals and surrounding the mid to distal metatarsals. 2. Focal area of intense uptake consistent with osteomyelitis involving the fi rst LEFT metatarsal head.
== END 2024-08-14 08:05 | disposition home or self-care (01) ==
LOC: RAD 08:04
PROVIDERS: PCP Nurse Practitioner Family; Visit Provider Thoracic Surgery (Cardiothoracic Vascular Surgery)
DX: L97.522 Non-pressure chronic ulcer of other part of left foot with fat layer exposed (principal); E11.42 Type 2 diabetes mellitus with diabetic polyneuropathy; L03.032 Cellulitis of left toe; M86.172 Other acute osteomyelitis, left ankle and foot
CPT/HCPCS: 78315; A9561

== ENCOUNTER → 2024-08-19 12:53 | Outpatient (BNVA) | payer MEDICARE, SELFPAY | PROVIDERS: PCP Nurse Practitioner Family; Visit Provider Thoracic Surgery (Cardiothoracic Vascular Surgery) | DX: E11.52 Type 2 diabetes mellitus with diabetic peripheral angiopathy with gangrene (principal); E11.621 Type 2 diabetes mellitus with foot ulcer; L97.521 Non-pressure chronic ulcer of other part of left foot limited to breakdown of skin | CPT/HCPCS: 97597 ==

== ENCOUNTER → 2024-08-26 11:36 | Outpatient (BNVA) | payer MEDICARE, MEDICAID, SELFPAY | PROVIDERS: PCP Nurse Practitioner Family; Visit Provider Podiatrist Foot & Ankle Surgery | DX: L97.523 Non-pressure chronic ulcer of other part of left foot with necrosis of muscle (principal); E11.42 Type 2 diabetes mellitus with diabetic polyneuropathy; E11.621 Type 2 diabetes mellitus with foot ulcer; Z79.84 Long term (current) use of oral hypoglycemic drugs | CPT/HCPCS: 36415; 73630; 80053; 85025; 85651; 86140; 99213 ==

== ENCOUNTER 2024-09-04 13:38 | Outpatient (CLI) | payer MEDICARE, SELFPAY ==
--- NOTE | 2024-09-04 14:30 | MRR_ITS ---
PROCEDURE INFORMATION: Exam: MR Left Lower Extremity Without and With Contrast; Forefoot Exam date and time: 09/04/2024 2:36 PM Age: 74 years old Clinical indication: Condition or disease; Other: Wound; Prior surgery; Surgery date: 6+ months; Surgery type: Amputation of all toes; Additional info: Wound to left sub1, check for infection to bone TECHNIQUE: Imaging protocol: MR of the left foot without and with contrast. Exam focused on the forefoot. Contrast material: MULTIHANCE; Contrast volume: 20 ml; Contrast route: INTRAVENOUS (IV); COMPARISON: CR XR foot LT min 3V* [id number] 08/26/2024 11:46 AM FINDINGS: Bones/joints: Patient is status post amputation 1st through 5th digits at the level of the MTP joints. Bony edema with infiltration of the marrow fat signal intensity consistent with osteomyelitis is identified in the plantar distal 3 cm 1st metatarsal and in the bilateral sesamoid bones. No bony destruction or osteomyelitis of the remaining metatarsals. Degenerative type signal abnormalities are noted involving the distal talus, navicular and cuneiform bones with bone marrow edema and subchondral cysts. No fracture or dislocation. LIGAMENTS: Collateral ligaments of digits: Unremarkable. No evidence of tear. TENDONS: Flexor tendons of foot: There is distal flexor hallucis tendinopathy but no tenosynovitis, abscess or phlegmon is tracking along the flexor tendon. Extensor tendons of foot: Unremarkable. No evidence of tear. Soft tissues: There is a skin defect/ulcer of the soft tissues plantar to the 1st metatarsal head. There is skin thickening and edema of the forefoot especially adjacent to the abnormal 1st metatarsal. There is a irregular fluid collection dorsal to the distal 1st metatarsal with serpiginous tract extending to the plantar skin surface concerning for abscess measuring 3.2 cm medial to lateral and 0.4 cm in thickness. There is mild edema of the soft tissues and muscles of the medial midfoot compatible with cellulitis/myositis and reactive changes without additional fluid collection or abscess. MR/MR foot LT wo/w con [id number] IMPRESSION: 1. Osteomyelitis of the plantar distal 3 cm 1st metatarsal and in the bilateral sesamoid bones. 2. There is a irregular fluid collection dorsal to the distal 1st metatarsal with serpiginous tract extending to the plantar skin surface concerning for abscess measuring 3.2 cm medial to lateral and 0.4 cm in thickness. 3. Ulcer plantar to 1st metatarsal head with cellulitis. No additional abcess.
[2024-09-04] MEDS: gadobenate dimeglumine 20 mL vial IV (15:51)
== END 2024-09-04 13:39 | disposition home or self-care (01) ==
LOC: RAD 13:40
PROVIDERS: PCP Family Medicine; Visit Provider Podiatrist Foot & Ankle Surgery
DX: L97.523 Non-pressure chronic ulcer of other part of left foot with necrosis of muscle (principal); E11.42 Type 2 diabetes mellitus with diabetic polyneuropathy; Z89.429 Acquired absence of other toe(s), unspecified side; M86.172 Other acute osteomyelitis, left ankle and foot; M25.475 Effusion, left foot
CPT/HCPCS: 73720

== ENCOUNTER → 2024-09-10 08:46 | Outpatient (BNVA) | payer MEDICARE, MEDICAID, SELFPAY | PROVIDERS: PCP Family Medicine; Visit Provider Podiatrist Foot & Ankle Surgery | DX: E11.42 Type 2 diabetes mellitus with diabetic polyneuropathy; L97.524 Non-pressure chronic ulcer of other part of left foot with necrosis of bone; E11.621 Type 2 diabetes mellitus with foot ulcer; M86.8X7 Other osteomyelitis, ankle and foot; Z79.84 Long term (current) use of oral hypoglycemic drugs | CPT/HCPCS: 99214 ==

== ENCOUNTER 2024-09-25 10:04 | Day surgery (SDC) | payer MEDICARE, MEDICAID, SELFPAY ==
[2024-09-25 10:27] VITALS: BP 119/77; PULSE 52; RESP 17; TEMP 36.8; O2SAT 97; BMI 26.7
[2024-09-25 10:51] LABS: Glucose Point of Care 89 mg/dL (70-110)
[2024-09-25] MEDS: sodium chloride 0.9% 1,000 ML 30 ML IV (10:53)
--- NOTE | 2024-09-25 12:40 | ANES.PREANE2 ---
Pre-Anesthetic Assessment Height/Weight: Height 1.8 m Weight 87.09 kg Temp Pulse Resp BP Pulse Ox O2 Del Method 98.3 F 52 L 17 119/77 97 Room Air 09/25/24 10:27 09/25/24 10:27 09/25/24 10:27 09/25/24 10:27 09/25/24 10:27 09/25/24 10:27 Preop Diagnosis: Osteomyelitis left foot Operation Date: 09/25/24 12:00 Proposed Procedures p Incision And Drainage Incision of Bone Cortex(Left) - Eugenio Moreno DPM Familial anesthetic complications: None Was Beta Keith taken within 24 hours: N/A Was Clonidine taken within 24 hours: N/A Last intake: Intake Last Liquid Date 09/24/24 Last Liquid Time 20:00 Last Solid Date 09/24/24 Last Solid Time 19:30 Social No alcohol and No tobacco Exam alert, oriented x 3, clear to auscultation bilaterally and regular rate & rhythm Airway Mallampati: Class III Dentition: false Pulmonary hx atelectasis CV/HEM Hypertension Metabolic Diabetes Mellitus and Hyperlipidemia Neuropsych Cerebrovascular Accident Anesthetic Plan ASA status: 3 Anesthesia: MAC Risk of > 500 ml blood loss (7ml/kg in children): No Medications/Allergies Home Medications Medication Instructions Recorded Confirmed Last Taken Type brimonidine 0.1 % eye drops 1 drop ophthalmic (eye) BID 01/15/20 09/25/24 09/24/24 History latanoprost 0.005 % eye drops 1 drop ophthalmic (eye) BEDTIME 01/15/20 09/25/24 09/24/24 History dorzolamide 22.3 mg-timolol 6.8 1 drp ophthalmic (eye) BID 03/19/21 09/25/24 09/25/24 History mg/mL eye drops aspirin 81 mg tablet,delayed 81 mg PO DAILY SEE PHARMACY 06/25/22 09/25/24 09/23/24 Rx release (Adult Aspirin Regimen) COMMENT #30 tabs Diabetic Shoes with toe filler to #1 ea 01/16/23 09/10/24 Unknown Rx left and 3 sets of inserts Diabetic shoes with 3 inserts #1 ea 01/16/23 09/10/24 Unknown Rx metformin 500 mg tablet See Rx Instructions .Route 10/01/23 09/25/24 09/24/24 Rx .COMPLEX #180 tabs Allergies Allergy/AdvReac Type Severity Reaction Status Date / Time Penicillins Allergy Mild ALGY-Rash Verified 09/24/24 09:44 Current Medications Generic Name Dose Route Start Last Admin Trade Name Nancy PRN Reason Stop Dose Admin Sodium Chloride 1,000 mls @ 30 mls/hr 09/25/24 10:15 09/25/24 10:53 Sodium Chloride 0.9% IV 09/26/24 10:14 30 mls/hr .Q24H VERONICA Administration PFSH Anesthesia Medical History Osteomyelitis of toe of left foot Gangrene of toe of left foot Diabetic peripheral neuropathy associated with type 2 diabetes mellitus Pathological fracture of toe Toe infection Blind right eye Cataract Glaucoma Diabetic toe ulcer Hyperlipidemia Ischemic stroke Urge incontinence of urine Sinus bradycardia 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
--- NOTE | 2024-09-25 12:42 | W.PM.OPSUD ---
Surgery/Procedure H&P Update DATE OF PROCEDURE: September 25, 2024 DATE H&P PERFORMED: 09/10/24 H&P UPDATE INFORMATION: I have reviewed H&P completed within last 30 days, I have examined patient prior to procedure, No changes to prior documentation and H&P is in [facility] [place] [facility] on date indicated PREOP DIAGNOSIS: Osteomyelitis left foot PLANNED PROCEDURE: Operation Date: 09/25/24 12:00 Proposed Procedures p Incision And Drainage Incision of Bone Cortex(Left) - Eugenio Moreno DPM
[2024-09-25] MEDS: clindamycin 600 MG/50 ML PREMIX 100 MG IV (12:54)
[2024-09-25] MEDS: lidocaine 2% INJ 20 mL 30 ML INJECTION (13:12)
[2024-09-25 13:33] VITALS: BP 111/60; PULSE 55; RESP 16; TEMP 36.2; O2SAT 97
--- NOTE | 2024-09-25 13:33 | W.PM.BPON ---
date of Procedure: 02/07/24 Surgeon: Eugenio Moreno DPM Paving Stone Installer(s): Miranda Procedure(s) performed: Left Achilles lengthening, left sesamoid excision, incision of bone cortex left first metatarsal. Findings of the procedure(s): Devitalized bone left first metatarsal phalangeal joint Estimated blood loss: 2 mL Specimen(s) removed: Sesamoids from left foot sent to microbiology Post-operative diagnosis: Osteomyelitis left foot, equinus left ankle
--- NOTE | 2024-09-25 13:35 | PM.OP ---
Operative Report Date of procedure: September 25, 2024 Pre-op diagnosis: Osteomyelitis left foot L97.524 Sesamoiditis left foot M86.8X9 Post-op diagnosis: Osteomyelitis left foot L97.524 Sesamoiditis left foot M86.8X9 Procedure done: 1) incision of bone cortex left foot. CPT code 98769 2) sesamoidectomy left foot. CPT code 34883 Implants: 3-0 Vicryl, 4-0 nylon Specimens removed/disposition: Bone left foot sent to microbiology for Gram stain, culture and sensitivity Pathology: none Surgeon: Eugenio Moreno DPM Management Instructor: Miranda Estimated blood loss: 2 22 IV fluids: See intraoperative documentation Urine output: No urine output Complications: No complications Findings: Devitalized bone at tibial and fibular sesamoid of the left foot, devitalized bone at the inferior portion of the first metatarsal head left foot Brief History: 74-year-old male with history of chronic non-healing foot wound presenting with suspected osteomyelitis. The MRI findings confirm the presence of bone infection. Current status indicates the infection remains controlled without systemic symptoms but persists locally with involvement of the first metatarsal bone. I reviewed at length with the patient, the risks, potential complications, benefits, alternatives, expectations, and typical outcomes associated with the surgery. The risks and potential complications were explained in detail, including but not limited to infection, wound dehiscence or soft tissue complications, bleeding and hematoma, chronic edema, neuritis or nerve damage producing numbness or chronic pain, CRPS, failure to relieve pain or worsening pain, thick / painful / unsightly scar, limited motion / stiffness, malposition, delayed union, malunion, or nonunion, fracture, reaction to implants, anesthetic complications, venous thromboembolism, and deformity recurrence. I discussed the notion of no regrets with the patient as it pertains to complications and outcomes. The patient seemed to understand the nature of the proposed care and required convalescence. They asked appropriate questions, answered to their satisfaction. They are aware no guarantees can be made as to a satisfactory outcome and they understand there may be other possible unforeseen complications or outcomes not listed here that will be treated accordingly if they arise. There were no written or implied guarantees given to the patient. They gave informed consent to proceed. Procedure: Under mild sedation the patient was brought to the operating room and remained on the gurney in supine position. A timeout was performed. Anesthesia was then administered by the anesthesia service. Local anesthesia injected by myself consisting of a left male block with one-to-one mixture of lidocaine Marcaine, 1% lidocaine and 0.25% Marcaine plain. Well-padded pneumatic tourniquet applied to the left ankle. The left lower extremity was scrubbed, prepped and draped utilizing normal aseptic technique. No Esmarch bandage utilized. Left foot was elevated and ankle tourniquet inflated to 250 mmHg. Attention was directed to the left plantar forefoot where a wound was appreciated subfirst metatarsal head this is a chronic wound been present for almost 1 year, the wound was full-thickness and measured approximately 1.2 cm x 2.2 cm x 0.4 cm, wound probed to the tibial and fibular sesamoid. An incision was performed at the dorsal medial aspect of the left first metatarsal phalangeal joint full-thickness down to bone and the tibial and fibular sesamoids were identified and sharply excised from the left foot utilizing pickups and a #15 blade, the tibial and fibular sesamoid were noted to be devitalized and of of poor density and off yellow and cyr color consistent with osteomyelitis. The incision was irrigated with copious amounts of sterile saline solution. Attention was directed to the inferior surface of the first metatarsal head of the left foot and incision was performed down to bone cortex which was noted to be devitalized at the most inferior portion that was in contact with sesamoids, this was incised sharply and debrided with #15 blade and rongeur followed by all rough edges being smoothed with a hand rasp. After incision of bone cortex was carried out sharply remaining bone appeared to have appropriate color and density and bleeding and appeared viable, no other devitalized tissue appreciated at this time. The incision was irrigated with saline solution and closed in a layered fashion. Deep tissue reapproximated with 3-0 Vicryl and skin with 4-0 nylon, the incision was then dressed with Adaptic along with the plantar wound dressed with Adaptic, sterile 4 x 4 gauze, Kerlix and Geoff wrap followed by application of a cam boot to the left lower extremity. Tourniquet was deflated and a prompt hyperemic response is noted to the distal digits of the left foot. Patient tolerated the procedure and anesthesia well and was transferred to the PACU with vital signs stable and vascular status intact. Following a period of postoperative monitoring be discharged home was advised to be nonweightbearing to the left foot, elevate left foot while resting. Bactrim DS will be continued at this time and may be adjusted once cultures yield further information. Was given at home care instructions and scheduled follow-up
[2024-09-25 13:38] VITALS: BP 118/74; PULSE 59; RESP 16; O2SAT 99
[2024-09-25 13:43] VITALS: BP 130/73; PULSE 53; RESP 16; O2SAT 99
[2024-09-25 13:48] VITALS: BP 124/74; PULSE 53; RESP 16; TEMP 36.2; O2SAT 100
[2024-09-25 14:00] VITALS: BP 129/77; PULSE 51; RESP 17; O2SAT 97
--- NOTE | 2024-09-25 14:55 | ANE.PACU2 ---
Inpatient post-anesthesia follow up: Airway intact: Yes Vital signs: Temperature 97.2 F Pulse Rate 51 Respiratory Rate 17 Blood Pressure 129/77 Pulse Oximetry 97 Oxygen Delivery Me thod Room Air Oxygen Flow Rate Fraction of Inspir ed Oxygen Hydration adequate: Yes Nausea and vomiting: No Pain level: 1 Mental status: Baseline
== END 2024-09-25 14:54 | disposition home or self-care (01) ==
PROVIDERS: PCP Family Medicine; Visit Provider Podiatrist Foot & Ankle Surgery
PROC: (CPT 28005; principal; 2024-09-25 11:50)
DX: L97.524 Non-pressure chronic ulcer of other part of left foot with necrosis of bone (principal); M25.872 Other specified joint disorders, left ankle and foot; I10 Essential (primary) hypertension; E11.9 Type 2 diabetes mellitus without complications; E78.5 Hyperlipidemia, unspecified; Z86.73 Personal history of transient ischemic attack (TIA), and cerebral infarction without residual deficits; Z87.891 Personal history of nicotine dependence; Z79.82 Long term (current) use of aspirin
CPT/HCPCS: 28005; 28315; 36416; 82962; 87070; 87075; 87077; 87176; 87186; 87205; J2704; J3490; J7030

== ENCOUNTER → 2024-09-28 10:31 | Outpatient (BNVA) | payer MEDICARE, SELFPAY | PROVIDERS: PCP Family Medicine; Visit Provider Podiatrist Foot & Ankle Surgery | DX: Z98.890 Other specified postprocedural states (principal); E11.42 Type 2 diabetes mellitus with diabetic polyneuropathy; M86.9 Osteomyelitis, unspecified; L97.524 Non-pressure chronic ulcer of other part of left foot with necrosis of bone; E11.621 Type 2 diabetes mellitus with foot ulcer; Z79.84 Long term (current) use of oral hypoglycemic drugs | CPT/HCPCS: 99024 ==

== ENCOUNTER → 2024-10-08 14:42 | Outpatient (BNVA) | payer MEDICARE, SELFPAY | PROVIDERS: PCP Family Medicine; Visit Provider Podiatrist Foot & Ankle Surgery | DX: E11.42 Type 2 diabetes mellitus with diabetic polyneuropathy (principal); M86.9 Osteomyelitis, unspecified; L97.524 Non-pressure chronic ulcer of other part of left foot with necrosis of bone; Z91.199 Patient's noncompliance with other medical treatment and regimen due to unspecified reason; E11.621 Type 2 diabetes mellitus with foot ulcer; Z79.84 Long term (current) use of oral hypoglycemic drugs | CPT/HCPCS: 11042 ==

== ENCOUNTER → 2024-10-26 12:27 | Outpatient (BNVA) | payer MEDICARE, SELFPAY | PROVIDERS: PCP Family Medicine; Visit Provider Podiatrist Foot & Ankle Surgery | DX: E11.42 Type 2 diabetes mellitus with diabetic polyneuropathy (principal); L97.524 Non-pressure chronic ulcer of other part of left foot with necrosis of bone; E11.621 Type 2 diabetes mellitus with foot ulcer; M86.8X7 Other osteomyelitis, ankle and foot; Z79.84 Long term (current) use of oral hypoglycemic drugs | CPT/HCPCS: 11042; 99213 ==

== ENCOUNTER → 2024-12-29 09:30 | Outpatient (BNVA) | payer MEDICARE, SELFPAY | PROVIDERS: PCP Family Medicine; Visit Provider Family Medicine | DX: E11.42 Type 2 diabetes mellitus with diabetic polyneuropathy (principal); E11.621 Type 2 diabetes mellitus with foot ulcer; L97.529 Non-pressure chronic ulcer of other part of left foot with unspecified severity | CPT/HCPCS: 83036 ==

== ENCOUNTER → 2025-01-20 10:47 | Outpatient (BNVA) | payer MEDICARE, SELFPAY | PROVIDERS: PCP Family Medicine; Visit Provider Podiatrist Foot & Ankle Surgery | DX: E11.42 Type 2 diabetes mellitus with diabetic polyneuropathy (principal); Z89.432 Acquired absence of left foot; Z79.84 Long term (current) use of oral hypoglycemic drugs | CPT/HCPCS: 99213 ==

== ENCOUNTER → 2025-03-08 09:39 | Outpatient (BNVA) | payer MEDICARE, SELFPAY | PROVIDERS: PCP Family Medicine; Visit Provider Podiatrist Foot & Ankle Surgery | DX: E11.621 Type 2 diabetes mellitus with foot ulcer (principal); L97.523 Non-pressure chronic ulcer of other part of left foot with necrosis of muscle; E11.42 Type 2 diabetes mellitus with diabetic polyneuropathy; Z89.432 Acquired absence of left foot; Z79.84 Long term (current) use of oral hypoglycemic drugs | CPT/HCPCS: 11043 ==

== ENCOUNTER → 2025-03-22 09:45 | Outpatient (BNVA) | payer MEDICARE, SELFPAY | PROVIDERS: PCP Family Medicine; Visit Provider Podiatrist Foot & Ankle Surgery | DX: E11.621 Type 2 diabetes mellitus with foot ulcer (principal); L97.523 Non-pressure chronic ulcer of other part of left foot with necrosis of muscle; E11.42 Type 2 diabetes mellitus with diabetic polyneuropathy; Z89.439 Acquired absence of unspecified foot | CPT/HCPCS: 99213 ==

== ENCOUNTER → 2025-04-14 08:22 | Outpatient (BNVA) | payer MEDICARE, SELFPAY | PROVIDERS: PCP Family Medicine; Visit Provider Podiatrist Foot & Ankle Surgery | DX: L97.523 Non-pressure chronic ulcer of other part of left foot with necrosis of muscle (principal) | CPT/HCPCS: 87070; 87075; 87205 ==

== ENCOUNTER → 2025-04-21 07:33 | Outpatient (BNVA) | payer MEDICARE, SELFPAY | PROVIDERS: PCP Family Medicine; Visit Provider Podiatrist Foot & Ankle Surgery | DX: E11.621 Type 2 diabetes mellitus with foot ulcer (principal); L97.523 Non-pressure chronic ulcer of other part of left foot with necrosis of muscle; E11.42 Type 2 diabetes mellitus with diabetic polyneuropathy; L03.116 Cellulitis of left lower limb; Z89.432 Acquired absence of left foot; Z79.84 Long term (current) use of oral hypoglycemic drugs | CPT/HCPCS: 99213 ==

== ENCOUNTER → 2025-05-05 09:53 | Outpatient (BNVA) | payer MEDICARE, SELFPAY | PROVIDERS: PCP Family Medicine; Visit Provider Podiatrist Foot & Ankle Surgery | DX: E11.42 Type 2 diabetes mellitus with diabetic polyneuropathy (principal); L97.523 Non-pressure chronic ulcer of other part of left foot with necrosis of muscle; Z89.432 Acquired absence of left foot; Z79.84 Long term (current) use of oral hypoglycemic drugs | CPT/HCPCS: 99213 ==

== ENCOUNTER → 2025-06-02 10:19 | Outpatient (BNVA) | payer MEDICARE, SELFPAY | PROVIDERS: PCP Family Medicine; Visit Provider Podiatrist Foot & Ankle Surgery | DX: E11.42 Type 2 diabetes mellitus with diabetic polyneuropathy (principal); L60.8 Other nail disorders; Z89.432 Acquired absence of left foot; Z79.84 Long term (current) use of oral hypoglycemic drugs | CPT/HCPCS: 11720; 99213 ==

== ENCOUNTER → 2025-07-29 10:01 | Outpatient (BNVA) | payer MEDICARE, SELFPAY | PROVIDERS: PCP Family Medicine; Visit Provider Podiatrist Foot & Ankle Surgery | DX: E11.42 Type 2 diabetes mellitus with diabetic polyneuropathy (principal); L84 Corns and callosities; L60.3 Nail dystrophy; Z89.432 Acquired absence of left foot; Z79.84 Long term (current) use of oral hypoglycemic drugs | CPT/HCPCS: 99213 ==

== ENCOUNTER → 2025-09-21 10:30 | Outpatient (BNVA) | payer MEDICARE, SELFPAY | PROVIDERS: PCP Family Medicine; Visit Provider Podiatrist Foot & Ankle Surgery | DX: E11.42 Type 2 diabetes mellitus with diabetic polyneuropathy (principal); L60.3 Nail dystrophy; Z89.432 Acquired absence of left foot; Z79.84 Long term (current) use of oral hypoglycemic drugs | CPT/HCPCS: 99213 ==